=== PATIENT | female | born 1950 | race Caucasian/White ===

== ENCOUNTER 2018-03-31 09:18 | Outpatient (REF) | payer SELFPAY ==
[2018-04-04 10:03] LABS: HBs Antibody, Quant <3.1 mIU/mL; Hepatitis B Surface Ab Negative
[2018-04-04 10:50] LABS: Measles IgG Antibody Positive; Mumps Antibody IgG Positive (Negative); Varicella IgG Antibody Positive
[2018-04-04 11:03] LABS: Rubella IgG Ab (UVM) Positive
[2018-04-04 14:54] LABS: TB Interpretation Negative (NEGAT); TB1 Ag minus Nil 0.04 IU/mL; TB2 Ag minus Nil 0.02 IU/mL
== END 2018-03-31 09:38 ==
LOC: LBO 09:18
PROVIDERS: PCP Family Medicine; Visit Provider Nurse Practitioner Family
DX: Z02.1 Encounter for pre-employment examination (principal); Z01.84 Encounter for antibody response examination
CPT/HCPCS: 36415; 86706; 86787; 86480; 86735; 86762; 86765

== ENCOUNTER 2018-09-17 23:12 | Emergency (ER) | payer MEDICARE, SELFPAY ==
[2018-09-17 23:18] VITALS: BP 151/85; PULSE 88; RESP 16; TEMP 36.8; O2SAT 97
--- NOTE | 2018-09-17 23:25 | W.ED.GENAD ---
Discharge Plan Disposition Patient Disposition: HOME Condition: Stable Discharge Details Chief Complaint: Trauma Clinical Impression: Numbness of left hand Primary Care Provider: Eulogio Eaton ED Provider: Galo Leigh Home Meds and New Rx's Prescriptions: No Action glipizide 10 MG tablet 10 mg PO DAILY RF: 0 aspirin 325 MG tablet 325 mg PO DAILY RF: 0 calcium carbonate [Calcium 600] 600 MG tablet 1,200 mg PO DAILY RF: 0 simvastatin 80 MG tablet 80 mg PO HS RF: 0 lisinopril 10 mg Tablet 10 mg PO DAILY RF: 0 Januvia 25 mg Tablet 25 mg PO DAILY RF: 0 Discharge Instructions Instructions: Peripheral Neuropathy (ED) Medical Decision Making 68 yo female comes in with complaints of numbness in the left hand. She states that a few days ago she tripped on a step and caught herself with her left hand. Did not have loc. Has no pain but has noticed she has had numbness in all her fingers and having a harder time typing so came here for an eval. 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 No other weakness or other findings to suggest cva and nih of 0. Suspsect likely mild peripheral neuropathy from the fall. Advised f/u with pcp and return precautions given Differential Diagnosis neuropathy, carpal tunnel HPI General Mode of arrival: ambulatory. Date/Time Provider Initiated Documentation: 09/17/18 23:25. Limitations to Documentation: no limitations. Information obtained by: patient. History of Present Illness 68 year old F presents to the emergency department with the chief complaint of left hand numbness, described as moderate, and is localized to the left and upper extremity. Patient reports no radiation. Patient started experiencing this day(s) (4) and it has been constant. No relieving factors improve symptom(s), No exacerbating factors reported . Patient notes no other symptoms.. Patient did receive the following treatments prior to arrival, none Related Data Home Medications Medication Instructions Recorded Confirmed aspirin 325 mg PO DAILY 09/04/12 09/17/18 calcium carbonate [Calcium] 1,200 mg PO DAILY 09/04/12 09/17/18 glipizide 10 mg PO DAILY 09/04/12 09/17/18 simvastatin 80 mg PO HS 09/04/12 09/17/18 lisinopril 10 mg PO DAILY 09/17/18 09/17/18 sitagliptin [Januvia] 25 mg PO DAILY 09/17/18 09/17/18 Allergies Allergy/AdvReac Type Severity Reaction Status Date / Time Sulfa (Sulfonamide Allergy Unverified 09/17/18 23:18 Antibiotics) codeine [Codeine] AdvReac Nausea Unverified 09/17/18 23:18 General Stated Complaint: Trauma KATHERINE: 4 Review of Systems Review of Systems All systems reviewed & are unremarkable except as noted in HPI and below Constitutional Denies fever(s) Cardiovascular Denies dyspnea Respiratory Denies dyspnea Gastrointestinal Denies vomiting Musculoskeletal Denies joint swelling PFSH Social History Smoking/Tobacco Use Status: Never Alcohol Intake: never Drug use: Never Substance use type: does not use Do you feel safe at home: Yes Do you feel safe in your relationship?: Yes Exam Const General: no acute distress Orientation: alert HENMT Head: normal to inspection Ears: external ears normal General nose exam: external nose normal Mouth: moist mucous membranes Eyes General: appearance normal, both eyes and all related structures Neck Neck: normal visual inspection Resp Effort & Inspection: normal respiratory effort and able to speak in complete sentences Cardio Rate: regular rate Skin General skin exam: no rashes or lesions noted Neuro General: alert and oriented x3 Extrem General: normal to inspection Psych Mental Status: mental status grossly normal Course Vital Signs Temperature 36.8 C 09/17/18 23:18 Pulse 88 09/17/18 23:18 Respiratory Rate 16 09/17/18 23:18 Blood Pressure 151/85 H 09/17/18 23:18 Pulse Oximetry 97 09/17/18 23:18 Temperature 36.8 C 09/17/18 23:18 Pulse 88 09/17/18 23:18 Respiratory Rate 16 09/17/18 23:18 Respiratory Effort 09/17/18 23:18 Blood Pressure 151/85 H 09/17/18 23:18 Blood Pressure Position Sitting 09/17/18 23:18 Pulse Oximetry 97 09/17/18 23:18 Oxygen Delivery Method Room Air 09/17/18 23:18 Oxygen Flow Rate 0 09/17/18 23:18
--- NOTE | 2018-09-17 23:36 | ED.GENADUL_ITS ---
Discharge Plan Disposition Patient Disposition: HOME Condition: Stable Discharge Details Chief Complaint: Trauma Clinical Impression: Numbness of left hand Primary Care Provider: Eulogio Eaton ED Provider: Galo Leigh Home Meds and New Rx's Prescriptions: No Action glipizide 10 MG tablet 10 mg PO DAILY RF: 0 aspirin 325 MG tablet 325 mg PO DAILY RF: 0 calcium carbonate [Calcium 600] 600 MG tablet 1,200 mg PO DAILY RF: 0 simvastatin 80 MG tablet 80 mg PO HS RF: 0 lisinopril 10 mg Tablet 10 mg PO DAILY RF: 0 Januvia 25 mg Tablet 25 mg PO DAILY RF: 0 Discharge Instructions Instructions: Peripheral Neuropathy (ED) Medical Decision Making 68 yo female comes in with complaints of numbness in the left hand. She states that a few days ago she tripped on a step and caught herself with her left hand. Did not have loc. Has no pain but has noticed she has had numbness in all her fingers and having a harder time typing so came here for an eval. 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 No other weakness or other findings to suggest cva and nih of 0. Suspsect likely mild peripheral neuropathy from the fall. Advised f/u with pcp and return precautions given Differential Diagnosis neuropathy, carpal tunnel HPI General Mode of arrival: ambulatory . Date/Time Provider Initiated Documentation: 09/17/18 23:25 . Limitations to Documentation: no limitations . Information obtained by: patient . History of Present Illness 68 year old F presents to the emergency department with the chief complaint of left hand numbness, described as moderate, and is localized to the left and upper extremity. Patient reports no radiation. Patient started experiencing this day(s) (4) and it has been constant. No relieving factors improve symptom(s), No exacerbating factors reported . Patient notes no other symptoms.. Patient did receive the following treatments prior to arrival, none Related Data Home Medications Medication Instructions Recorded Confirmed aspirin 325 mg PO DAILY 09/04/12 09/17/18 calcium carbonate [Calcium] 1,200 mg PO DAILY 09/04/12 09/17/18 glipizide 10 mg PO DAILY 09/04/12 09/17/18 simvastatin 80 mg PO HS 09/04/12 09/17/18 lisinopril 10 mg PO DAILY 09/17/18 09/17/18 sitagliptin [Januvia] 25 mg PO DAILY 09/17/18 09/17/18 Allergies Allergy/AdvReac Type Severity Reaction Status Date / Time Sulfa (Sulfonamide Allergy Unverified 09/17/18 23:18 Antibiotics) codeine [Codeine] AdvReac Nausea Unverified 09/17/18 23:18 General Stated Complaint: Trauma KATHERINE: 4 Review of Systems Review of Systems All systems reviewed & are unremarkable except as noted in HPI and below Constitutional Denies fever(s) Cardiovascular Denies dyspnea Respiratory Denies dyspnea Gastrointestinal Denies vomiting Musculoskeletal Denies joint swelling PFSH Social History Smoking/Tobacco Use Status: Never Alcohol Intake: never Drug use: Never Substance use type: does not use Do you feel safe at home: Yes Do you feel safe in your relationship?: Yes Exam Const General: no acute distress Orientation: alert HENMT Head: normal to inspection Ears: external ears normal General nose exam: external nose normal Mouth: moist mucous membranes Eyes General: appearance normal, both eyes and all related structures Neck Neck: normal visual inspection Resp Effort & Inspection: normal respiratory effort and able to speak in complete sentences Cardio Rate: regular rate Skin General skin exam: no rashes or lesions noted Neuro General: alert and oriented x3 Extrem General: normal to inspection Psych Mental Status: mental status grossly normal Course Vital Signs Temperature 36.8 C 09/17/18 23:18 Pulse 88 09/17/18 23:18 Respiratory Rate 16 09/17/18 23:18 Blood Pressure 151/85 H 09/17/18 23:18 Pulse Oximetry 97 09/17/18 23:18 Temperature 36.8 C 09/17/18 23:18 Pulse 88 09/17/18 23:18 Respiratory Rate 16 09/17/18 23:18 Respiratory Effort 09/17/18 23:18 Blood Pressure 151/85 H 09/17/18 23:18 Blood Pressure Position Sitting 09/17/18 23:18 Pulse Oximetry 97 09/17/18 23:18 Oxygen Delivery Method Room Air 09/17/18 23:18 Oxygen Flow Rate 0 09/17/18 23:18
== END 2018-09-17 23:30 | disposition home or self-care (01) ==
LOC: ER 23:46
PROVIDERS: Emergency Provider Emergency Medicine; PCP Family Medicine
DX: R20.2 Paresthesia of skin (principal)
CPT/HCPCS: 29125; 99283; 99282; L3908

== ENCOUNTER 2018-10-07 15:55 | Emergency (ER) | payer MEDICARE, SELFPAY ==
[2018-10-07 16:01] VITALS: BP 169/86; PULSE 106; RESP 18; TEMP 36.8; O2SAT 96
--- NOTE | 2018-10-07 16:51 | DI.COMBO_ITS ---
SYMPTOM/DIAGNOSIS: DISTAL RADIUS LT WRIST PAIN, LT ARM COMPLETE PARALYSIS NONCONTRAST HEAD CT: A noncontrast cranial CT was performed. Note is made of an area of decreased attenuation in the right parietal lobe suggesting cerebral edema. There is effacement of the sulci in this area with moderate generalized cerebral atrophy. There is a rounded mass like radiodensity measuring about 1.6 cm. in diameter located in the cortex highly suspicious for mass lesion. No other focal intracranial lesion identified. No evidence of acute hemorrhage. The orbital and temporal bone structures appear intact. The visualized paranasal sinuses and mastoid air cells are clear. CONCLUSION: Findings suggestive of a right parietal lobe cortical mass with surrounding edema, the findings are suspicious for metastatic disease. Correlation with brain MRI recommended. CERVICAL SPINE CT: CT examination of the cervical spine was performed utilizing multi acquisition and multi planar reconstruction. Images obtained through the lung apices are unremarkable. No cervical mass or adenopathy is seen. Tracheal laryngeal structures appear intact. No evidence of acute cervical fracture. LEFT WRIST: Three views were obtained. Alignment appears within normal limits. There is minimal spurring at the greater multangular first metacarpal joint. No evidence of acute fracture.
--- NOTE | 2018-10-07 17:03 | W.ED.GENAD ---
Discharge Plan Discharge Details Chief Complaint: Orthopedic Primary Care Provider: Eulogio Eaton ED Provider: Calvin Fried Home Meds and New Rx's Prescriptions: No Action aspirin 325 MG tablet 325 mg PO DAILY RF: 0 calcium carbonate [Calcium 600] 600 MG tablet 1,200 mg PO DAILY RF: 0 atorvastatin 80 mg Tablet 80 mg PO QPM RF: 0 bupropion HCl 150 mg Tablet Extended Release 24 Hr 150 mg PO QAM RF: 0 lisinopril 10 mg Tablet 10 mg PO DAILY RF: 0 Januvia 25 mg Tablet 100 mg PO DAILY RF: 0 Medical Decision Making This is a 68-year-old female with past medical history of breast cancer who presents today for evaluation of notable left arm weakness and subjective tingling. She did fall roughly 3 to 4 weeks ago and had mild tingling in her fingers at that time but no significant weakness. Over the last few weeks symptoms have notably worsen. Exam demonstrates near complete paralysis of the left upper extremity. She has no head neck back or shoulder pain whatsoever. Minimal wrist pain on palpation. Sensation is intact including pinprick and light touch for the left upper extremity. No evidence of vascular compromise. With the patient's distant fall, as well as her history of breast cancer I do think that CT imaging is indicated to rule out acute severe pathology of bleed, malignancy, or stroke. Differential also includes double crush syndrome. With no other focal neurologic deficits, no vascular deficits I do not think that angiographic imaging is indicated at this time. 5:[address] image of the head and neck have returned and demonstrate evidence of notable mass in her right brain with extensive right cerebral edema. Mass is present in the right parietal lobe, and a virtual radiology does feel that this is likely congruent with metastatic disease secondary to the significant cerebral edema. CT scan of the neck is negative for any acute process per virtual radiology. We will contact [facility] neurosurgery for further recommendations. With the cerebral edema, 10 mg of Decadron likely indicated in this scenario, however she is otherwise neurovascularly intact, and notably stable. 7 PM I have discussed the case with Dr. Parra of [facility] neurosurgery, he recommends emergent transfer via ER to ER for emergent MRI and neurosurgery evaluation. He agrees with the current Decadron that has been given. He does recommend basic labs. These have been done, and are relatively benign. I have also discussed the case with Dr. Roberts in the emergency department who also agrees with the ER to ER transfer and accepts the patient. The patient remains hemodynamically stable here. No indication for emergent intubation. She shows no neurologic deficits aside for the left arm paralysis. I have extensively reviewed the treatment plan with the patient. I have addressed all patient concerns at this time. I have also discussed the plan with the admitting physician and they agree with the current assessment and plan and have agreed to assume responsibility for the patient. All parties demonstrate verbal understanding and agreement with our assessment and plan at this time. At time of transfer the patient was reassessed and continued to demonstrate current medical stability. No signs of acute respiratory distress requiring intubation, hemodynamic instability requiring pressor support, or rapidly declining mental status. The patient is stable for transport. COMPARISON: No relevant prior studies available. FINDINGS: Bones/joints: No fracture or subluxation. Minimal degenerative changes. Soft tissues: Normal. IMPRESSION: No acute findings. Dictated and Authenticated by: Gatito Saravia MD. Ordering:JERRCIA Simpson MD COMPARISON: No relevant prior studies available. FINDINGS: Bones/joints: No fracture or subluxation. Minimal degenerative changes. Soft tissues: Normal. IMPRESSION: No acute findings. Dictated and Authenticated by: Gatito Saravia MD. Ordering:JERRICA Simpson MD EXAM: CT Head Without Contrast EXAM DATE/TIME: 10/07/2018 4:24 PM CLINICAL HISTORY: 68 years old, female; Signs and symptoms; Other: Left arm complete paralysis TECHNIQUE: Imaging protocol: Axial computed tomography images of the head/brain without contrast. Coronal and sagittal reformatted images were created and reviewed. Other technique: STROKE PROTOCOL was implemented. COMPARISON: No relevant prior studies available. FINDINGS: Brain: There is a rounded mass in the superior right parietal lobe noted to measure up to 1.6 x 1.6 cm with marked surrounding the edema in the right cerebrum. Mild age-related involutional changes. No hemorrhage. Ventricles: Normal. No ventriculomegaly. Bones/joints: Unremarkable. No acute fracture. Sinuses: Visualized sinuses are unremarkable. No acute sinusitis. Mastoid air cells: Visualized mastoid air cells are unremarkable. No mastoid effusion. Soft tissues: Unremarkable. IMPRESSION: Right parietal lobe mass with extensive right cerebral edema. Consider further characterization with contrast-enhanced MRI. ASSESSMENT: ASPECTS ([place] Stroke Program Early CT Score) is 10. EXAM: CT Cervical Spine Without Contrast EXAM DATE/TIME: 10/07/2018 4:24 PM CLINICAL HISTORY: 68 years old, female; Signs and symptoms; Other: Left arm complete paralysis TECHNIQUE: Imaging protocol: Axial computed tomography images of the cervical spine without contrast. Coronal and sagittal reformatted images were created and reviewed. COMPARISON: No relevant prior studies available. FINDINGS: Vertebrae: No acute fracture. Normal alignment. Discs/Spinal canal/Neural foramina: Moderate degenerative spondylitic changes. No severe canal stenosis. Soft tissues: Unremarkable. Lungs: Lung apices are normal. Vasculature: Atherosclerosis. IMPRESSION: No acute findings. Dictated and Authenticated by: Gatito Saravia MD. Ordering:JERRICA Simpson MD HPI General Date/Time Provider Initiated Documentation: 10/07/18 15:59. HPI Narrative: This is a very pleasant 68-year-old female with a past medical history of breast cancer in 2006, cardiac stent, cholesterol, borderline diabetes, and hypertension who presents today for severe weakness of her left arm. She was initially seen and assessed here on 09/17 by my colleague, at which time her only symptom was tingling in the left hand (she is right-hand dominant). At that time there was no weakness in the upper extremity, nearly a subjective tingling in the hand, there was a conjunction of fall at that time, but the patient denied any trauma to her head or neck. She only had a mild amount of trauma to her hand. Since then the patient has noted progressive weakness of her left upper extremity for all components. Patient states that she was seen by her PCP who then referred her to physical therapy. In spite of physical therapy the patient has noted worsening of her weakness, and at this point she describes her left arm is feeling nearly paralyzed, with only being able to do small movements of her fingers. She admits to sensation throughout the entire arm, but also admits to a tingling and prickling sensation throughout the entire arm as well. She does admit to pain in the proximal wrist but denies any pain in the arm neck head shoulder elbow or hand. She denies any burning sensation. She denies any other complaints. Of note she does state that 2 days ago she did fall, she did hit her left shoulder and this did make her symptoms slightly worse. She denies any pain in her left shoulder though. She has no other complaints at this time. Of note her breast cancer was in 2006 and surgically excised from the left breast. Related Data Home Medications Medication Instructions Recorded Confirmed aspirin 325 mg PO DAILY 09/04/12 10/07/18 calcium carbonate [Calcium] 1,200 mg PO DAILY 09/04/12 10/07/18 lisinopril 10 mg PO DAILY 09/17/18 10/07/18 sitagliptin [Januvia] 100 mg PO DAILY 09/17/18 10/07/18 atorvastatin 80 mg PO QPM 10/07/18 10/07/18 bupropion HCl 150 mg PO QAM 10/07/18 10/07/18 Allergies Allergy/AdvReac Type Severity Reaction Status Date / Time Sulfa (Sulfonamide Allergy Unverified 10/07/18 18:17 Antibiotics) codeine [Codeine] AdvReac Nausea Unverified 10/07/18 18:17 General Stated Complaint: Orthopedic KATHERINE: 3 Review of Systems Review of Systems All systems reviewed & are unremarkable except as noted in HPI and below PFSH Social History Smoking/Tobacco Use Status: Never Alcohol Intake: never Drug use: Never Substance use type: does not use Do you feel safe at home: Yes Do you feel safe in your relationship?: Yes Exam Narrative Exam Narrative: 1.Const: Well-nourished, Well-developed, appearing stated age 2.Eyes: PERRL, no conjunctival injection, and symmetrical lids. 3.ENT: Atraumatic external nose and ears. Moist MM. Neck: Symmetric, trachea midline, No thyromegaly. 4.CVS: +S1/S2, No murmurs or gallops. Peripheral pulses 2+ and equal in all extremities. Brisk capillary refill in all extremities. 5.RESP: Unlabored respiratory effort. Clear to auscultation bilaterally. No wheezes rales or rhonchi 6.GI: Soft, Nontender/Nondistended, No hepatosplenomegaly. No guarding or rebound. 7.MSK: Normocephalic/Atraumatic, Extremities w/o deformity. Mild tenderness on palpation of the left distal radius and ulna, no snuffbox tenderness. No cyanosis or clubbing, left upper extremity demonstrates no strength whatsoever in the shoulder, minimal 1 out of 5 strength at the elbow for flexion but not extension. No strength for the wrist movement, minimal movement is present for the fingers, with only slight flexion strength present. However sensation is intact throughout for both light touch and pinprick for all fingers, arm, forearm, and shoulder. Capillary refill is brisk in all distal fingers, radial pulse +2 bilaterally. Right upper extremity and bilateral lower extremity is otherwise normal. 8.Skin: Warm, Dry. No rashes or lesions. 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 Sensation grossly intact, please see musculoskeletal for sensation description. We had a near total paralysis of the left upper extremity, please see musculoskeletal. However the right extremity demonstrates no evidence of dysdiadochokinesia, or difficulty with [id number]. Normal movement of the lower extremities bilaterally. 10.Psych: (AAO) x3. Appropriate mood and affect Course Vital Signs Temperature 36.8 C 10/07/18 16:01 Pulse 106 H 10/07/18 16:01 Respiratory Rate 18 10/07/18 16:01 Blood Pressure 169/86 H 10/07/18 16:01 Pulse Oximetry 96 10/07/18 16:01 Temperature 36.8 C 10/07/18 16:01 Temperature Source Skin 10/07/18 16:01 Pulse 106 H 10/07/18 16:01 Respiratory Rate 18 10/07/18 16:01 Respiratory Effort Non-Labored 10/07/18 16:28 Blood Pressure 169/86 H 10/07/18 16:01 Blood Pressure Position Sitting 10/07/18 16:01 Pulse Oximetry 96 10/07/18 16:01
--- NOTE | 2018-10-07 17:07 | DI.VRAD_ITS ---
Addendum created by Gatito Saravia MD on 10/07/2018 5:15:16 PM EDT THIS REPORT CONTAINS FINDINGS THAT MAY BE CRITICAL TO PATIENT CARE. The findings were verbally communicated via telephone conference with BILLY BURR at 5:15 PM EDT on 10/07/2018. The findings were acknowledged and understood. Initial report created on 10/07/2018 5:07:20 PM EDT EXAM: CT Head Without Contrast EXAM DATE/TIME: 10/07/2018 4:24 PM CLINICAL HISTORY: 68 years old, female; Signs and symptoms; Other: Left arm complete paralysis TECHNIQUE: Imaging protocol: Axial computed tomography images of the head/brain without contrast. Coronal and sagittal reformatted images were created and reviewed. Other technique: STROKE PROTOCOL was implemented. COMPARISON: No relevant prior studies available. FINDINGS: Brain: There is a rounded mass in the superior right parietal lobe noted to measure up to 1.6 x 1.6 cm with marked surrounding the edema in the right cerebrum. Mild age-related involutional changes. No hemorrhage. Ventricles: Normal. No ventriculomegaly. Bones/joints: Unremarkable. No acute fracture. Sinuses: Visualized sinuses are unremarkable. No acute sinusitis. Mastoid air cells: Visualized mastoid air cells are unremarkable. No mastoid effusion. Soft tissues: Unremarkable. IMPRESSION: Right parietal lobe mass with extensive right cerebral edema. Consider further characterization with contrast-enhanced MRI. ASSESSMENT: ASPECTS ([place] Stroke Program Early CT Score) is 10. EXAM: CT Cervical Spine Without Contrast EXAM DATE/TIME: 10/07/2018 4:24 PM CLINICAL HISTORY: 68 years old, female; Signs and symptoms; Other: Left arm complete paralysis TECHNIQUE: Imaging protocol: Axial computed tomography images of the cervical spine without contrast. Coronal and sagittal reformatted images were created and reviewed. COMPARISON: No relevant prior studies available. FINDINGS: Vertebrae: No acute fracture. Normal alignment. Discs/Spinal canal/Neural foramina: Moderate degenerative spondylitic changes. No severe canal stenosis. Soft tissues: Unremarkable. Lungs: Lung apices are normal. Vasculature: Atherosclerosis. IMPRESSION: No acute findings. Dictated and Authenticated by: Gatito Saravia MD. Ordering:JERRICA Simpson MD
--- NOTE | 2018-10-07 17:26 | DI.VRAD_ITS ---
EXAM: XR Left Wrist Complete, 3 or more Views EXAM DATE/TIME: 10/07/2018 4:59 PM CLINICAL HISTORY: 68 years old, female; Wrist; Left; Patient HX: Distal radius pain TECHNIQUE: Imaging protocol: XR Left wrist. Views: 3 or more views. COMPARISON: No relevant prior studies available. FINDINGS: Bones/joints: No fracture or subluxation. Minimal degenerative changes. Soft tissues: Normal. IMPRESSION: No acute findings. Dictated and Authenticated by: Gatito Saravia MD. Ordering:JERRICA Simpson MD
[2018-10-07] MEDS: Dexamethasone 10 MG/ML VIAL IM (17:37)
[2018-10-07 18:34] LABS: Abs Immature Grans 0.03 k/cumm (0.0-0.09); HCT 39.2 % (36.0-46.0); HGB 13.2 g/dL (12.0-15.5); Mean Corp. HGB Concentration 33.7 g/dL (32.0-36.0); Mean Corpuscular Hemoglobin 30.6 pg (27.0-33.0); Mean Platelet Volume 9.8 fL (8.0-11.0); Platelet Count 263 x1000/uL (130-400); RBC 4.31 m/cumm (4.00-5.20); RBC Distribution Width 13.2 % (11.7-14.6)
[2018-10-07 18:55] LABS: Absolute Eosinophil Count 0.98 k/cumm (0.0-0.7); Absolute Lymphocyte Count 1.72 k/cumm (1.2-3.4); Absolute Monocyte Count 0.49 k/cumm (0.11-0.7); Atypical Lymphocytes % 4
[2018-10-07 18:56] LABS: Diff Comment Manual Differential; RBC Morphology Normal
[2018-10-07 19:01] LABS: ALT 27 U/L (12-78); AST 11 U/L (15-37); Albumin 3.7 g/dL (3.4-5.0); Alkaline Phosphatase 94 U/L (46-116); Anion Gap 10.9 mmol/L (3-11); BUN 22 mg/dL (7-18); Bilirubin, Total 0.6 mg/dL (0.2-1.0); CO2 26.1 mmol/L (21.0-32.0); CREATININE 0.84 mg/dL (0.55-1.02); Calcium 9.5 mg/dL (8.5-10.1); Chloride 101 mmol/L (98-107); Glucose 166 mg/dL (70-100); Potassium 3.9 mmol/L (3.5-5.1); Sodium 138 mmol/L (136-145); Total Protein 7.7 g/dL (6.4-8.2)
[2018-10-07 19:26] VITALS: BP 143/83; PULSE 106; RESP 18; O2SAT 96
[2018-10-07] MEDS: Ondansetron 4 MG/2 ML VIAL (19:34)
[2018-10-07 19:39] VITALS: BP 143/83; PULSE 106; RESP 18; O2SAT 96
== END 2018-10-07 19:39 ==
PROVIDERS: Emergency Provider Student in an Organized Health Care Education/Training Program; PCP Family Medicine
DX: G93.9 Disorder of brain, unspecified (principal); G93.6 Cerebral edema; G83.24 Monoplegia of upper limb affecting left nondominant side; W01.0XXA Fall on same level from slipping, tripping and stumbling without subsequent striking against object, initial encounter
CPT/HCPCS: 36415; 80053; 96372; 96374; 99285; 70450; 72125; 73110; 85025; 99284; J1100; J2405

== ENCOUNTER 2018-11-09 16:26 | Emergency (ER) | payer MEDICARE, SELFPAY ==
[2018-11-09] VITALS (33 sets, daily range): BP systolic 101–141; BP diastolic 38–116; PULSE 60–88; RESP 11–30; TEMP 36.7; O2SAT 94–97
--- NOTE | 2018-11-09 17:05 | DI.CT_ITS ---
SYMPTOM/DIAGNOSIS: CANCER, SMALL BLEED, SEIZURE TODAY CT BRAIN: Noncontrast. Comparison 10/07/18. FINDING: There is again seen a mass in the biparietal lobe currently measuring 1.8 x 1.5 cm. This compares with 1.6 x 1.3 cm. There is a prominent amount of vasogenic edema in the surrounding white matter. Since the prior examination there is a new 1 x 0.9 x 0.8 cm round hyperdense region at the medial aspect of the right parietal mass most concerning for a small acute hemorrhage. There is mild effacement of the adjacent sulci. There is also again seen a mild 2 mm right to left midline shift. This shift is unchanged compared to the prior examination The ventricles and sulci are mildly prominent consistent with the patient's age. There are areas of decreased attenuation of the white matter consistent with small vessel ischemic disease. The ventricles are intact. The basilar cisterns are patent. The calvarium is intact. The visualized paranasal sinuses are clear. The mastoid air cells arae well pneumatized. IMPRESSION: 1. New 1 x 0.9 x 0.8 cm hyperdense focus at the medial aspect of the previously noted right parietal lesion suggesting a small acute hemorrhage. 2. Slight increase in size of the right parietal mass since 10/07/18, again metastatic disease is suspected. Moderate surrounding vasogenic edema in the right frontal and parietal lobe. 3. Persistent stable 2 mm right to left midline shift.
--- NOTE | 2018-11-09 17:14 | NUR.NOTE ---
Nursing Note: Pt reports that her left arm suddenly started shaking today. Pt reports that she under went radiation therapy yesterday for a brain tumor. Pt reports that her symptoms started suddnely today. Denied loss of consciousness. Pt was able to recall the entire episode.
[2018-11-09 17:24] LABS: Abs Immature Grans 0.08 k/cumm (0.0-0.09); Absolute Basophil Count 0.01 k/cumm (0.0-0.2); Absolute Eosinophil Count 0.01 k/cumm (0.0-0.7); Absolute Lymphocyte Count 1.05 k/cumm (1.2-3.4); Absolute Monocyte Count 0.57 k/cumm (0.11-0.7); Absolute Neutrophil Count 6.37 k/cumm (1.2-6.7); Basophils % 0.1; Eosinophils % 0.1; HCT 42.8 % (36.0-46.0); HGB 14.4 g/dL (12.0-15.5); Mean Corp. HGB Concentration 33.6 g/dL (32.0-36.0); Mean Corpuscular Volume 92.2 fL (80-95); Mean Platelet Volume 10.4 fL (8.0-11.0); Neutrophils % 78.8; Platelet Count 166 x1000/uL (130-400); RBC 4.64 m/cumm (4.00-5.20); RBC Distribution Width 14.6 % (11.7-14.6); White Blood Cell Count 8.09 k/cumm (4.4-10.8)
[2018-11-09 17:37] LABS: ALT 123 U/L (12-78); AST 24 U/L (15-37); Albumin 3.7 g/dL (3.4-5.0); Alkaline Phosphatase 103 U/L (46-116); BUN 21 mg/dL (7-18); Bilirubin, Total 0.7 mg/dL (0.2-1.0); CREATININE 0.82 mg/dL (0.55-1.02); Calcium 9.2 mg/dL (8.5-10.1); Chloride 99 mmol/L (98-107); Glucose 312 mg/dL (70-100); Sodium 137 mmol/L (136-145)
--- NOTE | 2018-11-09 18:15 | DI.VRAD_ITS ---
EXAM: CT Head Without Contrast EXAM DATE/TIME: 11/09/2018 5:07 PM CLINICAL HISTORY: 68 years old, female; Signs and symptoms; Other: Seizure today, small head bleed, CA TECHNIQUE: Imaging protocol: Axial computed tomography images of the head without contrast. Coronal and sagittal reformatted images were created and reviewed. COMPARISON: CT HEAD CERVICAL SPINE WO 10/07/2018 4:39 PM FINDINGS: Brain: Mild generalized atrophy with minimal periventricular white matter ischemic changes consistent with the patient's advanced age. No extra-axial fluid collections. No evidence of acute or subacute intracranial ischemia/infarct. Midline shift: 2 mm [id number] midline shift unchanged. No evidence of herniation. Ventricles: Ventricles normal. Bones/joints: The calvarium and visualized facial bones are intact. Sinuses: Visualized paranasal sinuses are clear. Mastoid air cells: Visualized mastoid air cells are clear. Orbits: There is a new 10 x 9 by 8mm focus of hyperdensity measuring 60 Hounsfield units along the medial margin of the previously identified mass lesion in the right frontoparietal distribution. This is concerning for small acute hemorrhage. Orbital contents demonstrate no evidence of acute abnormality. Soft tissues: The mass itself measures measures 18.2 x 14.7 mm on coronal series 7 image 55, which is increased from the previous exam 10/07/2018, measuring 16.0 x 13.2 mm on comparison coronal image 48 of series 7. This suggests progression of intracranial malignancy. There is moderate surrounding vasogenic edema which is not substantially changed in severity or distribution from the previous study. The screws is mild local mass effect with asymmetric right frontal sulcal effacement. The scalp and visualized soft tissues are unremarkable. Vasculature: Mild atherosclerotic vascular calcification. IMPRESSION: 1. There is a new 10 x 9 by 8mm focus of hyperdensity along the medial margin of the previously identified cortically based right frontoparietal lesion, suggesting a small acute hemorrhage. 2. The mass lesion itself is slightly increased in size since 10/07/2018, suggesting progression of malignancy. 3. There is moderate surrounding vasogenic edema in the right frontal lobe producing mild local mass effect with only slight 2 mm right to left midline shift which is unchanged. 4. THIS REPORT CONTAINS FINDINGS THAT MAY BE CRITICAL TO PATIENT CARE. The findings were verbally communicated via telephone conference with BILLY BURR at 6:13 PM EDT on 11/09/2018. The findings were acknowledged and understood. Dictated and Authenticated by: Eulogio Porter MD. Ordering:JERRICA Simpson MD
--- NOTE | 2018-11-09 19:35 | W.ED.GENAD ---
Discharge Plan Disposition Patient Disposition: [facility] Condition: Stable Discharge Details Chief Complaint: Seizure Clinical Impression: Focal seizure, Brain mass Primary Care Provider: Eulogio Eaton ED Provider: Calvin Burr Home Meds and New Rx's Prescriptions: No Action calcium carbonate [Calcium 600] 600 MG tablet 1,200 mg PO DAILY RF: 0 atorvastatin 80 mg Tablet 80 mg PO QPM RF: 0 bupropion HCl 150 mg Tablet Extended Release 24 Hr 150 mg PO QAM RF: 0 lisinopril 10 mg Tablet 10 mg PO DAILY RF: 0 Januvia 25 mg Tablet 100 mg PO DAILY RF: 0 Medical Decision Making Upon my evaluation, this patient had a high probability of imminent or life-threatening deterioration, which required my direct attention, intervention, and personal management. I have personally provided 45 minutes of critical care time exclusive of time spent on separately billable procedures. Time includes review of laboratory data, radiology results, discussion with consultants, and monitoring for potential decompensation. Interventions were performed as documented above. 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 She recently had an MRI which showed a small hemorrhage roughly a week ago, and had radiation therapy yesterday. 48 hours ago she noticed a small tremor of her left arm, which results in a complete convulsion of the arm with notable excellence leader, flexion at the elbow, and drying up from the shoulder. Over the last 12 to 24 hours the frequency and severity of the symptoms is notably increased. Here in the ED she has had 3-4 episodes already. It is gone from just being the hand to now encompassing the elbow and shoulder a small amount of the platysma on the left. She is otherwise neurologically intact with no deficits whatsoever aside for her chronic components. Airway is notably intact, no signs of obtundation. She has been taking her 500 mg of Keppra twice daily, and the Decadron as directed outpatient. With her concerning symptoms, repeat head CT was done, there is evidence of continued vasogenic edema, the mass, and the small hemorrhage. We did contact [facility] and I initially discussed the case with Leslie Carlos, who reviewed and compared the images, she also discussed with her attending Dr. Manning, and they recommend that the patient be transferred to the neuro ICU for further evaluation. They recommended dosing with a gram of Keppra as well. I reviewed all other components of the case, they had no additional recommendations at this time. Dr. Clarke will be the accepting physician to the ICU, I also spoke with the fellow Dr. Callaway, and discussed the case and findings with him. He agrees with the current plan has no other additional recommendations or concerns. Patient will be transferred to [facility] for neuro ICU management. I have extensively reviewed the treatment plan with the patient. I have addressed all patient concerns at this time. I have also discussed the plan with the admitting physician and they agree with the current assessment and plan and have agreed to assume responsibility for the patient. All parties demonstrate verbal understanding and agreement with our assessment and plan at this time. At time of transfer the patient was reassessed and continued to demonstrate current medical stability. No signs of acute respiratory distress requiring intubation, hemodynamic instability requiring pressor support, or rapidly declining mental status. The patient is stable for transport. Exam(s) EXAM: CT Head Without Contrast EXAM DATE/TIME: 11/09/2018 5:07 PM CLINICAL HISTORY: 68 years old, female; Signs and symptoms; Other: Seizure today, small head bleed, CA TECHNIQUE: Imaging protocol: Axial computed tomography images of the head without contrast. Coronal and sagittal reformatted images were created and reviewed. COMPARISON: CT HEAD CERVICAL SPINE WO 10/07/2018 4:39 PM FINDINGS: Brain: Mild generalized atrophy with minimal periventricular white matter ischemic changes consistent with the patient's advanced age. No extra-axial fluid collections. No evidence of acute or subacute intracranial ischemia/infarct. Midline shift: 2 mm [id number] midline shift unchanged. No evidence of herniation. Ventricles: Ventricles normal. Bones/joints: The calvarium and visualized facial bones are intact. Sinuses: Visualized paranasal sinuses are clear. Mastoid air cells: Visualized mastoid air cells are clear. Orbits: There is a new 10 x 9 by 8mm focus of hyperdensity measuring 60 Hounsfield units along the medial margin of the previously identified mass lesion in the right frontoparietal distribution. This is concerning for small acute hemorrhage. Orbital contents demonstrate no evidence of acute abnormality. Soft tissues: The mass itself measures measures 18.2 x 14.7 mm on coronal series 7 image 55, which is increased from the previous exam 10/07/2018, measuring 16.0 x 13.2 mm on comparison coronal image 48 of series 7. This suggests progression of intracranial malignancy. There is moderate surrounding vasogenic edema which is not substantially changed in severity or distribution from the previous study. The screws is mild local mass effect with asymmetric right frontal sulcal effacement. The scalp and visualized soft tissues are unremarkable. Vasculature: Mild atherosclerotic vascular calcification. IMPRESSION: 1. There is a new 10 x 9 by 8mm focus of hyperdensity along the medial margin of the previously identified cortically based right frontoparietal lesion, suggesting a small acute hemorrhage. 2. The mass lesion itself is slightly increased in size since 10/07/2018, suggesting progression of malignancy. 3. There is moderate surrounding vasogenic edema in the right frontal lobe producing mild local mass effect with only slight 2 mm right to left midline shift which is unchanged. 4. THIS REPORT CONTAINS FINDINGS THAT MAY BE CRITICAL TO PATIENT CARE. The findings were verbally communicated via telephone conference with CALVIN BURR at 6:13 PM EDT on 11/09/2018. The findings were acknowledged and understood. Dictated and Authenticated by: Eulogio Porter MD. Ordering:JERRICA Simpson MD HPI General Date/Time Provider Initiated Documentation: 11/09/18 16:58. HPI Narrative: This is a 68-year-old female with a past medical history of a right-sided brain tumor which was diagnosed roughly a month ago, she is chronically now on Decadron and Keppra 500 mg twice daily. She presents today for evaluation of focal tremor in her left arm. She has chronic left arm paralysis secondary to the tumor, she states that 48 hours ago she noticed a small intermittent tremor in her left hand. It would resolve on its own. No other associated components. She had a radiation therapy yesterday at [facility], and MRI performed roughly a week ago demonstrated an known small hemorrhage. She has been taking her medications as directed, however in spite of this today she noticed a significant worsening in the tremor, encompassing her hand and forearm and becoming more frequent. Aside for this she denies any pain, dizziness, headache, fever chills numbness or tingling new compared to prior symptoms. Related Data Home Medications Medication Instructions Recorded Confirmed calcium carbonate [Calcium] 1,200 mg PO DAILY 09/04/12 11/09/18 lisinopril 10 mg PO DAILY 09/17/18 11/09/18 sitagliptin [Januvia] 100 mg PO DAILY 09/17/18 11/09/18 atorvastatin 80 mg PO QPM 10/07/18 11/09/18 bupropion HCl 150 mg PO QAM 10/07/18 11/09/18 Allergies Allergy/AdvReac Type Severity Reaction Status Date / Time nickel Allergy Unverified 11/09/18 16:46 Sulfa (Sulfonamide Allergy Unverified 11/09/18 16:46 Antibiotics) codeine [Codeine] AdvReac Nausea Unverified 11/09/18 16:46 General Stated Complaint: Seizure KATHERINE: 3 Review of Systems Review of Systems All systems reviewed & are unremarkable except as noted in HPI and below PFSH Social History Smoking/Tobacco Use Status: Never Alcohol Intake: never Drug use: Never Substance use type: does not use Do you feel safe at home: Yes Do you feel safe in your relationship?: Yes Exam Narrative Exam Narrative: 1.Const: Well-nourished, Well-developed, appearing stated age 2.Eyes: PERRL, no conjunctival injection, and symmetrical lids. 3.ENT: Atraumatic external nose and ears. Moist MM. Neck: Symmetric, trachea midline, No thyromegaly. 4.CVS: +S1/S2, No murmurs or gallops. Peripheral pulses 2+ and equal in all extremities. Brisk capillary refill in all extremities. 5.RESP: Unlabored respiratory effort. Clear to auscultation bilaterally. No wheezes rales or rhonchi 6.GI: Soft, Nontender/Nondistended, No hepatosplenomegaly. No guarding or rebound. 7.MSK: Normocephalic/Atraumatic, Extremities w/o deformity or ttp No cyanosis or clubbing, Normal movement of all extremities 8.Skin: Warm, Dry. No rashes or lesions. 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 Sensation grossly intact, normal movement of the right upper extremity and lower extremities, no dysdiadochokinesia for the right hand, normal [id number] for the right hand. No evidence of ataxia or significant imbalance. Left arm demonstrates chronic paralysis, with minimal movement of the fingers and wrist. No significant acute change. 10.Psych: (AAO) x3. Appropriate mood and affect Course Vital Signs Temperature 36.7 C 11/09/18 16:38 Pulse 80 11/09/18 16:38 Respiratory Rate 20 11/09/18 16:38 Blood Pressure 141/88 H 11/09/18 16:38 Pulse Oximetry 96 11/09/18 16:38 Temperature 36.7 C 11/09/18 16:38 Temperature Source Tympanic 11/09/18 16:38 Pulse 72 11/09/18 18:19 Respiratory Rate 12 11/09/18 18:19 Respiratory Effort Short of Breath 11/09/18 16:41 Respiratory Depth Normal 11/09/18 16:41 Respiratory Pattern Normal 11/09/18 16:41 Blood Pressure 132/74 11/09/18 18:19 Blood Pressure Position Sitting 11/09/18 16:38 Pulse Oximetry 96 11/09/18 18:19 Oxygen Delivery Method Room Air 11/09/18 18:19 Oxygen Flow Rate 0 11/09/18 18:19 Pain Level 0 11/09/18 16:38 Lab/Test Results Lab/Test Results: Laboratory Tests Range/Units 11/09/18 11/09/18 17:08 17:08 WBC (4.4-10.8) k/cumm 8.09 RBC (4.00-5.20) m/cumm 4.64 Hgb (12.0-15.5) g/dL 14.4 Hct (36.0-46.0) % 42.8 MCV (80-95) fL 92.2 MCH (27.0-33.0) pg 31.0 MCHC (32.0-36.0) g/dL 33.6 RDW (11.7-14.6) % 14.6 Plt Count (130-400) x1000/uL 166 MPV (8.0-11.0) fL 10.4 Immature Gran % 1.0 Neutrophils % 78.8 Lymphocytes % 13.0 Monocytes % 7.0 Eosinophils % 0.1 Basophils % 0.1 Absolute Neutrophils (1.2-6.7) k/cumm 6.37 Absolute Lymphocytes (1.2-3.4) k/cumm 1.05 L Absolute Monocytes (0.11-0.7) k/cumm 0.57 Absolute Eosinophils (0.0-0.7) k/cumm 0.01 Absolute Basophils (0.0-0.2) k/cumm 0.01 Sodium (136-145) mmol/L 137 Potassium (3.5-5.1) mmol/L 4.0 Chloride (98-107) mmol/L 99 Carbon Dioxide (21.0-32.0) mmol/L 30.0 Anion Gap (3-11) mmol/L 8.0 BUN (7-18) mg/dL 21 H Creatinine (0.55-1.02) mg/dL 0.82 Estimated GFR/1.73 m2 (mL/min/1.73m2) >= 60.00 Glucose (70-100) mg/dL 312 H Calcium (8.5-10.1) mg/dL 9.2 Total Bilirubin (0.2-1.0) mg/dL 0.7 AST (15-37) U/L 24 ALT (12-78) U/L 123 H Alkaline Phosphatase (46-116) U/L 103 Total Protein (6.4-8.2) g/dL 7.0 Albumin (3.4-5.0) g/dL 3.7
[2018-11-09] MEDS: levETIRAcetam 1,000 MG in Normal Saline 100 ML 400 MG IVPB (19:42)
[2018-11-09] MEDS: Dexamethasone 4 MG/ML VIAL IVP (20:23)
--- NOTE | 2018-11-09 20:27 | ED.GENADUL_ITS ---
Discharge Plan Disposition Patient Disposition: [facility] Condition: Stable Discharge Details Chief Complaint: Seizure Clinical Impression: Focal seizure, Brain mass Primary Care Provider: Eulogio Eaton ED Provider: Calvin Burr Home Meds and New Rx's Prescriptions: No Action calcium carbonate [Calcium 600] 600 MG tablet 1,200 mg PO DAILY RF: 0 atorvastatin 80 mg Tablet 80 mg PO QPM RF: 0 bupropion HCl 150 mg Tablet Extended Release 24 Hr 150 mg PO QAM RF: 0 lisinopril 10 mg Tablet 10 mg PO DAILY RF: 0 Januvia 25 mg Tablet 100 mg PO DAILY RF: 0 Medical Decision Making Upon my evaluation, this patient had a high probability of imminent or life- threatening deterioration, which required my direct attention, intervention, and personal management. I have personally provided 45 minutes of critical care time exclusive of time spent on separately billable procedures. Time includes review of laboratory data, radiology results, discussion with consultants, and monitoring for potential decompensation. Interventions were performed as documented above. 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 She recently had an MRI which showed a small hemorrhage roughly a week ago, and had radiation therapy yesterday. 48 hours ago she noticed a small tremor of her left arm, which results in a complete convulsion of the arm with notable control room helper, flexion at the elbow, and drying up from the shoulder. Over the last 12 to 24 hours the frequency and severity of the symptoms is notably increased. Here in the ED she has had 3-4 episodes already. It is gone from just being the hand to now encompassing the elbow and shoulder a small amount of the platysma on the left. She is otherwise neurologically intact with no deficits whatsoever aside for her chronic components. Airway is notably intact, no signs of obtundation. She has been taking her 500 mg of Keppra twice daily, and the Decadron as directed outpatient. With her concerning symptoms, repeat head CT was done, there is evidence of continued vasogenic edema, the mass, and the small hemorrhage. We did contact [facility] and I initially discussed the case with Leslie Carlos, who reviewed and compared the images, she also discussed with her attending Dr. Manning, and they recommend that the patient be transferred to the neuro ICU for further evaluation. They recommended dosing with a gram of Keppra as well. I reviewed all other components of the case, they had no additional recommendations at this time. Dr. Clarke will be the accepting physician to the ICU, I also spoke with the fellow Dr. Callaway, and discussed the case and findings with him. He agrees with the current plan has no other additional recommendations or concerns. Patient will be transferred to [facility] for neuro ICU management. I have extensively reviewed the treatment plan with the patient. I have addressed all patient concerns at this time. I have also d iscussed the plan with the admitting physician and they agree with the current assessment and plan and have agreed to assume responsibility for the patient. All parties demonstrate verbal understanding and agreement with our assessment and plan at this time. At time of transfer the patient was reassessed and continued to demonstrate current medical stability. No signs of acute respiratory distress requiring intubation, hemodynamic instability requiring pressor support, or rapidly declining mental status. The patient is stable for transport. Exam(s) EXAM: CT Head Without Contrast EXAM DATE/TIME: 11/09/2018 5:07 PM CLINICAL HISTORY: 68 years old, female; Signs and symptoms; Other: Seizure today, small head bleed, CA TECHNIQUE: Imaging protocol: Axial computed tomography images of the head without contrast. Coronal and sagittal reformatted images were created and reviewed. COMPARISON: CT HEAD CERVICAL SPINE WO 10/07/2018 4:39 PM FINDINGS: Brain: Mild generalized atrophy with minimal periventricular white matter ischemic changes consistent with the patient's advanced age. No extra-axial fluid collections. No evidence of acute or subacute intracranial ischemia/infarct. Midline shift: 2 mm [id number] midline shift unchanged. No evidence of herniation. Ventricles: Ventricles normal. Bones/joints: The calvarium and visualized facial bones are intact. Sinuses: Visualized paranasal sinuses are clear. Mastoid air cells: Visualized mastoid air cells are clear. Orbits: There is a new 10 x 9 by 8mm focus of hyperdensity measuring 60 Hounsfield units along the medial margin of the previously identified mass lesion in the right frontoparietal distribution. This is concerning for small acute hemorrhage. Orbital contents demonstrate no evidence of acute abnormality. Soft tissues: The mass itself measures measures 18.2 x 14.7 mm on coronal series 7 image 55, which is increased from the previous exam 10/07/2018, measuring 16.0 x 13.2 mm on comparison coronal image 48 of series 7. This suggests progression of intracranial malignancy. There is moderate surrounding vasogenic edema which is not substantially changed in severity or distribution from the previous study. The screws is mild local mass effect with asymmetric right frontal sulcal effacement. The scalp and visualized soft tissues are unremarkable. Vasculature: Mild atherosclerotic vascular calcification. IMPRESSION: 1. There is a new 10 x 9 by 8mm focus of hyperdensity along the medial margin of the previously identified cortically based right frontoparietal lesion, suggesting a small acute hemorrhage. 2. The mass lesion itself is slightly increased in size since 10/07/2018, suggesting progression of malignancy. 3. There is moderate surrounding vasogenic edema in the right frontal lobe producing mild local mass effect with only slight 2 mm right to left midline shift which is unchanged. 4. THIS REPORT CONTAINS FINDINGS THAT MAY BE CRITICAL TO PATIENT CARE. The findings were verbally communicated via telephone conference with CALVIN BURR at 6:13 PM EDT on 11/09/2018. The findings were acknowledged and understood. Dictated and Authenticated by: Eulogio Porter MD. Ordering:JERRICA Simpson MD HPI General Date/Time Provider Initiated Documentation: 11/09/18 16:58 . HPI Narrative: This is a 68-year-old female with a past medical history of a right- sided brain tumor which was diagnosed roughly a month ago, she is chronically now on Decadron and Keppra 500 mg twice daily. She presents today for evaluation of focal tremor in her left arm. She has chronic left arm paralysis secondary to the tumor, she states that 48 hours ago she noticed a small intermittent tremor in her left hand. It would resolve on its own. No other associated components. She had a radiation therapy yesterday at [facility], and MRI performed roughly a week ago demonstrated an known small hemorrhage. She has been taking her medications as directed, however in spite of this today she noticed a significant worsening in the tremor, encompassing her hand and forearm and becoming more frequent. Aside for this she denies any pain, dizziness, headache, fever chills numbness or tingling new compared to prior symptoms. Related Data Home Medications Medication Instructions Recorded Confirmed calcium carbonate [Calcium] 1,200 mg PO DAILY 09/04/12 11/09/18 lisinopril 10 mg PO DAILY 09/17/18 11/09/18 sitagliptin [Januvia] 100 mg PO DAILY 09/17/18 11/09/18 atorvastatin 80 mg PO QPM 10/07/18 11/09/18 bupropion HCl 150 mg PO QAM 10/07/18 11/09/18 Allergies Allergy/AdvReac Type Severity Reaction Status Date / Time nickel Allergy Unverified 11/09/18 16:46 Sulfa (Sulfonamide Allergy Unverified 11/09/18 16:46 Antibiotics) codeine [Codeine] AdvReac Nausea Unverified 11/09/18 16:46 General Stated Complaint: Seizure KATHERINE: 3 Review of Systems Review of Systems All systems reviewed & are unremarkable except as noted in HPI and below PFSH Social History Smoking/Tobacco Use Status: Never Alcohol Intake: never Drug use: Never Substance use type: does not use Do you feel safe at home: Yes Do you feel safe in your relationship?: Yes Exam Narrative Exam Narrative: 1.Const: Well-nourished, Well-developed, appearing stated age 2.Eyes: PERRL, no conjunctival injection, and symmetrical lids. 3.ENT: Atraumatic external nose and ears. Moist MM. Neck: Symmetric, trachea midline, No thyromegaly. 4.CVS: +S1/S2, No murmurs or gallops. Peripheral pulses 2+ and equal in all extremities. Brisk capillary refill in all extremities. 5.RESP: Unlabored respiratory effort. Clear to auscultation bilaterally. No wheezes rales or rhonchi 6.GI: Soft, Nontender/Nondistended, No hepatosplenomegaly. No guarding or re bound. 7.MSK: Normocephalic/Atraumatic, Extremities w/o deformity or ttp No cyanosis or clubbing, Normal movement of all extremities 8.Skin: Warm, Dry. No rashes or lesions. 9.Neuro: [employer] II-XII grossly intact. Sensation grossly intact, normal movement of the right upper extremity and lower extremities, no dysdiadochokinesia for the right hand, normal [id number] for the right hand. No evidence of ataxia or significant imbalance. Left arm demonstrates chronic paralysis, with minimal movement of the fingers and wrist. No significant acute change. 10.Psych: (AAO) x3. Appropriate mood and affect Course Vital Signs Temperature 36.7 C 11/09/18 16:38 Pulse 80 11/09/18 16:38 Respiratory Rate 20 11/09/18 16:38 Blood Pressure 141/88 H 11/09/18 16:38 Pulse Oximetry 96 11/09/18 16:38 Temperature 36.7 C 11/09/18 16:38 Temperature Source Tympanic 11/09/18 16:38 Pulse 72 11/09/18 18:19 Respiratory Rate 12 11/09/18 18:19 Respiratory Effort Short of Breath 11/09/18 16:41 Respiratory Depth Normal 11/09/18 16:41 Respiratory Pattern Normal 11/09/18 16:41 Blood Pressure 132/74 11/09/18 18:19 Blood Pressure Position Sitting 11/09/18 16:38 Pulse Oximetry 96 11/09/18 18:19 Oxygen Delivery Method Room Air 11/09/18 18:19 Oxygen Flow Rate 0 11/09/18 18:19 Pain Level 0 11/09/18 16:38 Lab/Test Results Lab/Test Results: Laboratory Tests Range/Units 11/09/18 11/09/18 17:08 17:08 WBC (4.4-10.8) k/cumm 8.09 RBC (4.00-5.20) m/cumm 4.64 Hgb (12.0-15.5) g/dL 14.4 Hct (36.0-46.0) % 42.8 MCV (80-95) fL 92.2 MCH (27.0-33.0) pg 31.0 MCHC (32.0-36.0) g/dL 33.6 RDW (11.7-14.6) % 14.6 Plt Count (130-400) x1000/uL 166 MPV (8.0-11.0) fL 10.4 Immature Gran % 1.0 Neutrophils % 78.8 Lymphocytes % 13.0 Monocytes % 7.0 Eosinophils % 0.1 Basophils % 0.1 Absolute Neutrophils (1.2-6.7) k/cumm 6.37 Absolute Lymphocytes (1.2-3.4) k/cumm 1.05 L Absolute Monocytes (0.11-0.7) k/cumm 0.57 Absolute Eosinophils (0.0-0.7) k/cumm 0.01 Absolute Basophils (0.0-0.2) k/cumm 0.01 Sodium (136-145) mmol/L 137 Potassium (3.5-5.1) mmol/L 4.0 Chloride (98-107) mmol/L 99 Carbon Dioxide (21.0-32.0) mmol/L 30.0 Anion Gap (3-11) mmol/L 8.0 BUN (7-18) mg/dL 21 H Creatinine (0.55-1.02) mg/dL 0.82 Estimated GFR/1.73 m2 (mL/min/1.73m2) >= 60.00 Glucose (70-100) mg/dL 312 H Calcium (8.5-10.1) mg/dL 9.2 Total Bilirubin (0.2-1.0) mg/dL 0.7 AST (15-37) U/L 24 ALT (12-78) U/L 123 H Alkaline Phosphatase (46-116) U/L 103 Total Protein (6.4-8.2) g/dL 7.0 Albumin (3.4-5.0) g/dL 3.7
== END 2018-11-09 21:36 | disposition short-term general hospital (02) ==
PROVIDERS: Emergency Provider Student in an Organized Health Care Education/Training Program; PCP Family Medicine
DX: G40.89 Other seizures (principal); G93.9 Disorder of brain, unspecified; G81.94 Hemiplegia, unspecified affecting left nondominant side; Z92.3 Personal history of irradiation
CPT/HCPCS: 36415; 80053; 96365; 96375; 99291; 70450; 85025; J1100; J1953

== ENCOUNTER 2018-12-09 01:42 | Outpatient (CLI) | payer MEDICARE, SELFPAY ==
--- NOTE | 2018-12-09 14:47 | DI.NM_ITS ---
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 Whole body images and spot views of the ribs were performed. There is increased activity in the left anterior mid ribs in the same location consistent with posttraumatic rib fractures. The remainder of the skeletal labelling appears normal. IMPRESSION: Rib activity in the left mid anterior ribs consistent with posttraumatic fractures. No evidence of metastatic disease.
== END 2018-12-09 02:02 ==
PROVIDERS: PCP Family Medicine; Visit Provider Internal Medicine Medical Oncology
DX: C50.912 Malignant neoplasm of unspecified site of left female breast (principal); Z17.0 Estrogen receptor positive status [ER+]; C50.919 Malignant neoplasm of unspecified site of unspecified female breast; R07.81 Pleurodynia; S22.42XD Multiple fractures of ribs, left side, subsequent encounter for fracture with routine healing
CPT/HCPCS: 78306

== ENCOUNTER 2018-12-16 12:37 | Outpatient (CLI) | payer MEDICARE, SELFPAY ==
[2018-12-16 13:18] LABS: Abs Immature Grans 0.04 k/cumm (0.0-0.09); Absolute Basophil Count 0.02 k/cumm (0.0-0.2); Absolute Eosinophil Count 0.15 k/cumm (0.0-0.7); Absolute Lymphocyte Count 1.09 k/cumm (1.2-3.4); Absolute Monocyte Count 0.81 k/cumm (0.11-0.7); Absolute Neutrophil Count 6.46 k/cumm (1.2-6.7); Basophils % 0.2; Eosinophils % 1.8; HCT 38.7 % (36.0-46.0); HGB 12.8 g/dL (12.0-15.5); Immature Grans % 0.5; Lymphocytes % 12.7; Mean Corp. HGB Concentration 33.1 g/dL (32.0-36.0); Mean Corpuscular Hemoglobin 31.8 pg (27.0-33.0); Mean Corpuscular Volume 96.3 fL (80-95); Mean Platelet Volume 10.1 fL (8.0-11.0); Monocytes % 9.5; Neutrophils % 75.3; Platelet Count 224 x1000/uL (130-400); RBC 4.02 m/cumm (4.00-5.20); RBC Distribution Width 15.4 % (11.7-14.6); White Blood Cell Count 8.57 k/cumm (4.4-10.8)
[2018-12-16 13:31] LABS: Bilirubin Negative (Negative); Blood Negative (Negative); Clarity Sl Cloudy (Clear); Glucose Negative (Negative); Ketones Negative (Negative); Leukocyte Esterase Small (Negative); Nitrite Negative (Negative); Urobilinogen 0.2 EU/dL (Up TO 0.2)
[2018-12-16 13:40] LABS: ALT 46 U/L (12-78); AST 15 U/L (15-37); Albumin 3.5 g/dL (3.4-5.0); Alkaline Phosphatase 108 U/L (46-116); Anion Gap 10.5 mmol/L (3-11); BUN 18 mg/dL (7-18); Bilirubin, Total 0.3 mg/dL (0.2-1.0); CO2 27.5 mmol/L (21.0-32.0); CREATININE 0.58 mg/dL (0.55-1.02); Calcium 9.4 mg/dL (8.5-10.1); Chloride 105 mmol/L (98-107); Glucose 109 mg/dL (70-100); Potassium 3.6 mmol/L (3.5-5.1); Sodium 143 mmol/L (136-145); TSH 1.44 uIU/mL (0.358-3.74)
[2018-12-16 13:41] LABS: Bacteria Moderate HPF (Negative); Crystals Negative HPF (Negative); Epithelial Cells Many HPF (Negative); Mucus Moderate (Negative); RBC Negative (0-2)
[2018-12-16 13:42] LABS: C & S Indicated? No/Sq. Contamination
[2018-12-19 19:27] LABS: Cancer Ag 15-3 22 U/mL (<30)
== END 2018-12-16 12:57 ==
PROVIDERS: PCP Family Medicine; Visit Provider Internal Medicine Hematology & Oncology
DX: C50.919 Malignant neoplasm of unspecified site of unspecified female breast (principal); C79.31 Secondary malignant neoplasm of brain; R39.15 Urgency of urination; R53.83 Other fatigue
CPT/HCPCS: 36415; 80053; 86304; 81003; 81015; 84443; 85025; 86300

== ENCOUNTER 2018-12-20 14:17 | Observation (INO) | payer MEDICARE, SELFPAY ==
[2018-12-20] VITALS (143 sets, daily range): BP systolic 85–145; BP diastolic 55–92; PULSE 74–101; RESP 13–31; TEMP 36.9–37.4; O2SAT 93–98
--- NOTE | 2018-12-20 14:25 | DI.CT_ITS ---
SYMPTOMS/DIAGNOSIS: SEIZURE, BRAIN MASS CT BRAIN: Noncontrast. Comparison 10/07/18 and 11/09/18. There is again seen a mass in the right parietal lobe. It does appear to be unchanged in size. It appears isodense to the surrounding parenchyma. The previously noted hemorrhage in the right parietal lobe has resolved. No new intraparenchymal hemorrhage is seen. There is again seen edema in the surrounding white matter. The ventricles are intact. The basilar cisterns are patent. No significant midline shift is appreciated. The visualized paranasal sinuses are clear. The mastoid air cells are well pneumatized. The calvarium is intact. IMPRESSION: No acute intracranial hemorrhage or change in appearance of the right parietal lobe. The findings were discussed with Dr. Nicholson of the emergency department on the date of the examination.
--- NOTE | 2018-12-20 14:26 | W.ED.GENAD ---
Discharge Plan Disposition Patient Disposition: [facility] INPATIENT Condition: Improving Discharge Details Clinical Impression: Focal seizure Admit Date/Time: 12/20/18 18:41 Admit Provider: Quentin Sánchez Attending Provider: Quentin Sánchez Primary Care Provider: Eulogio Eaton ED Provider: Erick Nicholson Hospital Course Hospital Course: Ms. 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 She presented to the ED after having seizures at home. She has a remote history of breast cancer and in October 2018 was found to have a metastatic right frontal brain mass manifested by left arm weakness. She was treated with a single dose of radiation directed at the tumor in early November. She subsequently developed a small cerebral hemorrhage around the tumor with increased seizure activity manifested by focal aware motor seizures involving the left arm and leg. She was hospitalized at [facility] at that time in which Dilantin 100 mg 3 times daily was added in addition to Keppra 500 mg twice daily which she was already on. She was on a dexamethasone taper (down to 2mg BID at time of admission) and was doing well until the day of her admission when she had 3 breakthrough seizures. In the emergency department, she had a CT head which showed no change in the mass, no hemorrhage and no acute changes. Her labs were notable for a subtherapeutic phenytoin level. Her case was discussed with neurology at [facility] who recommended admission to the hospital and that she be given a loading dose of phenytoin as well as an additional dose in the evening of 300 mg each and rechecking her levels. She was admitted to the [facility] floor for further observation and management. Neurology was consulted. Dr. George was able to review her oncology records and notes that it was recommended that she come off Dilantin due to its interaction with her chemotherapy. The Dilantin was stopped based on this recommendation. Her Keppra was increased to 1000 mg twice daily, she received an additional 1000 mg IV Keppra loading dose yesterday. Her dexamethasone dose was increased to 4 mg twice daily as well. She had no further seizure activity while she was observed here at the hospital. She was monitored on telemetry and found to be in normal sinus rhythm with rates in the 60s. She was previously scheduled for an MRI brain for next month, Dr. George did not see any benefit in doing the MRI early as she did not feel that it would change medical management. Dr. George spoke with Sai and her and discussed that she may need further titration and changes to her seizure medications to achieve freedom from seizures, she made a plan with them in the event that she has further seizures at home and when it will be important for them to return to the emergency room. Dr. George gave them her card with her phone number so they can contact her as discussed. She is scheduled to follow-up with Dr. George in the neurology clinic as an outpatient. Given that her Decadron dose was increased, she may need titration of her basal insulin regimen. She will continue to monitor her blood glucose at home. She has had home health. Home health will resume services including Nursing and PT. She will follow up with oncology as scheduled. She will follow-up with her primary care provider as scheduled. She will follow-up with neurology as scheduled. Discharge Instructions Instructions: Epilepsy (DC) Additional Instructions: Your dexamethasone dose has been increased to 4 mg twice daily. Your Keppra dose has been increased to 1000 mg twice daily. Your Dilantin has been discontinued. You are scheduled for an updated MRI brain next month. Follow-up with neurology as scheduled. Follow-up with your primary care provider as scheduled. Follow-up with oncology as scheduled. Follow Dr. George's recommendations on when to call her versus when to go to the ED for seizures. She has given you her card with her contact information. Take Care! Forms: Nursing Discharge Form Referrals: Eulogio Eaton [Primary Care Provider] - 12/30/18 2:00 pm Arabella George MD [ [facility] STAFF PHYSICIAN] - 01/11/19 12:15 pm Discharge Data Discharge Date/Time-TO BE ENTERED AT DEPARTURE: 12/20/18 19:45 Medical Decision Making 1433: 68-year-old female with history of brain cancer status post radiation with associated seizure disorder, compliant with antiepileptics here after tonic-clonic seizure. Patient is now mentating well with no neurologic deficit from baseline -patient has chronic left upper extremity weakness. Screening ECG was reviewed and interpreted by me: Sinus rhythm 98 bpm, left axis deviation, poor R wave progression, no STEMI, nondiagnostic. Plan is to obtain CT of the head and then I will consult with [facility] specialist. 171 --CT head interpreted by radiology: No change in mass, no hemorrhage, no acute changes Labs reviewed and notable for subtherapeutic phenytoin level. Patient had another episode of focal seizure involving her left arm. I called [facility] and requested consultation with neurology. 1906 --spoke with Dr. Mo, neurology at [facility], I discussed ED presentation and course and reviewed prior history, he recommended admission to [facility] and loading with phenytoin 300 mg orally now and another 300 mg orally tonight and rechecking levels. Hospitalist paged. --Patient due for nighttime dose of Keppra. I will give Keppra 500 mg. 18:23 --I spoke with Dr. Sánchez who will admit the patient. Care transition to Dr. Sánchez. HPI General Mode of arrival: ambulatory. Date/Time Provider Initiated Documentation: 12/20/18 14:25. Limitations to Documentation: no limitations. Information obtained by: patient and family. HPI Narrative: 68-year-old female with history of right-sided brain cancer status post radiation treatment, associated seizure disorder, taking Keppra and phenytoin as prescribed, here after tonic-clonic seizure that lasted approximately 4 minutes and then resolved. Patient was awake during the seizure activity. Patient denies headache. She has had increased fatigue and has been wobbly on her feet for the past few days. Patient has weakness of her left arm that is unchanged. No numbness. Patient notes intermittent difficulty with vision specifically left visual field. No visual changes at this time peer Related Data Home Medications Medication Instructions Recorded Confirmed Januvia 100 mg PO DAILY 09/17/18 12/20/18 atorvastatin 80 mg PO QPM 10/07/18 12/20/18 Caltrate 600-D Plus Minerals 1 tab PO DAILY 12/20/18 12/20/18 Lantus U-100 Insulin 20 unit SUBCUT DAILY 12/20/18 12/20/18 famotidine 20 mg PO BID 12/20/18 12/20/18 furosemide 20 mg PO DAILY PRN 12/20/18 12/20/18 nitroglycerin 0.4 mg SUBLINGUAL Q5-15M PRN 12/20/18 12/20/18 nystatin 1 applic TOPICAL BID 12/20/18 12/20/18 dexamethasone 4 mg PO BID #60 tab 12/22/18 levetiracetam [Keppra] 1,000 mg PO BID #60 tab 12/22/18 Previous Rx's Medication Instructions Recorded dexamethasone 4 mg PO BID #60 tab 12/22/18 levetiracetam [Keppra] 1,000 mg PO BID #60 tab 12/22/18 Allergies Allergy/AdvReac Type Severity Reaction Status Date / Time nickel Allergy Unverified 12/20/18 14:28 Sulfa (Sulfonamide Allergy Unverified 12/20/18 14:28 Antibiotics) codeine [Codeine] AdvReac Nausea Unverified 12/20/18 14:28 General Stated Complaint: GenMedical KATHERINE: 3 Review of Systems Constitutional Denies fever(s) Neurologic Reports as per HPI Hematologic/Lymphatic Reports other (swelling of right leg>left (had US at [facility] last week neg)) [facility] Medical History (Updated 12/24/18 @ 09:17 by Zaida Stanley MD) Ataxia (Acute) Breast cancer (Chronic) Breast cancer metastasized to bone (Acute) Breast cancer metastasized to brain (Acute) Counseling regarding advance directives and goals of care (Acute) Ex-smoker (Acute) Focal motor epilepsy (Acute) Heart disease (Acute) Hyperlipidemia (Acute) Hypertension (Chronic) IDDM (insulin dependent diabetes mellitus) (Chronic) Metastatic cancer to brain (Acute) Osteopenia (Acute) Palliative care patient (Acute) Seizure (Acute) Surgical History (Updated 12/24/18 @ 08:59 by Zaida Stanley MD) H/O partial mastectomy (Acute) Family History (Updated 12/24/18 @ 09:02 by Zaida Stanley MD) Sister Epilepsy Son No problems noted. Daughter No problems noted. Mother Breast cancer Father Lung cancer Prostate cancer Social History (Updated 12/24/18 @ 09:05 by Zaida Stanley MD) Smoking/Tobacco Use Status: Former Tobacco Use Alcohol Intake: never Drug use: Never Substance use type: does not use Caregiver/Support person: Yes Household members: spouse Housing: house Number of Children: 2 number of grandchildren: 7 Communication Needs: Corrective Lenses Education Level: high school Do you need help understanding health information?: Always current occupation: was working for [employer] in [employer] when diagnosed; out on disability Pets and animals: Yes What is your relationship status?: How often do you talk on the phone with friends or family?: three or more times per week How often do you get together with friends or relatives?: three or more times per week Panel score (0-1 are the most socially isolated patients): 2 What type of physical activity do you participate in: walking and sedentary lifestyle Duration: < 15 minutes/day Frequency: 5-6 times per week Special damien needs: No Agree to transfusion: Yes Seatbelt use: always Fire extinguisher in home: Yes Do you feel safe at home: Yes Do you feel safe in your relationship?: Yes Additional Social history: to Sharon x 33 years currently living with her daughter in [place] as her house is not handicapped-accessible she fell once down the stairs at her home and worries she will fall again Exam Const General: cooperative and no acute distress HENMT Head: normocephalic and atraumatic Mouth: moist mucous membranes Eyes Conjunctivae: normal conjunctivae Sclera: normal sclerae EOM: EOM intact bilaterally Neck Neck: trachea midline and supple Resp Auscultation: clear to auscultation bilaterally, no rales, no rhonchi and no wheezes Cardio Jugular venous pressure: no JVD Rate: regular rate and not tachycardic Rhythm: regular rhythm GI Palpation: soft, not firm, no guarding, no masses, not rigid and nontender Skin General skin exam: no rashes or lesions noted Neuro General: alert, awake and oriented x3 Cranial Nerves: CN's II-XI intact bilaterally Cognition: normal cognition Speech: speech normal Motor: other (Left upper extremity weakness noted 3/5) Sensory Exam: no sensory deficits noted Extrem General: no edema Right lower extremity: edema (Trace) Details: non-pitting Psych Appearance: grossly normal Mental Status: mental status grossly normal Speech and Movement: speech and movement normal Course Vital Signs Temperature 37.4 C 12/20/18 14:08 Pulse 101 H 12/20/18 14:08 Respiratory Rate 18 12/20/18 14:08 Blood Pressure 135/77 12/20/18 14:08 Pulse Oximetry 97 12/20/18 14:08 Temperature 37.4 C 12/20/18 14:08 Temperature Source Temporal Artery Scan 12/20/18 14:08 Pulse 101 H 12/20/18 14:08 Respiratory Rate 18 12/20/18 14:08 Respiratory Effort 12/20/18 14:08 Blood Pressure 135/77 12/20/18 14:08 Blood Pressure Position Sitting 12/20/18 14:08 Pulse Oximetry 97 12/20/18 14:08 Oxygen Delivery Method Room Air 12/20/18 14:08 Oxygen Flow Rate 0 12/20/18 14:08
[2018-12-20 14:44] LABS: HCT 38.1 % (36.0-46.0); HGB 12.6 g/dL (12.0-15.5); Mean Corp. HGB Concentration 33.1 g/dL (32.0-36.0); Mean Corpuscular Hemoglobin 31.9 pg (27.0-33.0); Mean Corpuscular Volume 96.5 fL (80-95); Mean Platelet Volume 10.2 fL (8.0-11.0); Platelet Count 198 x1000/uL (130-400); RBC 3.95 m/cumm (4.00-5.20); RBC Distribution Width 15.1 % (11.7-14.6)
[2018-12-20 14:55] LABS: ALT 45 U/L (12-78); AST 18 U/L (15-37); Albumin 3.2 g/dL (3.4-5.0); Alkaline Phosphatase 106 U/L (46-116); Anion Gap 9.1 mmol/L (3-11); BUN 19 mg/dL (7-18); Bilirubin, Total 0.3 mg/dL (0.2-1.0); CO2 28.9 mmol/L (21.0-32.0); CREATININE 0.85 mg/dL (0.55-1.02); Calcium 8.9 mg/dL (8.5-10.1); Chloride 105 mmol/L (98-107); Glucose 107 mg/dL (70-100); Potassium 3.4 mmol/L (3.5-5.1); Sodium 143 mmol/L (136-145); Total Protein 6.5 g/dL (6.4-8.2)
[2018-12-20 14:59] LABS: PHENYTOIN (DILANTIN) 7.9 ug/mL (10.0-20.0)
--- NOTE | 2018-12-20 17:08 | NUR.NOTE ---
Pt had left sided SX SX lasted 1-2 minutes. Pt was given an Icepack to hold in left hand SX stopped immediately. Nursing Note:
--- NOTE | 2018-12-20 17:13 | NUR.NOTE ---
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 left hand or freely move left arm. Pt stated that she couldn't feel the ice that was lying on her left arm MD notified Nursing Note:
[2018-12-20] MEDS: Nystatin POWDER 60 GM JAR (17:32)
--- NOTE | 2018-12-20 18:31 | W.PM.HP.N ---
Date of service: 12/20/18 Time of Service: 18:31 Assessment and Plan (1) Seizure: Current visit: Yes Status: Acute Seizures in setting of known disorder, probably precipitant subtherapeutic Dilantin level; or at any rate no other factors seen. I will double check with Pharmacy regarding recommended dose of additional Dilantin. History of Present Illness Chief Complaint: seizure Narrative: 68 femalww with h/o seizure disorder secondary to right parietal tumor. Reports several episodees of focal seizure today involving LUE, known focus. In ER CT head unchanged, w/u of note for Dilantin of 7.9. ER consulted Neuro who advised two additional doses of 300 mg Dilantin (has received first). Admitted for monitoring of effecct. Review of Systems Review of Systems All systems reviewed & are unremarkable except as noted in HPI and below PFSH Social History Smoking/Tobacco Use Status: Never Alcohol Intake: never Drug use: Never Substance use type: does not use Do you feel safe at home: Yes Do you feel safe in your relationship?: Yes Meds Home Medications Medication Instructions Recorded Confirmed Type sitagliptin [Januvia] 100 mg PO DAILY 09/17/18 12/20/18 History atorvastatin 80 mg PO QPM 10/07/18 12/20/18 History [id number] 1 tab PO DAILY 12/20/18 12/20/18 History [Caltrate 600-D Plus Minerals] dexamethasone [Decadron] 4 mg PO DIRECTED 12/20/18 12/20/18 History famotidine 20 mg PO BID 12/20/18 12/20/18 History furosemide 20 mg PO DAILY PRN 12/20/18 12/20/18 History insulin glargine [Lantus U-100 20 unit SUBCUT DAILY 12/20/18 12/20/18 History Insulin] levetiracetam 500 mg PO BID 12/20/18 12/20/18 History nitroglycerin 0.4 mg SUBLINGUAL Q5-15M PRN 12/20/18 12/20/18 History nystatin 1 applic TOPICAL BID 12/20/18 12/20/18 History phenytoin sodium extended 100 mg PO TID 12/20/18 12/20/18 History [Dilantin Extended] Allergies Allergy/AdvReac Type Severity Reaction Status Date / Time nickel Allergy Unverified 12/20/18 14:28 Sulfa (Sulfonamide Allergy Unverified 12/20/18 14:28 Antibiotics) codeine [Codeine] AdvReac Nausea Unverified 12/20/18 14:28 Exam Narrative Exam Narrative: 112/59, 95, 36.4, 19; HEENT atraumatic; neck supple; lungs clear; heart RRR; abdomen soft, NT; extr no edema; neuro Ox3, 2/5 LUE Results Labs : 12/20/18 14:10 12/20/18 14:10 Laboratory Results - last 24 hr 12/20/18 12/20/18 12/20/18 14:10 14:10 14:10 WBC 6.80 RBC 3.95 L Hgb 12.6 Hct 38.1 MCV 96.5 H MCH 31.9 MCHC 33.1 RDW 15.1 H Plt Count 198 MPV 10.2 Sodium 143 Potassium 3.4 L Chloride 105 Carbon Dioxide 28.9 Anion Gap 9.1 BUN 19 H Creatinine 0.85 Estimated GFR/1.73 m2 >= 60.00 Glucose 107 H Calcium 8.9 Total Bilirubin 0.3 AST 18 ALT 45 Alkaline Phosphatase 106 Total Protein 6.5 Albumin 3.2 L Phenytoin 7.9 L Last Vital Signs Temp 37.4 C 12/20/18 14:08 Pulse 95 H 12/20/18 17:16 Resp 19 12/20/18 17:20 BP 112/59 L 12/20/18 17:16 Pulse Ox 95 12/20/18 17:20
[2018-12-20] MEDS: levETIRAcetam 250 MG TAB 500 MG PO (19:23)
[2018-12-20] MEDS: Dexamethasone 4 MG TAB 2 MG PO (21:00)
[2018-12-20] MEDS: Famotidine 20 MG TAB PO (21:00)
[2018-12-20 22:25] LABS: PHENYTOIN (DILANTIN) 10.8 ug/mL (10.0-20.0)
[2018-12-21] VITALS (7 sets, daily range): BP systolic 108–126; BP diastolic 71–77; PULSE 71–95; RESP 18–20; TEMP 36.5–37.2; O2SAT 95–96
[2018-12-21] MEDS: SITagliptin 100 MG TAB PO (08:27)
[2018-12-21] MEDS: Calcium 600mg/Vit D 200U TAB 1 TAB PO (08:27)
[2018-12-21] MEDS: Famotidine 20 MG TAB PO ×2 (08:27→20:43)
[2018-12-21] MEDS: levETIRAcetam 500 MG TAB PO (08:28)
[2018-12-21] MEDS: Dexamethasone 4 MG TAB 2 MG PO (08:28)
[2018-12-21] MEDS: Insulin Glargine 300 UNITS/3 ML PEN 32 UNITS SC (08:34)
[2018-12-21 11:49] LABS: Abs Immature Grans 0.04 k/cumm (0.0-0.09); Absolute Basophil Count 0.02 k/cumm (0.0-0.2); Absolute Eosinophil Count 0.14 k/cumm (0.0-0.7); Absolute Lymphocyte Count 1.15 k/cumm (1.2-3.4); Absolute Neutrophil Count 4.61 k/cumm (1.2-6.7); Basophils % 0.3; Eosinophils % 2.1; HCT 35.4 % (36.0-46.0); HGB 11.7 g/dL (12.0-15.5); Immature Grans % 0.6; Lymphocytes % 17.3; Mean Corp. HGB Concentration 33.1 g/dL (32.0-36.0); Mean Corpuscular Volume 96.7 fL (80-95); Mean Platelet Volume 10.2 fL (8.0-11.0); Monocytes % 10.5; Neutrophils % 69.2; Platelet Count 183 x1000/uL (130-400); RBC 3.66 m/cumm (4.00-5.20); RBC Distribution Width 15.5 % (11.7-14.6); White Blood Cell Count 6.66 k/cumm (4.4-10.8)
[2018-12-21 12:00] LABS: Anion Gap 9.7 mmol/L (3-11); BUN 15 mg/dL (7-18); CO2 28.3 mmol/L (21.0-32.0); CREATININE 0.49 mg/dL (0.55-1.02); Calcium 9.2 mg/dL (8.5-10.1); Chloride 106 mmol/L (98-107); Glucose 128 mg/dL (70-100); Magnesium 1.9 mg/dL (1.8-2.4); Potassium 3.8 mmol/L (3.5-5.1); Sodium 144 mmol/L (136-145)
--- NOTE | 2018-12-21 12:02 | PDOC.CMIN ---
Care Management Initial Assess REASON FOR HOSPITALIZATION:: Seizure PAST MEDICAL HISTORY/PAST SURGICAL HISTORY:: Unable to obtain. Seizure, brain cancer, ?previous breast CA, patient reports tubal ligation. PREVIOUS FUNCTIONAL STATUS/SOCIAL/FAMILY SUPPORTS:: Sai resides in [place] with her daughter, Abigail Covarrubias. Abigail has a one level home. Sai's home in [facility] that she shares with her , Kaur, has the bathroom on the second floor. Kaur drives to [place] each day to be with Sai while Abigail works. He reports he only has to give her one pill at lunchtime but that she isn't a good patient. Kaur and Sai laugh as she reports at baseline being independent and currently struggling with the need to have her family care for her. She reports hoping that she will be able to return to work within a few months. She reports an MRI scheduled this fall should determine next steps. She questions certain information provided by different doctors; encourages Sai to access Dr. Stanley for clarifications regarding oncology and neurology providers. CURRENT FUNCTIONAL STATUS:: Sai is lying in bed, Kaur at her bedside. The couple are fully engaged with this travel writer and forthcoming with information. ADVANCE DIRECTIVES:: Abigail as agent. Sai would like her children and to make decisions together per her AD on file at [facility]. Has patient been provided with information about the portal?: No Did the patient sign up for the portal?: No CODE STATUS:: Full Code INSURANCE COVERAGE / FINANCIAL ISSUES:: Medicare. Financial Asst 100 CURRENT HOME/COMMUNITY SERVICES/EQUIPMENT:: LAYO RN, PT. Oncologist, Neurologist, Radiologist PRIMARY CARE PHYSICIAN:: Eulogio Eaton POTENTIAL DISCHARGE NEEDS:: Palliative Care Consult completed. Follow up appointments. PATIENT/FAMILY EDUCATION NEEDS:: Review of discharge instructions, discuss Ask Me Three. ANTICIPATED BARRIERS TO DISCHARGE:: None identified. TRANSPORTATION:: Via private vehicle with family. PLAN:: Sai will return home when ready per MD. She will follow up with her PCP and outpatient providers including Palliative Care. She will transport home via private vehicle with family.
[2018-12-21 12:07] LABS: Creatine Kinase 37 U/L (26-192)
--- NOTE | 2018-12-21 14:40 | CHAPLAIN ---
Sai is an [employer] employee who works in the [employer]. She tells me today that after having breast cancer 12 years ago, three cancerous lymph nodes were found and she was told that her cancer is back, stage 4. But that's okay. I can beat that, she told me. Sai was talkative and had three family members or friends with her. She said she has enjoyed having coworkers from [employer] come up and visit her.
[2018-12-21] MEDS: Normal Saline Flush 10 ML SYR (15:10)
[2018-12-21] MEDS: levETIRAcetam 1,000 MG in Normal Saline 100 ML 400 MG IVPB (15:11)
--- NOTE | 2018-12-21 15:14 | W.NEUROCONSU ---
Date of service: 12/21/18 Time of Service: 15:14 Assessment and Plan (1) Focal motor epilepsy: Current visit: Yes Status: Acute (2) Metastatic cancer to brain: Current visit: Yes Status: Acute Ms. Garcia is a 68-year-old, right-handed woman with metastatic breast cancer to the brain manifested by left arm weakness who was admitted with increased seizure activity. She is clinically stable at this point. In review of her oncology records, it has been recommended that she come off Dilantin due to its interaction with her chemotherapy. Therefore, we will stop Dilantin. We will increase Keppra to 1000 mg twice daily with an additional 1000 mg IV Keppra load now. I also recommend increasing dexamethasone to 4 mg twice daily. She is scheduled for an updated MRI brain next month. I do not think that we need to perform one at this time as it would not change medical management. I discussed this plan with Ms. Garcia and her extensively. We discussed that she may need further titration and changes to her seizure medications to achieve seizure freedom and in some cases, seizure freedom is not obtainable even with numerous medications. We discussed what to do in the event of further seizures and when it would be important to return to the emergency room. I have given her my card so that she can contact me for further seizure activity and guidance. If she remains stable overnight and seizure-free, she can be discharged home. She will continue to not drive at this time. She should follow-up in the neurology clinic in the next 4 to 6 weeks. DISCLAIMER: This note was created using [employer] voice recognition software. History of Present Illness Chief Complaint: seizure Narrative: Handedness: right. HPI: Ms. Garcia is a 68-year-old woman with a past medical history of hypertension, hyperlipidemia, type 2 diabetes, coronary artery disease, and osteopenia. She has a remote history of breast cancer and in October 2018 was found to have a metastatic right frontal brain mass manifested by left arm weakness. She was treated with a single dose of radiation directed at the tumor in early November. She subsequently developed a small cerebral hemorrhage around the tumor with increased seizure activity manifested by focal aware motor seizures involving the left arm and leg. She was hospitalized at [facility] at that time in which Dilantin 100 mg 3 times daily was added in addition to Keppra 500 mg twice daily which she was already on. Since then she was doing quite well and began a dexamethasone taper (she was on 2mg BID at time of admission), until yesterday 12/20/2018 on which she had 3 breakthrough seizures all manifested by motor activity involving the left hemibody without loss of consciousness or awareness. Her Dilantin level was 7.9. She was given a loading dose of 300 mg of fosphenytoin in the ER yesterday. She has not had any further seizure activity overnight or today. She consulted with her neuro-oncologist, Dr. Joe on 12/16/2018 who discussed initiation of chemotherapy which would include abemaciclib which has an interaction with Dilantin and renders it less effective. She had a CT head in the emergency room which I was able to review and shows significant right frontal encephalomalacia without midline shift. In comparison to her CT from 11/09/2018, the previously seen right frontal hemorrhage has resolved. She had an EEG at [facility] on 11/10/2018 which showed subtle right greater than left parasagittal slowing without any epileptiform activity. She does not drive. Though she does not lose awareness, the motor activity is strong enough to impair driving. Consults Requesting physician: Silvina Suarez Review of Systems Review of Systems All systems reviewed & are unremarkable except as noted in HPI and below PFSH Medical History Breast cancer (Chronic) Focal motor epilepsy (Acute) Heart disease (Acute) Hyperlipidemia (Acute) Hypertension (Chronic) IDDM (insulin dependent diabetes mellitus) (Chronic) Metastatic cancer to brain (Acute) Osteopenia (Acute) Seizure (Acute) Social History Smoking/Tobacco Use Status: Never Alcohol Intake: never Drug use: Never Substance use type: does not use Do you feel safe at home: Yes Do you feel safe in your relationship?: Yes Visit Medication and Allergies Active Medications Generic Name Dose Route Start Last Admin Trade Name Freq PRN Reason Stop Dose Admin Acetaminophen 650 mg 12/20/18 18:46 Tylenol PO Q4H PRN PRN Atorvastatin Calcium 80 mg 12/21/18 20:00 Lipitor PO QPM SELWYN Calcium/Vitamin D 1 tab 12/21/18 08:30 12/21/18 08:27 Caltrate-600 W/ Vitamin D 200units PO 1 tab DAILY SELWYN Administration Dexamethasone 4 mg 12/21/18 20:00 Decadron PO BID SELWYN Dextrose 0 gm 12/20/18 18:42 Insta-Glucose PO DIRECTED PRN Dextrose/Water 0 gm 12/20/18 18:42 IVP DIRECTED PRN Dimethicone/Zinc Oxide 0 gm 12/20/18 18:41 Solomon Protect Cream TP PRN PRN Famotidine 20 mg 12/20/18 20:00 12/21/18 08:27 Pepcid PO 20 mg BID SELWYN Administration Insulin Aspart 0 units 12/21/18 11:30 12/21/18 12:00 Novolog Flexpen SC Not Given AC & HS [facility] Protocol Insulin Glargine 32 units 12/21/18 08:30 12/21/18 08:34 Lantus Solostar SC 32 units DAILY SELWYN Administration Levetiracetam 1,000 mg 12/21/18 20:00 Keppra PO BID SELWYN Lorazepam 0.5 mg 12/20/18 18:46 Ativan PO HS PRN PRN Nitroglycerin 0.4 mg 12/20/18 20:01 Nitrostat SL Q5 MIN PRN X3 PRN Nystatin Confirm 12/20/18 16:49 12/20/18 17:32 Mycostatin Powder Administered 60 mg Dose Administration 60 gm .ROUTE .DM PRN Allergies nickel Allergy (Unverified 12/20/18 14:28) Sulfa (Sulfonamide Antibiotics) Allergy (Unverified 12/20/18 14:28) codeine [Codeine] Adverse Reaction (Unverified 12/20/18 14:28) Nausea Exam Narrative Exam Narrative: Physical Exam: Gen: Patient of apparent stated age, NAD Head and face: no facial or cranial abnormalities Neck: Supple, no meningismus, no occipital tenderness CV: + S1, S2, RRR, no murmur Resp: CTA B/L Abd: soft, nontender, nondistended Ext: No edema. No clubbing or cyanosis. No bony deformity. Neuro Exam: Language: fluency, naming, repetition, and comprehension intact; Mental Status: AAOx3, current events intact, fund of knowledge intact; Speech: no dysarthria Cranial nerves: Funduscopy: not performed CN II: visual an intact CN III, IV, : extraocular movements intact, no nystagmus, pupils symmetric and reactive to light CN V: face sensation intact to LT and PP CN VII: mild left nasolabial fold flattening CN VIII: hearing intact bilaterally CN IX, X: palate rises symmetrically CN XI: trapezius/SCM 5/5 bilaterally CN XII: protrudes tongue symmetrically Sensory: intact to LT and PP in all extremities Motor: bulk and tone intact. Fine motor movements intact on the right with no pronator drift. Strength 5/5 throughout in the RUE and bilateral LE. 4-/5 weakness throughout the LUE. Reflexes: 2+ at the biceps, triceps, and brachioradialis; reduced at the patella and achilles tendons bilaterally; toes down going on the right and neutral on the left; Coordination: FTN intact on the right; Gait: deferred Results Last Vital Signs Temp 36.6 C 12/21/18 11:45 Pulse 71 12/21/18 11:45 Resp 18 12/21/18 11:45 BP 108/71 12/21/18 11:45 Pulse Ox 95 12/21/18 11:45 Labs : 12/21/18 11:00 12/21/18 11:00 Laboratory Results - last 24 hr 12/20/18 12/21/18 12/21/18 21:13 11:00 11:00 WBC RBC Hgb Hct MCV MCH MCHC RDW Plt Count MPV Immature Gran % Neutrophils % Lymphocytes % Monocytes % Eosinophils % Basophils % Absolute Neutrophils Absolute Lymphocytes Absolute Monocytes Absolute Eosinophils Absolute Basophils Sodium 144 Potassium 3.8 Chloride 106 Carbon Dioxide 28.3 Anion Gap 9.7 BUN 15 Creatinine 0.49 L D Estimated GFR/1.73 m2 >= 60.00 Glucose 128 H Calcium 9.2 Magnesium 1.9 Creatine Kinase 37 Phenytoin 10.8 12/21/18 11:00 WBC 6.66 RBC 3.66 L Hgb 11.7 L Hct 35.4 L MCV 96.7 H MCH 32.0 MCHC 33.1 RDW 15.5 H Plt Count 183 MPV 10.2 Immature Gran % 0.6 Neutrophils % 69.2 Lymphocytes % 17.3 Monocytes % 10.5 Eosinophils % 2.1 Basophils % 0.3 Absolute Neutrophils 4.61 Absolute Lymphocytes 1.15 L Absolute Monocytes 0.70 Absolute Eosinophils 0.14 Absolute Basophils 0.02 Sodium Potassium Chloride Carbon Dioxide Anion Gap BUN Creatinine Estimated GFR/1.73 m2 Glucose Calcium Magnesium Creatine Kinase Phenytoin
[2018-12-21] MEDS: Insulin Aspart 300 UNITS/3 ML PEN SC ×2 (17:10→22:10)
--- NOTE | 2018-12-21 18:00 | PT.INIE ---
Date of service: 12/21/18 Time of Service: 13:13 PT Notes Inpatient Physical Therapy Evaluation Date: 12/21/2018 Referring Doctor: Silvina Suarez MD PT Orders: PT CONSULT: Eval/treat Precautions: Fall. Standard. Seizure prone. Patient Profile/Admitting Diagnosis: Patient is a 68-year-old female with past medical history significant for right parietal tumor status post radiation x1 with associated seizure disorder in November 2018. She presented to the ED on 12/20/2018 with tonic-clonic seizure lasting for minutes and had been preceded with 2 other episodes prior to admission with suspected precipitant subtherapeutic Dilantin level as CT scan of the brain revealed no change in mass, no hemorrhage, and no acute abnormality. Referral was made to address impairments in strength, activity tolerance, and mobility level. PMHX: Medical history Breast Cancer Hypertension High cholesterol [place] Borderline diabetes Surgical history Cholecystectomy Mastectomy Stent in 2005 Social History/Home Situation: Sai has two places of residences, one in [facility] and the other [place]. She mainly resides in [place], [place] at her daughter's Abigail's house. Abigail has a one level home with three steps to enter with rails on both sides. Sai's second home is in [facility] and she shares it with her Shraon. Their bathroom is on the second floor. Recently, Sharon states that he drives to [place] daily to help take care of Sai while Abigail works. Patient is hoping that she can come back to work eventually once she is safe to do so. 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 Current Functional Limitations: need for assistive device and assistance for all transfer and ambulation tasks due to post-ictal weakness and complications from parietal tumor Equipment Owned/DME: None Subjective: Patient is agreeable to a PT consult and treatment today. She strongly states that whatever she does she wants to make sure she has a cold pack in her left hand as she stresses that holding something cold consistently prevents a seizure attack. Patient states that she does feel her left upper extremity goes stiff and or her left thumb prior to episode of seizure Objective: General Observation: Patient is seen resting in bed. present throughout PT session. Mental Status: Alert and oriented x4 Pain: 0/10 ROM: Right Upper Extremity: Shoulder Flexion WFL. Shoulder abduction WFL. Elbow flexion WFL. Wrist flexion WFL. Functional opening and closing of hand WFL. Left Upper Extremity: L UE flaccid monoplegia with very minimal digital flexion extension allowable but remains to have a very weak non functional grasp. Right Lower Extremity: Hip flexion WFL. Hip abduction WFL. Knee flexion WFL. Ankle dorsiflexion WFL. Ankle plantarflexion WFL. Left Lower Extremity: Hip flexion WFL. Hip abduction WFL. Knee flexion WFL. Ankle dorsiflexion WFL. Ankle plantarflexion WFL. Strength: Right Upper Extremity: Shoulder flexors 5/5. Shoulder abductors 5/5. Elbow flexors 5/5. Elbow extensors 5/5. Applications Specialist strong. Left Upper Extremity: Shoulder flexors 0/5. Shoulder abductors 0/5. Elbow flexors 0/5. Elbow extensors 0/5. Applications Specialist weak and non-functional. Right Lower Extremity: Hip flexors 4/5. Hip abductors 4/5. Knee flexors 4/5. Knee extensors 4/5. Ankle dorsiflexors 4/5. Ankle plantarflexors 4/5. Left Lower Extremity:Hip flexors 4/5. Hip abductors 4/5. Knee flexors 4/5. Knee extensors 4/5. Ankle dorsiflexors 4/5. Ankle plantarflexors 4/5. Sensation: Intact as to pain and pressure on bilateral lower extremities and R UE. Bed Mobility/Transfers: Rolling CGA Supine to sit CGA with HOB 30 degrees Sit to supine CGA with HOB 30 degrees Sit to stand CGA Stand to sit CGA Bed to chair CGA Chair to bed CGA Gait: Patient was able to tolerate 30 feet +50 feet of level surface ambulation using initially a hemiwalker and then for the last 2 trials a straight cane requiring only CGA from PT and wheelchair follow by RN. No swelling on the left. Decreased gait velocity. No report of headache but did complain of a prodromal sensation of her left thumb acting up towards the end of the walking activity which necessitated immediate rest from walking. No other prodromal nor aural symptoms reported and observed towards latter part of today's session. Balance: Static Sitting: Good Dynamic Sitting: Good Static Standing: Fair Dynamic Standing: Fair Special Tests: Mobility Limitations Standardized Measure [facility] AM-PAC 6 clicks Basic Mobility Inpatient Short Form: Raw Score: 18 CMS Score: 47% deficit Informed Consent/Education: Patient instructed in purpose of PT consult and plan of care. Assessment: Patient is a 68-year-old female with R-sided parietal tumor S/P radiation x 1 with 3 bouts of seizure on 12/20/2018. Patient presents with clinical signs and symptoms consistent with current/admitting diagnoses that have resulted to mobility limitations, gait instability, generalized weakness, and impairment of motor control as demonstrated by the following impairment level findings: 1. Decreased strength to B LE major muscle groups 2. Absent strength on L shoulder, elbow, and wrist muscle groups. 3. Impaired sitting/standing balance 4. Impaired activity tolerance Impairments are contributing to the following functional limitations: 1. Dependent bed mobility skills 2. Increased dependence with transfers 3. Inability to safely ambulate without assistive device and physical assistance 4. Increase completion time for mobility ADL performance 5. Increased fall risk 6. Inability to negotiate steps alone safely Patient is assessed as a 32688 moderate complexity based on the following: History: Patient is a 68-year-old female with R-sided parietal tumor S/P radiation x 1 with 3 bouts of seizure on 12/20/2018 Examination: Demonstrable impairment in strength, balance, and range of motion with underlying impairments and functional limitations as documented above Presentation:Evolving Decision Makin moderate complexity Goals: Goals X1 week 1. Supine-Sit independent 2. Sit-Supine independent 3. Sit-Stand independent 4. Stand-Sit independent 5. Bed-Chair independent 6. Chair-Bed independent 7. Independent gait on level surface with use of least restrictive device for at least 100 feet without report of pain nor dyspnea 8. Independent stair negotiation while holding onto bilateral rails for at least 3 Steps without report of pain nor dyspnea 9. Independent with home exercise program 10. Good static and dynamic standing balance/tolerance Plan of Care/Treatment Plan: 1-2x/day, 7 days/week x 1 week. Plan of care has been reviewed with the NUCLEAR CARDIOLOGY TECHNOLOGIST providing the service under Physical Therapy direction. Initiate Physical Therapy intervention for strengthening, bed mobility, transfers, gait, stairs, balance training, use of assistive device. DISCHARGE RECOMMENDATIONS: Patient will benefit from home health PT services in order to progress mobility level using least restrictive assistive ambulatory device/using no device, assess home safety, identify additional equipment needs, and establish a functional maintenance program that will increase ability of patient to remain at home. TREATMENT CODE/TIME: 97890 x 30 minutes, 50027 x 17 minutes beginning at 1:13 PM. Thank you very much for this referral. Brittney Silvestre PT, DPT, CLT [facility] Referring Doctor: [] PT Orders: PT CONSULT: [] Precautions: [] Patient Profile/Admitting Diagnosis: [] PMHX: [] Social History/Home Situation: [] Current Functional Limitations: [] Equipment Owned/DME: [] Subjective: [] Objective: [] General Observation: [] Mental Status: [] Pain: [] Vital Signs: [] ROM: Right Upper Extremity: [] Left Upper Extremity: [] Right Lower Extremity: [] Left Lower Extremity: [] Strength: Right Upper Extremity: [] Left Upper Extremity: [] Right Lower Extremity: [] Left Lower Extremity: [] Sensation: [] Bed Mobility/Transfers: [] Gait: [] Balance: [] Static Sitting: [] Dynamic Sitting: [] Static Standing: [] Dynamic Standing: [] Special Tests: Mobility Limitations Standardized Measure [facility] AM-PAC 6 clicks Basic Mobility Inpatient Short Form: Raw Score: [] Standardized Score: [] CMS Score: [] CMS Modifier: [] Informed Consent/Education: Patient instructed in purpose of PT consult and plan of care. Assessment: Patient is a [] year old [] referred to physical therapy services with the diagnosis of []. Patient presents with clinical signs and symptoms consistent with [], as demonstrated by the following impairment level findings: []. Impairments are contributing to the following functional limitations: AMPAC score. Patient is assessed as a [] Low 74856 [] Moderate 75761 [] High 05626 complexity based on the following: History: [] Examination: [] Presentation: [] Decision Making: [] Goals: Goals X1 week 1. Supine-Sit [] 2. Sit-Supine [] 3. Sit-Stand [] 4. Stand-Sit [] 5. Bed-Chair [] 6. Chair-Bed [] 7. Gait [] 8. Stairs [] 9. Independent with home exercise program [] 10. Balance [] Plan of Care/Treatment Plan: 1-2x/day, 7 days/week x 1 week. Plan of care has been reviewed with the NUCLEAR CARDIOLOGY TECHNOLOGIST providing the service under Physical Therapy direction. Initiate Physical Therapy intervention for strengthening, bed mobility, transfers, gait, stairs, balance training, use of assistive device. DISCHARGE RECOMMENDATIONS: [] TREATMENT CODE/TIME: []
--- NOTE | 2018-12-21 18:43 | W.PM.PROGNOT ---
Date of Service Date of service: 12/21/18 Time of Service: 18:43 Assessment and Plan (1) Seizure: Current visit: No Status: Acute Due to brain met. Appreciate neurology consult. [place] d/c'ed due to interaction with onc therapy. We increased keppra to 1000 mg PO BID and increased decadron. Monitor on tele tonight. (2) Metastatic cancer to brain: Current visit: No Status: Acute As above (3) Lymphedema of left upper extremity: Current visit: No Status: Acute Follow up as outpatient (4) IDDM (insulin dependent diabetes mellitus): Current visit: No Status: Chronic Continue basal bolus insulin. May require adjustment since decadron dose was doubled. (5) Hyperlipidemia: Current visit: No Status: Acute Continue statin (6) Obesity (BMI 35.0-39.9 without comorbidity): Current visit: No Status: Acute At this point, it is likely not to be a problem in her lifetime and may, in fact, be protective. (7) DVT prophylaxis: Current visit: No Status: Acute Chemical dvt ppx is contraindicated in setting of PRE ASSEMBLY WIRER metastatic disease. TEDs + SCD's (8) Discharge planning issues: Current visit: No Status: Acute Met with palliative care today Remains full code. Planned to be discharged home tomorrow. Subjective Interval history since last seen: Pt states she is tired, but otherwise is comfortable and is feeling pretty good. She shares with me that last night, before she had a seizure her black lab came up to her and licked her face. When she did have the seizure, it licked her hand and made it stop. She can't wait to go home tomorrow. She shares that she loves her job at the [employer]. Denies dizziness, headache, blurred vision, chest pain, shortness of breath, nausea. Exam Narrative Exam Narrative: General: very pleasant obese female, laying comfortably in bed, A&Ox3, NAD HEENT: EOMI, MMM Heart: RRR, no m/r/g Lungs: CTAB GI: abdomen is soft, nontender, nondistended Extremities: LUE in a sling; no e/c/c BLE's Objective Objective Clinical Data: Abnormal lab results 12/21/18 12/21/18 Range/Units 11:00 11:00 RBC 3.66 L (4.00-5.20) m/cumm Hgb 11.7 L (12.0-15.5) g/dL Hct 35.4 L (36.0-46.0) % MCV 96.7 H (80-95) fL RDW 15.5 H (11.7-14.6) % Absolute Lymphocytes 1.15 L (1.2-3.4) k/cumm Creatinine 0.49 L D (0.55-1.02) mg/dL Glucose 128 H (70-100) mg/dL Vital Signs Temperature 36.6 C 12/21/18 11:45 Temperature Source Tympanic 12/21/18 11:45 Pulse 84 12/21/18 15:07 Pulse Rhythm Regular 12/21/18 17:00 Pulse 94 H 12/20/18 19:20 Respiratory Rate 18 12/21/18 11:45 Respiratory Effort Non-Labored 12/21/18 17:00 Respiratory Depth Normal 12/21/18 17:00 Respiratory Pattern Normal 12/21/18 17:00 Blood Pressure 108/71 12/21/18 11:45 Blood Pressure Mean 65 12/20/18 19:16 Blood Pressure Position Sitting 12/20/18 14:08 Pulse Oximetry 95 12/21/18 11:45 Oxygen Delivery Method Room Air 12/21/18 11:45 Oxygen Flow Rate 0 12/21/18 11:45 Pain Level 0 12/21/18 11:45 Intake & Output 12/20/18 12/21/18 12/21/18 23:59 11:59 23:59 Intake Total 240 / 600 360 / 600 Output Total 525 / 525 1300 / 1300 Balance -525 / -525 -1060 / -700 360 / -700 Weight 93.44 kg 93.4 kg Intake: Oral 240 / 600 360 / 600 Output: Urine 525 / 525 1300 / 1300 Other: Urine Color Yellow Yellow Urine Appearance Clear Clear Urine Odor None Comment RN not present at time of voiding Voiding Methods Toilet Toilet Toilet Laboratory Results WBC 6.66 k/cumm (4.4-10.8) 12/21/18 11:00 RBC 3.66 m/cumm (4.00-5.20) L 12/21/18 11:00 Hgb 11.7 g/dL (12.0-15.5) L 12/21/18 11:00 Hct 35.4 % (36.0-46.0) L 12/21/18 11:00 MCV 96.7 fL (80-95) H 12/21/18 11:00 MCH 32.0 pg (27.0-33.0) 12/21/18 11:00 MCHC 33.1 g/dL (32.0-36.0) 12/21/18 11:00 RDW 15.5 % (11.7-14.6) H 12/21/18 11:00 Plt Count 183 x1000/uL (130-400) 12/21/18 11:00 MPV 10.2 fL (8.0-11.0) 12/21/18 11:00 Immature Gran % 0.6 12/21/18 11:00 69.2 12/21/18 11:00 17.3 12/21/18 11:00 10.5 12/21/18 11:00 2.1 12/21/18 11:00 0.3 12/21/18 11:00 Absolute Neutrophils 4.61 k/cumm (1.2-6.7) 12/21/18 11:00 Absolute Lymphocytes 1.15 k/cumm (1.2-3.4) L 12/21/18 11:00 Absolute Monocytes 0.70 k/cumm (0.11-0.7) 12/21/18 11:00 Absolute Eosinophils 0.14 k/cumm (0.0-0.7) 12/21/18 11:00 Absolute Basophils 0.02 k/cumm (0.0-0.2) 12/21/18 11:00 Sodium 144 mmol/L (136-145) 12/21/18 11:00 Potassium 3.8 mmol/L (3.5-5.1) 12/21/18 11:00 Chloride 106 mmol/L (98-107) 12/21/18 11:00 Carbon Dioxide 28.3 mmol/L (21.0-32.0) 12/21/18 11:00 9.7 mmol/L (3-11) 12/21/18 11:00 BUN 15 mg/dL (7-18) 12/21/18 11:00 0.49 mg/dL (0.55-1.02) L D 07/17/19 11:00 >= 60.00 (mL/min/1.73m2) 12/21/18 11:00 Glucose 128 mg/dL (70-100) H 12/21/18 11:00 Calcium 9.2 mg/dL (8.5-10.1) 12/21/18 11:00 Magnesium 1.9 mg/dL (1.8-2.4) 12/21/18 11:00 0.3 mg/dL (0.2-1.0) 12/20/18 14:10 AST 18 U/L (15-37) 12/20/18 14:10 ALT 45 U/L (12-78) 12/20/18 14:10 106 U/L (46-116) 12/20/18 14:10 37 U/L (26-192) 12/21/18 11:00 6.5 g/dL (6.4-8.2) 12/20/18 14:10 3.2 g/dL (3.4-5.0) L 12/20/18 14:10 Phenytoin 10.8 ug/mL (10.0-20.0) 12/20/18 21:13
[2018-12-21] MEDS: Atorvastatin 40 MG TAB 80 MG PO (20:42)
[2018-12-21] MEDS: levETIRAcetam 500 MG TAB 1000 MG PO (20:43)
[2018-12-21] MEDS: Dexamethasone 4 MG TAB PO (20:43)
[2018-12-22 03:25] VITALS: BP 112/64; PULSE 67; RESP 18; TEMP 36.6; O2SAT 95
[2018-12-22 06:55] LABS: Abs Immature Grans 0.04 k/cumm (0.0-0.09); Absolute Basophil Count 0.03 k/cumm (0.0-0.2); Absolute Eosinophil Count 0.15 k/cumm (0.0-0.7); Absolute Lymphocyte Count 0.89 k/cumm (1.2-3.4); Absolute Monocyte Count 0.55 k/cumm (0.11-0.7); Absolute Neutrophil Count 3.43 k/cumm (1.2-6.7); Basophils % 0.6; Eosinophils % 2.9; HGB 11.2 g/dL (12.0-15.5); Immature Grans % 0.8; Lymphocytes % 17.5; Mean Platelet Volume 9.7 fL (8.0-11.0); Monocytes % 10.8; Neutrophils % 67.4; Platelet Count 184 x1000/uL (130-400); RBC 3.61 m/cumm (4.00-5.20); RBC Distribution Width 15.2 % (11.7-14.6); White Blood Cell Count 5.09 k/cumm (4.4-10.8)
[2018-12-22 07:03] VITALS: PULSE 65
[2018-12-22 07:12] LABS: Anion Gap 7.9 mmol/L (3-11); BUN 15 mg/dL (7-18); CO2 28.1 mmol/L (21.0-32.0); CREATININE 0.62 mg/dL (0.55-1.02); Calcium 8.9 mg/dL (8.5-10.1); Chloride 107 mmol/L (98-107); Creatine Kinase 28 U/L (26-192); Glucose 150 mg/dL (70-100); Magnesium 1.9 mg/dL (1.8-2.4); Potassium 4.1 mmol/L (3.5-5.1); Sodium 143 mmol/L (136-145)
[2018-12-22 07:45] VITALS: BP 118/74; PULSE 65; RESP 18; TEMP 36.5; O2SAT 97
[2018-12-22] MEDS: Famotidine 20 MG TAB PO (08:31)
[2018-12-22] MEDS: Insulin Glargine 300 UNITS/3 ML PEN 32 UNITS SC (08:31)
[2018-12-22] MEDS: Dexamethasone 4 MG TAB PO (08:31)
[2018-12-22] MEDS: levETIRAcetam 500 MG TAB 1000 MG PO (08:32)
[2018-12-22] MEDS: Calcium 600mg/Vit D 200U TAB 1 TAB PO (08:32)
--- NOTE | 2018-12-22 11:11 | OTIE_ITS ---
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 She was recently diagnosed with recurrent breast cancer and was admitted to [facility] to Med Surg for her seizures. PMHX: Breast Cancer Hypertension High cholesterol [place] Borderline diabetes Surgical history Cholecystectomy Mastectomy Stent in 2005 Social History/Home Situation: Pt currently resides with her daughter who lives in [facility]. Her stays with her during the day but she cannot go up and down the stairs at her home currently and they have decided that this is a good set up for her at this time. Pt notes that she has HHOT/PT and nursing in her home to (A) with ADLs. OT comes n 3x per week, PT and nursing 2x. 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 She notes that she would like to go back to work but starts a chemotherapy pill at home to help with her cancer. She reports that she was told that this is not curable but can be managed. Equipment Owned/DME: commode, raised toilet seat, grab bars, shower seat Subjective: Patient is agreeable to OT consult. She reports that she is familiar with OT services and has (A) in her daughters home which she currently resides. Objective: General Observation: Pt is pleasant, she is emotional about dx ad her journey to get to this point in her medical care. She is wearing sling on (L) UE which OT adjusts. Pt tolerates this well. Mental Status: A&Ox3 Pain: 0/10 ROM: Right Upper Extremity: AROM WFL Left Upper Extremity: L UE flaccid minimal digital flexion/extension with fair refuse collector supervisor. Strength: Right Upper Extremity: Shoulder flexion 5/5. Bicep 5/5. Tricep 5/5. Fancy Needleworker strong. Left Upper Extremity: Shoulder flexion 0/5.Bicep 0/5. Tricep 0/5. Fancy Needleworker weak and non-functional. Functional ROM required for ADLs: Pt was able to perform toileting routine (I) on toilet with (A) With functional mobility. She has full AROM required for performance of ADLs but is limited due to (L) UE. Pt requires (A) at baseline for her ADLs but attempts to stay as (I as possible. Balance: Static Sitting: Good Dynamic Sitting: Good Static Standing: Fair Dynamic Standing: Fair SPECIAL TESTS: Daily Activity Limitations Standardized Measure [facility] AM -PAC ?6 clicks? Daily Activity Inpatient Short Form: Raw score: 20 Standardized score: 42.03 CMS score: 38.32% INFORMED CONSENT/EDUCATION: Pt instructed in purpose of OT Consult and plan of care. Assessment: Patient is a 68-year-old female with R-sided parietal tumor S/P radiation x 1 with seizures on 12/20/2018. Patient presents with clinical signs and symptoms consistent with dx. She presents with decreased functional activity tolerance, decreased (L) UE use during ADLs/IADLs, decreased gross and fine motor control of (L) UE, hx of brain tumor and breast cancer. Pt would benefit from skilled OT services for increased (I) in her ADL/IADL routines, education on energy conservation techniques and training in adaptive equipment as needed. Patient is assessed as a [address] low complexity based on the following: History: See above Examination: See above Presentation:Evolving Decision Making: AMPAC score 20, CMS score 38.32% GOALS 1. Transfers (I) 2. Dressing- (I) UE, (I) LE with min vc 3. Bathing- (I) UE, Min (A) LE 4. Toileting- (I) on toilet 5. Eating (I) 6. (I) brushing teeth and hair in standing position at sink PLAN OF CARE/TREATMENT PLAN: 1x/day, 5 days/ week x 1week Initiate Occupational Therapy Services for bathing, dressing, grooming, toileting, eating, transfer training. DISCHARGE RECOMMENDATIONS: Continued services for PT/OT and nursing [facility]
[2018-12-22 11:50] VITALS: BP 126/77; PULSE 76; RESP 18; TEMP 36.7; O2SAT 96
[2018-12-22] MEDS: Insulin Aspart 300 UNITS/3 ML PEN SC (12:03)
--- NOTE | 2018-12-22 12:13 | PT.INTREAT ---
Date of service: 12/22/18 Time of Service: 12:14 PT Notes Inpatient Physical Therapy Treatment Note [facility] Date: 12/22/18 PRECAUTIONS: Fall, Seizure SUBJECTIVE: Sai states that she is feeling good today, she is agreeable to participating in PT. OBJECTIVE: PAIN: No c/o pain BED MOBILITY/TRANSFERS Sit-stand: SBA Stand-sit: SBA GAIT Assistive Device: SPC Weight bearing: Full Assist: SBA Distance: 75' x2 Deviation: Steady pacing and gait Static standing x5 minutes with SPC and SBA ASSESSMENT: Patient tolerated session well without complaint. She was able to tolerate a progression in gait distance with SPC support and SBA. She would benefit from continued gait training for improved activity tolerance. PLAN: Continue with PT's POC TREATMENT CODE/TIME: 15 minutes; [id number]
--- NOTE | 2018-12-22 12:37 | W.INDIABCONS ---
Date of service: 12/22/18 Time of Service: 12:37 Diabetes Inpatient Consult DESCRIPTION/ASSESSMENT: Appreciate diabetes consult for Sai Garcia who is hospitalized with seizures. BMI 36 Self reports most recent A1c 6.0. She is on dexamethasone. Sai has recently had a decrease in Lantus from 32 to 20units based on most recent A1c this past week. Here she is taking 32u Glargine. Blood sugars 113-128mg/dl. Met with Sai who states her daughter draws up her insulin. She is just going to switch to pens. She was shown how to do this but seeks further support. Otherwise she is aware of carbohydrate and attempts to limit it to 45-60 grams per meal. INTERVENTION: She is given a sample insulin pen to practice with. Reviewed and she is given diabetes food guide. No intervention suggested for diabetes management during her stay. PLAN: Will follow blood sugars Time Spent in Nutritional Counseling and Treatment: 15 minutes face to face
--- NOTE | 2018-12-22 15:00 | PT.INDS ---
Date of service: 12/22/18 Time of Service: 16:49 PT Notes Inpatient Physical Therapy Discharge Summary Dates: 12/22/2018 Dates of Service: 12/21/2018 through 12/22/2018 This is a clinical summary of care provided on the duration of dates listed above. No charge was made in the completion of this documentation. Referring Doctor: Silvina Suarez MD PT Orders: PT CONSULT: Eval/treat Precautions: Fall. Standard. Seizure prone. Patient Profile/Admitting Diagnosis: Patient is a 68-year-old female with past medical history significant for right parietal tumor status post radiation x1 with associated seizure disorder in November 2018. She presented to the ED on 12/20/2018 with tonic-clonic seizure lasting for minutes and had been preceded with 2 other episodes prior to admission with suspected precipitant subtherapeutic Dilantin level as CT scan of the brain revealed no change in mass, no hemorrhage, and no acute abnormality. Referral was made to address impairments in strength, activity tolerance, and mobility level. PMHX: Medical history Breast Cancer Hypertension High cholesterol [place] Borderline diabetes Surgical history Cholecystectomy Mastectomy Stent in 2005 Social History/Home Situation: Sai has two places of residences, one in [facility] and the other [place]. She mainly resides in [place], [place] at her daughter's Abigail's house. Abigail has a one level home with three steps to enter with rails on both sides. Sai's second home is in [facility] and she shares it with her Sharon. Their bathroom is on the second floor. Recently, Sharon states that he drives to [place] daily to help take care of Sai while Abigail works. Patient is hoping that she can come back to work eventually once she is safe to do so. 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 Current Functional Limitations: need for assistive device and assistance for all transfer and ambulation tasks due to post-ictal weakness and complications from parietal tumor Equipment Owned/DME: None Subjective: NT Objective: General Observation: NT Mental Status: NT Pain: NT ROM: Right Upper Extremity: Shoulder Flexion WFL. Shoulder abduction WFL. Elbow flexion WFL. Wrist flexion WFL. Functional opening and closing of hand WFL. Left Upper Extremity: L UE flaccid monoplegia with very minimal digital flexion extension allowable but remains to have a very weak non functional grasp. Right Lower Extremity: Hip flexion WFL. Hip abduction WFL. Knee flexion WFL. Ankle dorsiflexion WFL. Ankle plantarflexion WFL. Left Lower Extremity: Hip flexion WFL. Hip abduction WFL. Knee flexion WFL. Ankle dorsiflexion WFL. Ankle plantarflexion WFL. Strength: Right Upper Extremity: Shoulder flexors 5/5. Shoulder abductors 5/5. Elbow flexors 5/5. Elbow extensors 5/5. Venetian Blind Installer strong. Left Upper Extremity: Shoulder flexors 0/5. Shoulder abductors 0/5. Elbow flexors 0/5. Elbow extensors 0/5. Venetian Blind Installer weak and non-functional. Right Lower Extremity: Hip flexors 4/5. Hip abductors 4/5. Knee flexors 4/5. Knee extensors 4/5. Ankle dorsiflexors 4/5. Ankle plantarflexors 4/5. Left Lower Extremity:Hip flexors 4/5. Hip abductors 4/5. Knee flexors 4/5. Knee extensors 4/5. Ankle dorsiflexors 4/5. Ankle plantarflexors 4/5. Sensation: Intact as to pain and pressure on bilateral lower extremities and R UE. Bed Mobility/Transfers: Rolling SBA Supine to sit SBA Sit to supine SBA Sit to stand SBA Stand to sit SBA Bed to chair SBA Chair to bed SBA Gait: Patient was able to tolerate 75 feet ?2 of level surface ambulation using a straight cane requiring only SBA . No aem swing on the left. Decreased gait velocity. Balance: Static Sitting: Good Dynamic Sitting: Good Static Standing: Fair Dynamic Standing: Fair Assessment: Patient is a 68-year-old female with R-sided parietal tumor S/P radiation x 1 with 3 bouts of seizure on 12/20/2018. Patient presents with clinical signs and symptoms consistent with current/admitting diagnoses that have resulted to mobility limitations, gait instability, generalized weakness, and impairment of motor control as demonstrated by the following impairment level findings: 1. Decreased strength to B LE major muscle groups 2. Absent strength on L shoulder, elbow, and wrist muscle groups. 3. Impaired sitting/standing balance 4. Impaired activity tolerance Impairments are contributing to the following functional limitations: 1. Dependent bed mobility skills 2. Increased dependence with transfers 3. Inability to safely ambulate without assistive device and physical assistance 4. Increase completion time for mobility ADL performance 5. Increased fall risk 6. Inability to negotiate steps alone safely Goals: Goals X1 week 1. Supine-Sit independent NOT MET 2. Sit-Supine independent NOT MET 3. Sit-Stand independent NOT MET 4. Stand-Sit independent NOT MET 5. Bed-Chair independent NOT MET 6. Chair-Bed independent NOT MET 7. Independent gait on level surface with use of least restrictive device for at least 100 feet without report of pain nor dyspnea NOT MET 8. Independent stair negotiation while holding onto bilateral rails for at least 3 Steps without report of pain nor dyspnea NOT MET 9. Independent with home exercise program NOT MET 10. Good static and dynamic standing balance/tolerance NOT MET DISCHARGE RECOMMENDATIONS: Patient will benefit from continued home health PT services in order to progress mobility level using least restrictive assistive ambulatory device/using no device, assess home safety, identify additional equipment needs, and establish a functional maintenance program that will increase ability of patient to remain at home. TREATMENT CODE/TIME: NC. Thank you very much for this referral. Brittney Silvestre PT, DPT, CLT [facility]
--- NOTE | 2018-12-22 15:02 | DSE_ITS ---
Date of service: 12/22/18 Time of Service: 15:02 DS: Diagnosis Discharge Diagnosis (1) Focal motor epilepsy: Status: Acute (2) Metastatic cancer to brain: Status: Acute Discharge Plan Disposition Patient Disposition: HOME W/HOME HEALTH SERVICE Condition: Improving Discharge Details Clinical Impression: Focal seizure Reason For Visit: SEIZURE Admit Date/Time: 12/20/18 18:41 Admit Provider: Quentin Sánchez Attending Provider: Quentin Sánchez Primary Care Provider: Eulogio Eaton ED Provider: Erick Nicholson Hospital Course Hospital Course: Ms. 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 She presented to the ED after having seizures at home. She has a remote history of breast cancer and in October 2018 was found to have a metastatic right frontal brain mass manifested by left arm weakness. She was treated with a single dose of radiation directed at the tumor in early November. She subsequently developed a small cerebral hemorrhage around the tumor with increased seizure activity manifested by focal aware motor seizures involving the left arm and leg. She was hospitalized at [facility] at that time in which Dilantin 100 mg 3 times daily was added in addition to Keppra 500 mg twice daily which she was already on. She was on a dexamethasone taper (down to 2mg BID at time of admission) and was doing well until the day of her admission when she had 3 breakthrough seizures. In the emergency department, she had a CT head which showed no change in the mass, no hemorrhage and no acute changes. Her labs were notable for a subtherapeutic phenytoin level. Her case was discussed with neurology at [facility] who recommended admission to the hospital and that she be given a loading dose of phenytoin as well as an additional dose in the evening of 300 mg each and rechecking her levels. She was admitted to the MedSur floor for further observation and management. Neurology was consulted. Dr. George was able to review her oncology records and notes that it was recommended that she come off Dilantin due to its interaction with her chemotherapy. The Dilantin was stopped based on this recommendation. Her Keppra was increased to 1000 mg twice daily, she received an additional 1000 mg IV Keppra loading dose yesterday. Her dexamethasone dose was increased to 4 mg twice daily as well. She had no further seizure activity while she was observed here at the hospital. She was monitored on telemetry and found to be in normal sinus rhythm with rates in the 60s. She was previously scheduled for an MRI brain for next month, Dr. George did not see any benefit in doing the MRI early as she did not feel that it would change medical management. Dr. George spoke with Sai and her and discussed that she may need further titration and changes to her seizure medications to achieve freedom from seizures, she made a plan with them in the event that she has further seizures at home and when it will be important for them to return to the emergency room. Dr. George gave them her card with her phone number so they can contact her as discussed. She is scheduled to follow-up with Dr. George in the neurology clinic as an outpatient. Given that her Decadron dose was increased, she may need titration of her basal insulin regimen. She will continue to monitor her blood glucose at home. She has had home health. Home health will resume services including Nursing and PT. She will follow up with oncology as scheduled. She will follow-up with her primary care provider as scheduled. She will follow-up with neurology as scheduled. Home Meds and New Rx's Prescriptions: New levetiracetam [Keppra] 1,000 mg tablet 1,000 mg PO BID Qty: 60 RF: 0 dexamethasone 4 mg tablet 4 mg PO BID Qty: 60 RF: 0 Continued atorvastatin 80 mg Tablet 80 mg PO QPM RF: 0 Lantus U-100 Insulin 100 unit/mL Solution 20 unit SUBCUT DAILY RF: 0 famotidine 20 mg Tablet 20 mg PO BID RF: 0 nitroglycerin 0.4 mg Tablet, Sublingual 0.4 mg SUBLINGUAL Q5-15M PRNRF: 0 furosemide 20 mg Tablet 20 mg PO DAILY PRNRF: 0 nystatin 100,000 unit/gram Powder 1 applic TOPICAL BID RF: 0 Caltrate 600-D Plus Minerals 600 mg calcium- 800 unit-50 mg Tablet 1 tab PO DAILY RF: 0 Januvia 25 mg Tablet 100 mg PO DAILY RF: 0 Discontinued levetiracetam 500 mg Tablet 500 mg PO BID RF: 0 phenytoin sodium extended [Dilantin Extended] 100 mg Capsule 100 mg PO TID RF: 0 dexamethasone [Decadron] 4 mg Tablet 4 mg PO DIRECTED RF: 0 Discharge Instructions Instructions: Epilepsy (DC) Additional Instructions: Your dexamethasone dose has been increased to 4 mg twice daily. Your Keppra dose has been increased to 1000 mg twice daily. Your Dilantin has been discontinued. You are scheduled for an updated MRI brain next month. Follow-up with neurology as scheduled. Follow-up with your primary care provider as scheduled. Follow-up with oncology as scheduled. Follow Dr. George's recommendations on when to call her versus when to go to the ED for seizures. She has given you her card with her contact information. Take Care! Stand Alone Forms: Nursing Discharge Form Referrals: Eulogio Eaton [Primary Care Provider] - 12/30/18 2:00 pm Arabella George MD [ [facility] STAFF PHYSICIAN] - 01/11/19 12:15 pm Activity:: Activity as Tolerated Equipment/Supplies:: No Equipment Needed Diet:: Carb Counting Discharge Orders Discharge Orders: Discharge Order (Routine); Ordered 12/22/18 Ordered By: Annalee Cha Exam Narrative Exam Narrative: General: very pleasant female, sitting up in a chair, appears comfortable, A&Ox3, in no acute distress. Answers questions appropriately. HEENT: Atraumatic, pupils equal, round, reactive to light, extraocular movements intact, mucous membranes moist. Heart: Heart has regular rate and rhythm, no murmur appreciated. Lungs: Respirations even and unlabored, lung sounds clear bilaterally. GI: Normal bowel sounds throughout, abdomen is soft, nontender, nondistended Extremities: LUE in a sling; lymphedema to left upper extremity. No clubbing, cyanosis or edema to lower extremities, peripheral pulses palpable bilaterally. DS: Data Vitals/I&O Vitals and I&O: Vital Signs Temperature 36.7 C 12/22/18 11:50 Temperature Source Tympanic 12/22/18 11:50 Pulse 76 12/22/18 11:50 Pulse Rhythm Regular 12/22/18 08:14 Pulse 94 H 12/20/18 19:20 Respiratory Rate 18 12/22/18 11:50 Respiratory Effort Non-Labored 12/22/18 08:14 Respiratory Depth Normal 12/22/18 08:14 Respiratory Pattern Normal 12/22/18 08:14 Blood Pressure 126/77 12/22/18 11:50 Blood Pressure Mean 65 12/20/18 19:16 Blood Pressure Position Sitting 12/20/18 14:08 Pulse Oximetry 96 12/22/18 11:50 Oxygen Delivery Method Room Air 12/22/18 11:50 Oxygen Flow Rate 0 12/22/18 11:50 Pain Level 0 12/22/18 03:25 Comment 12/22/18 03:25 Intake & Output 12/21/18 12/22/18 12/22/18 23:59 11:59 23:59 Intake Total 470 / 710 360 / 600 240 / 600 Output Total 300 / 1600 800 / 1350 550 / 1350 Balance 170 / -890 -440 / -750 -310 / -750 Weight 92.9 kg Intake: IV 110 / 110 10 / 10 Oral 360 / 600 350 / 590 240 / 590 Output: Urine 300 / 1600 800 / 1350 550 / 1350 Other: Urine Color Yellow Yellow Yellow Urine Appearance Clear Clear Clear Urine Odor Normal Normal None Comment pt also missed the hat Voiding Methods Toilet Toilet Toilet Completed studies during hospitalization [Text1]: 12/20/18: CT BRAIN: Noncontrast. Comparison 10/07/18 and 11/09/18. There is again seen a mass in the right parietal lobe. It does appear to be unchanged in size. It appears isodense to the surrounding parenchyma. The previously noted hemorrhage in the right parietal lobe has resolved. No new intraparenchymal hemorrhage is seen. There is again seen edema in the surrounding white matter. The ventricles are intact. The basilar cisterns are patent. No significant midline shift is appreciated. The visualized paranasal sinuses are clear. The mastoid air cells are well pneumatized. The calvarium is intact. IMPRESSION: No acute intracranial hemorrhage or change in appearance of the right parietal lobe. Labs on day of discharge: Labs from last 24 hours 12/22/18 12/22/18 06:30 06:30 WBC 5.09 RBC 3.61 L Hgb 11.2 L Hct 35.0 L MCV 97.0 H MCH 31.0 MCHC 32.0 RDW 15.2 H Plt Count 184 MPV 9.7 Immature Gran % 0.8 Neutrophils % 67.4 Lymphocytes % 17.5 Monocytes % 10.8 Eosinophils % 2.9 Basophils % 0.6 Absolute Neutrophils 3.43 Absolute Lymphocytes 0.89 L Absolute Monocytes 0.55 Absolute Eosinophils 0.15 Absolute Basophils 0.03 Sodium 143 Potassium 4.1 Chloride 107 Carbon Dioxide 28.1 Anion Gap 7.9 BUN 15 Creatinine 0.62 Estimated GFR/1.73 m2 >= 60.00 Glucose 150 H Calcium 8.9 Magnesium 1.9 Creatine Kinase 28 PFSH Medical History Breast cancer (Chronic) Focal motor epilepsy (Acute) Heart disease (Acute) Hyperlipidemia (Acute) Hypertension (Chronic) IDDM (insulin dependent diabetes mellitus) (Chronic) Metastatic cancer to brain (Acute) Osteopenia (Acute) Seizure (Acute) Social History Smoking/Tobacco Use Status: Never Alcohol Intake: never Drug use: Never Substance use type: does not use Do you feel safe at home: Yes Do you feel safe in your relationship?: Yes
--- NOTE | 2018-12-22 15:40 | CHAPLAIN ---
I visited Sai twice today. She believes she is being discharged today, but is waiting for that to be confirmed. She would very much like to go home today. Yesterday she told me that she believes she will beat her cancer.
[2018-12-22 16:02] VITALS: PULSE 92
--- NOTE | 2018-12-23 07:45 | OTDS_ITS ---
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 She was recently diagnosed with recurrent breast cancer and was admitted to [facility] to Med Surg for her seizures. PMHX: Breast Cancer Hypertension High cholesterol [place] Borderline diabetes Surgical history Cholecystectomy Mastectomy Stent in 2005 Social History/Home Situation: Pt currently resides with her daughter who lives in [facility]. Her stays with her during the day but she cannot go up and down the stairs at her home currently and they have decided that this is a good set up for her at this time. Pt notes that she has HHOT/PT and nursing in her home to (A) with ADLs. OT comes n 3x per week, PT and nursing 2x. 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 She notes that she would like to go back to work but starts a chemotherapy pill at home to help with her cancer. She reports that she was told that this is not curable but can be managed. Equipment Owned/DME: commode, raised toilet seat, grab bars, shower seat Subjective: NT THIS DOCUMENT SERVES A SUMMARY OF CARE, NO SKILLED OT SERVICES PROVIDED FOR THIS DOCUMENTATION. Objective: ROM: Right Upper Extremity: AROM WFL Left Upper Extremity: L UE flaccid minimal digital flexion/extension with fair test desk supervisor. Strength: Right Upper Extremity: Shoulder flexion 5/5. Bicep 5/5. Tricep 5/5. Health And Wellness Instructor strong. Left Upper Extremity: Shoulder flexion 0/5.Bicep 0/5. Tricep 0/5. Health And Wellness Instructor weak and non-functional. Functional ROM required for ADLs: Pt was able to perform toileting routine (I) on toilet with (A) With functional mobility. She has full AROM required for performance of ADLs but is limited due to (L) UE. Pt requires (A) at baseline for her ADLs but attempts to stay as (I as possible. Balance: Static Sitting: Good Dynamic Sitting: Good Static Standing: Fair Dynamic Standing: Fair Assessment: Patient is a 68-year-old female with R-sided parietal tumor S/P radiation x 1 with seizures on 12/20/2018. Pt was unable to meet goals established as pt was seen for OT consult. She was transitioned home with return of HH services. GOALS-not met unless specified 1. Transfers (I)-Met 2. Dressing- (I) UE, (I) LE with min vc 3. Bathing- (I) UE, Min (A) LE 4. Toileting- (I) on toilet-met 5. Eating (I)-met 6. (I) brushing teeth and hair in standing position at sink PLAN OF CARE/TREATMENT PLAN: Discharge from skilled OT services. DISCHARGE RECOMMENDATIONS: Continued services for PT/OT and nursing Charges- N/A Jeannette Chacon OTR/L [facility]
--- NOTE | 2018-12-24 08:37 | PCNE_ITS ---
Date of service: 12/21/18 History of Present Illness Chief Complaint: seizure in setting of right sided brain mets from breast ca Narrative: Sai was diagnosed and treated for breast cancer by Dr Joe 12 years ago. She thought she was completely cured of her breast cancer. However, in September 2018, she had some parasethesias of her left hand. She sought care in the [facility] ER; this was thought to be due to a fall. Then in October, she had progressive tingling and weakness of her left arm and hand. She returned to the ER and this time due to her near complete inability to use her left arm/hand, her evaluation included a head CT. That showed a tumor on the right side of her brain along with significant cerebral edema. She was transferred to [facility] neurosurgery. I spoke to the neurosurgery team there; they explained that she did not have a brain biopsy as it was determined by imaging not to be a primary brain cancer but a metastasis from her breast cancer. She was treated with high dose radiation x 1 to the tumor--no craniotomy. 2 days after her radiation treatment, she had her first seizure, and was brought to the ER where she had 5 more seizures. She was again transferred to [facility] where they stabilized her and modified her anti-seizure meds. This time, the day before I saw her, she noted that her balance was off and she felt more tired. She then had another seizure. She notes that her L thumb will hurt and that she starts yawning at the onset of her seizures. She has found putting ice around her left hand/arm helps stop them. I was seeing her with her , sister and brother in law present. She was talkative and pleasant. She is familiar with palliative care and at first said she didn't want to see me, then said she was joking and knew she better. Consults Consult date: 12/21/18 Requesting physician: Silvina Suarez Assessment and Plan (1) Counseling regarding advance directives and goals of care: Current visit: Yes Status: Acute She was very anxious to address this topic. Not ready to. Is still full code. Will work on AD and or COLST at next visit---if she is ready. 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 (3) Breast cancer metastasized to brain: Current visit: Yes Status: Acute did speak with neurosurgery at [facility] they explained that she did not have brain biopsy or craniotomy just one treatment of high dose targeted radiation to the metastasis in her right brain team is confident that this is breast cancer metastasized to her brain (4) Metastatic cancer to brain: Current visit: No Status: Acute see above; primary met was in right frontal lobe; may lead to frontal lobe release syndrome/behaviors; often limited insight into condition for patients with right sided brain lesions also has mets to bone, her scalp particularly (5) Focal motor epilepsy: Current visit: No Status: Acute Dr George and Dr Suarez are working to come up with alternative seizure control plan Sai is sure that cold on her left hand helps she will keep cold packs with her, especially during the summer (6) Breast cancer metastasized to bone: Current visit: Yes Status: Acute in her skull, near original metastatic brain tumor denies any pain from this Review of Systems Constitutional Reports fatigue and Reports weakness Eyes Reports other (NO change in vision, no diplopia) ENT Reports dry mouth and Reports disequilibrium Cardiovascular Reports dyspnea on exertion Respiratory Reports dyspnea on exertion Gastrointestinal Reports constipation Comments: no loss of bowel control with her seizures Genitourinary Reports urinary incontinence Musculoskeletal Reports abnormal gait, Reports atrophy, Reports limited range of motion, Reports muscle weakness, Reports numbness, Reports stiffness and Reports tingling Comments: left arm/hand still with decreased neurological function Integumentary/Breasts Reports dry skin Neurologic Reports abnormal gait, Reports lack of coordination, Reports memory loss, Reports numbness, Reports convulsions, Reports seizure-like activity, Reports tingling, Reports paresthesias, Reports disequilibrium and Reports weakness Comments: NO headaches Psychiatric Reports anxiety, Reports difficulty concentrating and Reports memory loss Endocrine Reports fatigue Hematologic/Lymphatic Reports easy bruising [facility] Medical History (Updated 12/24/18 @ 09:17 by Zaida Stanley MD) Ataxia (Acute) Breast cancer (Chronic) Breast cancer metastasized to bone (Acute) Breast cancer metastasized to brain (Acute) Counseling regarding advance directives and goals of care (Acute) Ex-smoker (Acute) Focal motor epilepsy (Acute) Heart disease (Acute) Hyperlipidemia (Acute) Hypertension (Chronic) IDDM (insulin dependent diabetes mellitus) (Chronic) Metastatic cancer to brain (Acute) Osteopenia (Acute) Palliative care patient (Acute) Seizure (Acute) Surgical History (Updated 12/24/18 @ 08:59 by Zaida Stanley MD) H/O partial mastectomy (Acute) Family History (Updated 12/24/18 @ 09:02 by Zaida Stanley MD) Sister Epilepsy Son No problems noted. Daughter No problems noted. Mother Breast cancer Father Lung cancer Prostate cancer Social History (Updated 12/24/18 @ 09:05 by Zaida Stanley MD) Smoking/Tobacco Use Status: Former Tobacco Use Alcohol Intake: never Drug use: Never Substance use type: does not use Caregiver/Support person: Yes Household members: spouse Housing: house Number of Children: 2 number of grandchildren: 7 Communication Needs: Corrective Lenses Education Level: high school Do you need help understanding health information?: Always current occupation: was working for [employer] in [employer] when diagnosed; out on disability Pets and animals: Yes What is your relationship status?: How often do you talk on the phone with friends or family?: three or more times per week How often do you get together with friends or relatives?: three or more times per week Panel score (0-1 are the most socially isolated patients): 2 What type of physical activity do you participate in: walking and sedentary lifestyle Duration: < 15 minutes/day Frequency: 5-6 times per week Special damien needs: No Agree to transfusion: Yes Seatbelt use: always Fire extinguisher in home: Yes Do you feel safe at home: Yes Do you feel safe in your relationship?: Yes Additional Social history: to Sharon x 33 years currently living with her daughter in [place] as her house is not handicapped-accessible she fell once down the stairs at her home and worries she will fall again Exam Const General: cooperative, no acute distress and well groomed Nutritional Appearance: obese Orientation: alert, awake, oriented to person and oriented to place [facility] Head: normocephalic, atraumatic and other (discrete area of hair loss posterior right scalp due to radiation tx) Ears: hearing grossly normal bilaterally General nose exam: external nose normal Face and sinus: normal facial exam Eyes General: appearance normal, both eyes and all related structures Conjunctivae: conjunctivae normal Sclera: sclerae normal Neck Neck: no lymphadenopathy and no JVD Resp Effort & Inspection: normal respiratory effort and able to speak in complete sentences Auscultation: clear to auscultation bilaterally and diminished lung sounds Cardio Jugular venous pressure: no JVD Rate: regular rate Rhythm: regular rhythm Heart Sounds: S1 normal and S2 normal GI Inspection: obesity Palpation: soft Auscultation: normal bowel sounds Skin General skin exam: no rashes or lesions noted and dry skin Wounds: no wounds Hair: normal (except for bald patch right posterior scalp) Neuro General: alert and awake Cognition: normal cognition Speech: speech normal Gait: other (in bed, did not get her up; has left UE hemiparesis) Motor: muscle tone abnormal and strength abnormal Extrem Left upper extremity: shoulder/upper arm Details: abnormal ROM and hand Details: neuromotor exam abnormal and neurosensory exam abnormal Psych Appearance: grossly normal Mental Status: mental status grossly normal Speech and Movement: speech clear and slowed movement Mood: anxious mood Affect: anxious affect Attitude: cooperative Thought Process: loose association Thought Content: normal Insight: fair Judgment: fair Other: still processing her recent diagnosis she now has some frontal lobe release signs Results Last Vital Signs Temp 98.1 F 12/22/18 11:50 Pulse 92 H 12/22/18 16:02 Resp 18 12/22/18 11:50 BP 126/77 12/22/18 11:50 Pulse Ox 96 12/22/18 11:50 Labs : 12/22/18 06:30 12/22/18 06:30
== END 2018-12-22 16:26 | disposition home health service (06) ==
LOC: ER 18:24 → MS 19:45
PROVIDERS: Admitting Provider General Practice; Emergency Provider Student in an Organized Health Care Education/Training Program; PCP Family Medicine; Visit Provider Internal Medicine
DX: G40.109 Localization-related (focal) (partial) symptomatic epilepsy and epileptic syndromes with simple partial seizures, not intractable, without status epilepticus (principal); C79.31 Secondary malignant neoplasm of brain; I10 Essential (primary) hypertension; E11.9 Type 2 diabetes mellitus without complications; E78.5 Hyperlipidemia, unspecified; Z85.3 Personal history of malignant neoplasm of breast; Z79.4 Long term (current) use of insulin; I89.0 Lymphedema, not elsewhere classified; E66.9 Obesity, unspecified; Z68.36 Body mass index [BMI] 36.0-36.9, adult; Z71.3 Dietary counseling and surveillance
CPT/HCPCS: 36415; 80048; 80053; 82550; 85027; 93005; 97162; 97165; 97530; 99215; 99222; 99223; 99232; 99239; 99255; 99285; 70450; 80185; 83735; 85025; 93010; 99217; 99219; 99225; 99284; G0378; J1815; J1953; J3490; J8540; L3650

== ENCOUNTER → 2018-12-21 10:48 | Outpatient (BNVA) | payer MEDICARE, SELFPAY | PROVIDERS: PCP Family Medicine; Visit Provider Psychiatry & Neurology Neurology | DX: R69 Illness, unspecified (principal) ==

== ENCOUNTER 2018-12-29 01:27 | Outpatient (CLI) | payer MEDICARE, SELFPAY ==
[2018-12-29 08:30] LABS: Abs Immature Grans 0.05 k/cumm (0.0-0.09); Absolute Basophil Count 0.02 k/cumm (0.0-0.2); Absolute Eosinophil Count 0.06 k/cumm (0.0-0.7); Absolute Monocyte Count 0.69 k/cumm (0.11-0.7); Absolute Neutrophil Count 6.08 k/cumm (1.2-6.7); Basophils % 0.2; Eosinophils % 0.7; HCT 37.5 % (36.0-46.0); HGB 12.5 g/dL (12.0-15.5); Immature Grans % 0.6; Lymphocytes % 14.8; Mean Corp. HGB Concentration 33.3 g/dL (32.0-36.0); Mean Corpuscular Hemoglobin 31.9 pg (27.0-33.0); Mean Corpuscular Volume 95.7 fL (80-95); Monocytes % 8.5; Neutrophils % 75.2; Platelet Count 235 x1000/uL (130-400); RBC 3.92 m/cumm (4.00-5.20); RBC Distribution Width 14.7 % (11.7-14.6)
[2018-12-29 08:41] LABS: ALT 37 U/L (12-78); Albumin 3.3 g/dL (3.4-5.0); Alkaline Phosphatase 88 U/L (46-116); Anion Gap 8.1 mmol/L (3-11); BUN 21 mg/dL (7-18); Bilirubin, Total 0.4 mg/dL (0.2-1.0); CO2 28.9 mmol/L (21.0-32.0); Chloride 103 mmol/L (98-107); Glucose 159 mg/dL (70-100); Potassium 3.7 mmol/L (3.5-5.1); Sodium 140 mmol/L (136-145); Total Protein 6.5 g/dL (6.4-8.2)
[2018-12-29 08:53] LABS: AST < 5 U/L (15-37)
--- NOTE | 2018-12-29 15:00 | DI.RAD_ITS ---
SYMPTOMS/DIAGNOSIS: OSTEOPENIA, BREAST CA, REASSESSMENT OF BONE DENSITY, IDIOPATHIC OSTEOPOROSIS, M81.8 DEXA SCAN WITH RONNIE: The RONNIE image shows no evidence of compression fractures. The upper thoracic vertebral bodies are not well delineated. The bone mineral density measurements of the lumbar spine correspond to a total T score of -1.3, in the osteopenic range. This is slightly increased from the previous exams. The bone mineral density measurements of the left hip correspond to a total T score of -1.5 and a femoral neck T score of -2.3, in the osteopenic range. This is a 13.4% decrease when compared with 2008 and a 16.4% decrease when compared with 2006. The right forearm bone mineral density measurements correspond to a T score of the distal third of -1.2. The forearm was not analyzed on the previous examinations. IMPRESSION: Osteopenia of the right forearm. Osteopenia of the left hip with significant decrease when compared with the previous exams. Osteopenia of the lumbar spine with mild increase when compared with prior exams.
[2019-01-02 18:32] LABS: Cancer Ag 15-3 25 U/mL (<30)
== END 2018-12-29 01:47 ==
PROVIDERS: PCP Family Medicine; Visit Provider Internal Medicine Hematology & Oncology
DX: C50.919 Malignant neoplasm of unspecified site of unspecified female breast (principal); C79.31 Secondary malignant neoplasm of brain; M85.831 Other specified disorders of bone density and structure, right forearm; M85.852 Other specified disorders of bone density and structure, left thigh; M85.88 Other specified disorders of bone density and structure, other site
CPT/HCPCS: 36415; 77080; 80053; 86304; 85025; 86300

== ENCOUNTER 2018-12-31 17:30 | Emergency (ER) | payer MEDICARE, SELFPAY ==
[2018-12-31] VITALS (31 sets, daily range): BP systolic 92–136; BP diastolic 49–89; PULSE 61–86; RESP 12–21; TEMP 36.5; O2SAT 88–97
--- NOTE | 2018-12-31 17:46 | W.ED.GENAD ---
Discharge Plan Disposition Patient Disposition: HOME Condition: Stable Discharge Details Chief Complaint: Seizure Clinical Impression: Focal motor epilepsy Primary Care Provider: Eulogio Eaton ED Provider: Kan Bowie Home Meds and New Rx's Prescriptions: New levetiracetam [Keppra] 500 mg tablet 500 mg PO BID Qty: 60 RF: 0 Continued atorvastatin 80 mg Tablet 80 mg PO QPM RF: 0 Lantus U-100 Insulin 100 unit/mL Solution 20 unit SUBCUT DAILY RF: 0 famotidine 20 mg Tablet 20 mg PO BID RF: 0 nitroglycerin 0.4 mg Tablet, Sublingual 0.4 mg SUBLINGUAL Q5-15M PRNRF: 0 furosemide 20 mg Tablet 20 mg PO DAILY PRNRF: 0 nystatin 100,000 unit/gram Powder 1 applic TOPICAL BID RF: 0 Caltrate 600-D Plus Minerals 600 mg calcium- 800 unit-50 mg Tablet 1 tab PO DAILY RF: 0 levetiracetam [Keppra] 1,000 mg tablet 1,000 mg PO BID Qty: 60 RF: 0 dexamethasone 4 mg tablet 4 mg PO BID Qty: 60 RF: 0 Januvia 25 mg Tablet 100 mg PO DAILY RF: 0 Discharge Instructions Instructions: Recurrent Seizures in Adults (ED) Additional Instructions: Please follow-up with your neurologist Dr. Clarke Wednesday. I discussed your case with the on-call neurologist at [facility]. You were given an additional 4 mg of dexamethasone tonight and your Keppra dose was increased to 1500 mg twice daily. Home to rest tonight. Return for any acute concerns. Continue all other regular medications. Medical Decision Making 68-year-old female with metastatic breast cancer, no one intracranial metastases secondary to which she developed a seizure disorder for which she is currently taking levetiracetam. She had 3 minutes of tonic-clonic left upper extremity movement without change to consciousness this evening. She denies fall or other injury. No headache. She arrives afebrile with normal vital signs. Cranial nerves II through XII are intact. Patient given 4 mg of dexamethasone, referred for CT. images show stable right frontal and parietal edema with previously noted right frontal lobe mass approximate 12 mm and stable. Note of minimal 2 mm midline shift. She is followed by neurology at [facility],, and case discussed with them. They recommend increasing Keppra to 1500 mg. Patient is to follow-up with Dr. Clarke, her primary neurologist. She is improved and appropriate for ongoing outpatient management. Lab Data Lab results reviewed: Yes I reviewed the patient's lab results. Laboratory Results - last 24 hr 12/31/18 12/31/18 12/31/18 18:00 18:00 18:00 WBC 9.73 RBC 3.91 L Hgb 12.6 Hct 37.4 MCV 95.7 H MCH 32.2 MCHC 33.7 RDW 14.6 Plt Count 237 MPV 10.1 Immature Gran % 0.7 Neutrophils % 76.6 Lymphocytes % 14.7 Monocytes % 7.5 Eosinophils % 0.3 Basophils % 0.2 Absolute Neutrophils 7.45 H Absolute Lymphocytes 1.43 Absolute Monocytes 0.73 H Absolute Eosinophils 0.03 Absolute Basophils 0.02 PT 10.2 INR 1.0 APTT 20.5 L Sodium 142 Potassium 4.0 Chloride 105 Carbon Dioxide 29.9 Anion Gap 7.1 BUN 34 H D Creatinine 0.84 Estimated GFR/1.73 m2 >= 60.00 Glucose 149 H Calcium 9.0 Total Bilirubin 0.3 AST 12 L ALT 50 Alkaline Phosphatase 105 Total Protein 6.5 Albumin 3.3 L HPI General Mode of arrival: ambulatory. Date/Time Provider Initiated Documentation: 12/31/18 17:36. Limitations to Documentation: no limitations. Information obtained by: patient and family. History of Present Illness 68 year old F presents to the emergency department with the chief complaint of Left upper extremity seizure for 3 minutes, described as moderate and similar to prior episodes, and is localized to the left and upper extremity. Patient reports no radiation. Patient started experiencing this minute(s) and it has been now resolved. No relieving factors improve symptom(s), No exacerbating factors reported . Patient notes no other symptoms.; denies fever/chills and headaches. Patient did receive the following treatments prior to arrival, none Related Data Home Medications Medication Instructions Recorded Confirmed Januvia 100 mg PO DAILY 09/17/18 12/31/18 atorvastatin 80 mg PO QPM 10/07/18 12/31/18 Caltrate 600-D Plus Minerals 1 tab PO DAILY 12/20/18 12/31/18 Lantus U-100 Insulin 20 unit SUBCUT DAILY 12/20/18 12/31/18 famotidine 20 mg PO BID 12/20/18 12/31/18 furosemide 20 mg PO DAILY PRN 12/20/18 12/31/18 nitroglycerin 0.4 mg SUBLINGUAL Q5-15M PRN 12/20/18 12/31/18 nystatin 1 applic TOPICAL BID 12/20/18 12/31/18 dexamethasone 4 mg PO BID #60 tab 12/22/18 12/31/18 levetiracetam [Keppra] 1,000 mg PO BID #60 tab 12/22/18 12/31/18 levetiracetam [Keppra] 500 mg PO BID #60 tab 12/31/18 Previous Rx's Medication Instructions Recorded dexamethasone 4 mg PO BID #60 tab 12/22/18 levetiracetam [Keppra] 1,000 mg PO BID #60 tab 12/22/18 levetiracetam [Keppra] 500 mg PO BID #60 tab 12/31/18 Allergies Allergy/AdvReac Type Severity Reaction Status Date / Time nickel Allergy Unverified 12/31/18 17:38 Sulfa (Sulfonamide Allergy Unverified 12/31/18 17:38 Antibiotics) codeine [Codeine] AdvReac Nausea Unverified 12/31/18 17:38 General Stated Complaint: Seizure KATHERINE: 2 Review of Systems Review of Systems 6 systems reviewed and otherwise negative [facility] Medical History Ataxia (Acute) Breast cancer (Chronic) Breast cancer metastasized to bone (Acute) Breast cancer metastasized to brain (Acute) Counseling regarding advance directives and goals of care (Acute) Ex-smoker (Acute) Focal motor epilepsy (Acute) Heart disease (Acute) Hyperlipidemia (Acute) Hypertension (Chronic) IDDM (insulin dependent diabetes mellitus) (Chronic) Metastatic cancer to brain (Acute) Osteopenia (Acute) Palliative care patient (Acute) Seizure (Acute) Surgical History H/O partial mastectomy (Acute) Family History Sister Epilepsy Son No problems noted. Daughter No problems noted. Mother Breast cancer Father Lung cancer Prostate cancer Social History Smoking/Tobacco Use Status: Former Tobacco Use Alcohol Intake: never Drug use: Never Substance use type: does not use Caregiver/Support person: Yes Household members: spouse Housing: house Number of Children: 2 number of grandchildren: 7 Communication Needs: Corrective Lenses Education Level: high school Do you need help understanding health information?: Always current occupation: was working for [employer] in [employer] when diagnosed; out on disability Pets and animals: Yes What is your relationship status?: How often do you talk on the phone with friends or family?: three or more times per week How often do you get together with friends or relatives?: three or more times per week Panel score (0-1 are the most socially isolated patients): 2 What type of physical activity do you participate in: walking and sedentary lifestyle Duration: < 15 minutes/day Frequency: 5-6 times per week Special damien needs: No Agree to transfusion: Yes Seatbelt use: always Fire extinguisher in home: Yes Do you feel safe at home: Yes Do you feel safe in your relationship?: Yes Additional Social history: to Sharon x 33 years currently living with her daughter in [place] as her house is not handicapped-accessible she fell once down the stairs at her home and worries she will fall again Exam Narrative Exam Narrative: GEN: awake, alert, oriented 3. Pleasant, well groomed, interactive. HEAD: Normocephalic, atraumatic ENT: Mucous membranes moist, oropharynx unremarkable, External ear exam unremarkable EYES: PERRL, EOMI NECK: Full ROM, no RENU, no menigismus CHEST/RESP: Nontender, clear to auscultation bilateral, no wheeze/rhonchi/rales CARDIOVASCULAR: RRR, no murmur, rub spenser. 2+ Rad pulse bilateral ABDOMEN: Soft, nontender, no mass. +Bowel sounds EXT: Full ROM, no edema, no rash Neuro: Grossly normal neurologic exam, conversant, interactive. Cranial nerves II through XII intact. Motor 5 out of 5 in the bilateral upper and lower extremity Psych: Speech fluent, thoughts congruent, affect normal Course Vital Signs Temperature 36.5 C 12/31/18 17:33 Pulse 86 12/31/18 17:33 Respiratory Rate 18 12/31/18 17:33 Blood Pressure 132/65 12/31/18 17:33 Pulse Oximetry 97 07/27/19 17:33 Temperature 36.5 C 12/31/18 17:33 Temperature Source Temporal Artery Scan 12/31/18 17:33 Pulse 86 12/31/18 17:33 Respiratory Rate 18 12/31/18 17:33 Respiratory Effort Non-Labored 12/31/18 17:37 Blood Pressure 132/65 12/31/18 17:33 Blood Pressure Position Supine 12/31/18 17:33 Pulse Oximetry 97 12/31/18 17:33 Oxygen Delivery Method Room Air 12/31/18 17:33 Oxygen Flow Rate 0 12/31/18 17:33 Pain Level 0 12/31/18 17:33
[2018-12-31] MEDS: Dexamethasone 4 MG/ML VIAL IVP (18:10)
[2018-12-31 18:21] LABS: Abs Immature Grans 0.07 k/cumm (0.0-0.09); Absolute Basophil Count 0.02 k/cumm (0.0-0.2); Absolute Eosinophil Count 0.03 k/cumm (0.0-0.7); Absolute Lymphocyte Count 1.43 k/cumm (1.2-3.4); Absolute Monocyte Count 0.73 k/cumm (0.11-0.7); Absolute Neutrophil Count 7.45 k/cumm (1.2-6.7); Basophils % 0.2; Eosinophils % 0.3; HCT 37.4 % (36.0-46.0); HGB 12.6 g/dL (12.0-15.5); Immature Grans % 0.7; Lymphocytes % 14.7; Mean Corp. HGB Concentration 33.7 g/dL (32.0-36.0); Mean Corpuscular Hemoglobin 32.2 pg (27.0-33.0); Mean Corpuscular Volume 95.7 fL (80-95); Mean Platelet Volume 10.1 fL (8.0-11.0); Monocytes % 7.5; Neutrophils % 76.6; Platelet Count 237 x1000/uL (130-400); RBC 3.91 m/cumm (4.00-5.20); RBC Distribution Width 14.6 % (11.7-14.6); White Blood Cell Count 9.73 k/cumm (4.4-10.8)
[2018-12-31 18:30] LABS: PTT Activated 20.5 sec (21.0-31.4); Prothrombin Time 10.2 sec (9.3-11.0)
--- NOTE | 2018-12-31 18:30 | DI.CT_ITS ---
SYMPTOM/DIAGNOSIS: SEIZURE, H/O METS CT BRAIN: Noncontrast examination. Comparison 12/20/18 The isodense nodule in the right parietal lobe is stable. There is a stable large area of decreased attenuation in the right frontal and parietal lobe. No intracranial hemorrhage is seen. The ventricles are intact. The basilar cisterns are patent. The visualized paranasal sinuses are clear as are the mastoid air cells. The calvarium is intact surrounding white matter hypodensity.
[2018-12-31 18:35] LABS: ALT 50 U/L (12-78); AST 12 U/L (15-37); Albumin 3.3 g/dL (3.4-5.0); Alkaline Phosphatase 105 U/L (46-116); Anion Gap 7.1 mmol/L (3-11); BUN 34 mg/dL (7-18); Bilirubin, Total 0.3 mg/dL (0.2-1.0); CO2 29.9 mmol/L (21.0-32.0); CREATININE 0.84 mg/dL (0.55-1.02); Chloride 105 mmol/L (98-107); Glucose 149 mg/dL (70-100); Sodium 142 mmol/L (136-145); Total Protein 6.5 g/dL (6.4-8.2)
--- NOTE | 2018-12-31 18:55 | DI.VRAD_ITS ---
EXAM: CT Head Without Contrast EXAM DATE/TIME: 12/31/2018 6:19 PM CLINICAL HISTORY: 68 years old, female; Other: Seizure, hs of mets TECHNIQUE: Imaging protocol: Computed tomography images of the head without contrast. Coronal and sagittal reformatted images were created and reviewed. Radiation optimization: All CT scans at this facility use at least one of these dose optimization techniques: automated exposure control; mA and/or kV adjustment per patient size (includes targeted exams where dose is matched to clinical indication); or iterative reconstruction. COMPARISON: CT HEAD WO 12/20/2018 3:30 PM FINDINGS: Brain: Large area of white matter hypodensity/edema in the right frontal and parietal lobes is stable. Previously noted high density mass in the right posterior frontal lobe is ill-defined on the current study and may measures 12 mm, stable. Midline shift: Minimal 2 mm leftward midline shift is stable. Ventricles: No ventriculomegaly. Bones/joints: Unremarkable. No acute fracture. Sinuses: Visualized sinuses are unremarkable. No fluid levels. Mastoid air cells: Visualized mastoid air cells are well aerated. No mastoid effusion. Soft tissues: Unremarkable. IMPRESSION: 1. Large area of white matter hypodensity/edema in the right frontal and parietal lobes is stable. Previously noted high density mass in the right posterior frontal lobe is ill-defined on the current study and may measures 12 mm, stable. 2. Minimal 2 mm leftward midline shift is stable. Dictated and Authenticated by: Luc Santana MD. Ordering:JESSICA Omer MD
[2018-12-31] MEDS: levETIRAcetam 250 MG TAB 1500 MG PO ×2 (20:04→20:05)
== END 2018-12-31 20:27 | disposition home or self-care (01) ==
PROVIDERS: Emergency Provider Emergency Medicine; PCP Family Medicine
DX: G40.109 Localization-related (focal) (partial) symptomatic epilepsy and epileptic syndromes with simple partial seizures, not intractable, without status epilepticus (principal); C50.919 Malignant neoplasm of unspecified site of unspecified female breast; C79.31 Secondary malignant neoplasm of brain; E11.9 Type 2 diabetes mellitus without complications; Z79.4 Long term (current) use of insulin; I10 Essential (primary) hypertension; Z51.5 Encounter for palliative care
CPT/HCPCS: 36415; 80053; 96374; 99284; 70450; 85025; 85610; 85730; J1100

== ENCOUNTER 2019-01-12 09:08 | Outpatient (CLI) | payer MEDICARE, SELFPAY ==
[2019-01-12 10:03] LABS: Abs Immature Grans 0.06 k/cumm (0.0-0.09); Absolute Basophil Count 0.01 k/cumm (0.0-0.2); Absolute Eosinophil Count 0.02 k/cumm (0.0-0.7); Absolute Lymphocyte Count 0.86 k/cumm (1.2-3.4); Absolute Monocyte Count 0.59 k/cumm (0.11-0.7); Absolute Neutrophil Count 6.69 k/cumm (1.2-6.7); Basophils % 0.1; Eosinophils % 0.2; HGB 13.2 g/dL (12.0-15.5); Immature Grans % 0.7; Lymphocytes % 10.4; Mean Corpuscular Hemoglobin 31.8 pg (27.0-33.0); Mean Corpuscular Volume 96.4 fL (80-95); Mean Platelet Volume 10.7 fL (8.0-11.0); Monocytes % 7.2; Neutrophils % 81.4; Platelet Count 196 x1000/uL (130-400); RBC 4.15 m/cumm (4.00-5.20); RBC Distribution Width 14.1 % (11.7-14.6); White Blood Cell Count 8.23 k/cumm (4.4-10.8)
[2019-01-12 10:16] LABS: ALT 144 U/L (12-78); AST 34 U/L (15-37); Albumin 3.2 g/dL (3.4-5.0); Alkaline Phosphatase 83 U/L (46-116); Anion Gap 8.1 mmol/L (3-11); BUN 24 mg/dL (7-18); Bilirubin, Total 0.5 mg/dL (0.2-1.0); CO2 30.9 mmol/L (21.0-32.0); CREATININE 0.65 mg/dL (0.55-1.02); Calcium 8.7 mg/dL (8.5-10.1); Chloride 105 mmol/L (98-107); Glucose 189 mg/dL (70-100); Potassium 4.2 mmol/L (3.5-5.1); Sodium 144 mmol/L (136-145); Total Protein 6.3 g/dL (6.4-8.2)
[2019-01-13 13:52] LABS: Cancer Ag 15-3 19 U/mL (<30)
== END 2019-01-12 09:28 ==
PROVIDERS: PCP Family Medicine; Visit Provider Internal Medicine Hematology & Oncology
DX: C50.919 Malignant neoplasm of unspecified site of unspecified female breast (principal); C79.31 Secondary malignant neoplasm of brain
CPT/HCPCS: 36415; 80053; 86304; 85025; 86300

== ENCOUNTER 2019-01-26 09:47 | Outpatient (CLI) | payer MEDICARE, SELFPAY ==
[2019-01-26 10:28] LABS: Abs Immature Grans 0.05 k/cumm (0.0-0.09); Absolute Basophil Count 0.01 k/cumm (0.0-0.2); Absolute Eosinophil Count 0.07 k/cumm (0.0-0.7); Absolute Lymphocyte Count 0.93 k/cumm (1.2-3.4); Absolute Neutrophil Count 6.96 k/cumm (1.2-6.7); Basophils % 0.1; Eosinophils % 0.8; HCT 41.8 % (36.0-46.0); HGB 14.2 g/dL (12.0-15.5); Immature Grans % 0.6; Lymphocytes % 10.9; Mean Corpuscular Hemoglobin 32.6 pg (27.0-33.0); Mean Corpuscular Volume 96.1 fL (80-95); Mean Platelet Volume 10.2 fL (8.0-11.0); Monocytes % 5.9; Neutrophils % 81.7; Platelet Count 162 x1000/uL (130-400); RBC 4.35 m/cumm (4.00-5.20); RBC Distribution Width 13.7 % (11.7-14.6); White Blood Cell Count 8.52 k/cumm (4.4-10.8)
[2019-01-26 10:42] LABS: ALT 177 U/L (12-78); AST 28 U/L (15-37); Albumin 3.2 g/dL (3.4-5.0); Alkaline Phosphatase 68 U/L (46-116); Anion Gap 9.1 mmol/L (3-11); BUN 27 mg/dL (7-18); Bilirubin, Total 0.9 mg/dL (0.2-1.0); CO2 27.9 mmol/L (21.0-32.0); CREATININE 0.83 mg/dL (0.55-1.02); Calcium 8.7 mg/dL (8.5-10.1); Chloride 103 mmol/L (98-107); Glucose 169 mg/dL (70-100); Potassium 4.2 mmol/L (3.5-5.1); Sodium 140 mmol/L (136-145); Total Protein 6.3 g/dL (6.4-8.2)
[2019-01-27 11:28] LABS: Cancer Ag 15-3 20 U/mL (<30)
[2019-01-31 15:04] LABS: 1,25-Dihydroxyvitamin D 27 pg/mL (18-78)
== END 2019-01-26 10:07 ==
PROVIDERS: PCP Family Medicine; Visit Provider Internal Medicine Hematology & Oncology
DX: C50.919 Malignant neoplasm of unspecified site of unspecified female breast (principal); C77.1 Secondary and unspecified malignant neoplasm of intrathoracic lymph nodes; E55.9 Vitamin D deficiency, unspecified
CPT/HCPCS: 36415; 80053; 86304; 82652; 85025; 86300

== ENCOUNTER 2019-02-04 12:20 | Emergency (ER) | payer MEDICARE, SELFPAY ==
[2019-02-04] VITALS (21 sets, daily range): BP systolic 105–152; BP diastolic 47–88; PULSE 47–58; RESP 16; TEMP 36.5; O2SAT 97–100
--- NOTE | 2019-02-04 12:33 | DI.CT_ITS ---
SYMPTOMS/DIAGNOSIS: SEIZURE-LIKE ACTIVITY, LEFT UPPER EXTREMITY, H/O CANCER WITH BRAIN METASTASES NONCONTRAST HEAD CT: Comparison is made with December,. A large area of low attenuation is again noted in the right frontal and parietal lobes. No acute infarct or hemorrhage is seen. There is mild underlying atrophy. The ventricles are unchanged in size. There is no evidence of skull fracture. The sinuses and mastoid air cells are unremarkable. IMPRESSION: Stable area of frontoparietal encephalomalacia. No acute abnormality.
--- NOTE | 2019-02-04 12:49 | ED.GENADUL_ITS ---
Discharge Plan Disposition Patient Disposition: HOME Condition: Improving Discharge Details Chief Complaint: Seizure Clinical Impression: Brain cancer, Focal motor epilepsy Primary Care Provider: Eulogio Eaton ED Provider: Abdelrahman Sandoval Home Meds and New Rx's Prescriptions: Continued atorvastatin 80 mg Tablet 80 mg PO QPM RF: 0 Lantus U-100 Insulin 100 unit/mL Solution 20 unit SUBCUT DAILY RF: 0 famotidine 20 mg Tablet 20 mg PO BID RF: 0 nitroglycerin 0.4 mg Tablet, Sublingual 0.4 mg SUBLINGUAL Q5-15M PRNRF: 0 furosemide 20 mg Tablet 20 mg PO DAILY PRNRF: 0 nystatin 100,000 unit/gram Powder 1 applic TOPICAL BID RF: 0 Caltrate 600-D Plus Minerals 600 mg calcium- 800 unit-50 mg Tablet 1 tab PO DAILY RF: 0 levetiracetam [Keppra] 1,000 mg tablet 1,000 mg PO BID Qty: 60 RF: 0 dexamethasone 4 mg tablet 4 mg PO BID Qty: 60 RF: 0 levetiracetam [Keppra] 500 mg tablet 500 mg PO BID Qty: 60 RF: 0 multivitamin Tablet See Rx Instructions .ROUTE .COMPLEX RF: 0 Januvia 25 mg Tablet 100 mg PO DAILY RF: 0 Discharge Instructions Instructions: Recurrent Seizures in Adults (ED) Additional Instructions: Please take your medication as prescribed and increase your oral intake of potassium rich foods given that your potassium was slightly low today. For the lower extremity swelling that you are noting please take your Lasix also as prescribed. Return to the emergency department for any new or significant worsening of symptoms or any further concerns otherwise keep your appointment as scheduled next week with Dr. Joe. Referrals: Dalton Joe MD [ CONSULTING PHYSICIAN] - (Keep your appointment as scheduled) Discharge Data Discharge Date/Time-TO BE ENTERED AT DEPARTURE: 02/04/19 15:02 Medical Decision Making Patient presenting the emergency department for chief complaint of focal left upper extremity seizure. Patient states this is identical to previous episodes. She does state that she was up later last night than normal and did not take her Keppra dose this morning but took it approximately 5 hours later just before the event occurred. Patient has history of breast cancer with metastasis to brain. Patient is on undergoing oncology treatment and has already had radiation therapy. Patient states that symptoms occurred approximately 1 hour ago. Physical exam now shows cranial nerves II through XII intact, left upper extremity weakness that is at baseline per patient and family, no other focal neurological deficits or worrisome physical exam findings. Feel that patient's focal seizure may be due to mild sleep deprivation along with delayed medication dose but plan to check labs and CT imaging. Review of labs show mild thrombocytopenia otherwise non-worrisome CBC, CMP shows potassium 3.4, slightly elevated BUN but creatinine within normal range, glucose and ALT slightly elevated as well. Head CT reviewed and interpreted by radiologist shows no significant changes compared to previous CT that was performed 12/31/2018. Called and spoke with neurologist at [facility] Dr. Craven who recommended either having patient continue her medications as prescribed and following up with neurology as recommended or if seizure was worrisome to patient or family that consideration of adding Topamax could be made. Did discuss with patient this option which at this time given risk versus benefit she stated that she would prefer not to take any additional meds. I feel this is reasonable. Return precautions were discussed otherwise patient is already scheduled to follow-up with Dr. Joe later this week. After discussion of diagnosis and plan of care patient has no further needs, questions, or concerns and states clear understanding to return to the emergency department for any worsening symptoms. HPI General Mode of arrival: ambulatory . Date/Time Provider Initiated Documentation: 02/04/19 12:31 . Limitations to Documentation: no limitations . Information obtained by: patient, family, RN notes reviewed and old records reviewed . History of Present Illness 68 year old F presents to the emergency department with the chief complaint of Seizure-like activity, described as similar to prior episodes, Quality is described as other (Denies any pain or discomfort), and is localized to the left and upper extremity. Patient started experiencing this hour(s) (1) and it has been now resolved. Patient notes no other symptoms.. Patient did receive the following treatments prior to arrival, none Related Data Home Medications Medication Instructions Recorded Confirmed Januvia 100 mg PO DAILY 09/17/18 02/04/19 atorvastatin 80 mg PO QPM 10/07/18 02/04/19 Caltrate 600-D Plus Minerals 1 tab PO DAILY 12/20/18 02/04/19 Lantus U-100 Insulin 20 unit SUBCUT DAILY 12/20/18 02/04/19 famotidine 20 mg PO BID 12/20/18 02/04/19 furosemide 20 mg PO DAILY PRN 12/20/18 02/04/19 nitroglycerin 0.4 mg SUBLINGUAL Q5-15M PRN 12/20/18 02/04/19 nystatin 1 applic TOPICAL BID 12/20/18 02/04/19 dexamethasone 4 mg PO BID #60 tab 12/22/18 02/04/19 levetiracetam [Keppra] 1,000 mg PO BID #60 tab 12/22/18 02/04/19 levetiracetam [Keppra] 500 mg PO BID #60 tab 12/31/18 02/04/19 multivitamin See Rx Instructions .ROUTE .COMPLEX 02/04/19 02/04/19 Previous Rx's Medication Instructions Recorded dexamethasone 4 mg PO BID #60 tab 12/22/18 levetiracetam [Keppra] 1,000 mg PO BID #60 tab 12/22/18 levetiracetam [Keppra] 500 mg PO BID #60 tab 12/31/18 Allergies Allergy/AdvReac Type Severity Reaction Status Date / Time nickel Allergy Unverified 12/31/18 17:38 Sulfa (Sulfonamide Allergy Unverified 12/31/18 17:38 Antibiotics) codeine [Codeine] AdvReac Nausea Unverified 12/31/18 17:38 General Stated Complaint: Seizure KATHERINE: 3 Review of Systems Constitutional Denies body ache(s), Denies chills, Denies fever(s) and Denies headache(s) Eyes Denies change in vision ENT Denies dizziness and Denies headache(s) Cardiovascular Denies chest pain and Denies syncope Gastrointestinal Reports nausea and Reports vomiting Neurologic Reports as per HPI, Denies confusion, Denies dizziness, Denies syncope, Denies headache(s), Reports focal weakness (Left upper and lower extremity - at baseline), Reports seizure-like activity and Denies sensory deficit Psychiatric Denies confusion [facility] Medical History Ataxia (Acute) Breast cancer (Chronic) Breast cancer metastasized to bone (Acute) Breast cancer metastasized to brain (Acute) Counseling regarding advance directives and goals of care (Acute) Ex-smoker (Acute) Focal motor epilepsy (Acute) Heart disease (Acute) Hyperlipidemia (Acute) Hypertension (Chronic) IDDM (insulin dependent diabetes mellitus) (Chronic) Metastatic cancer to brain (Acute) Osteopenia (Acute) Palliative care patient (Acute) Seizure (Acute) Surgical History H/O partial mastectomy (Acute) Family History Sister Epilepsy Son No problems noted. Daughter No problems noted. Mother , age 60 metastatic breast cancer; to bone Breast cancer Father , age 83 from both lung and prostate cancer Lung cancer Prostate cancer Social History Smoking/Tobacco Use Status: Former Tobacco Use Alcohol Intake: never Drug use: Never Substance use type: does not use Caregiver/Support person: Yes Household members: spouse Housing: house Number of Children: 2 number of grandchildren: 7 Communication Needs: Corrective Lenses Education Level: high school Do you need help understanding health information?: Always current occupation: was working for [employer] in [place] when diagnosed; out on disability Pets and animals: Yes What is your relationship status?: How often do you talk on the phone with friends or family?: three or more times per week How often do you get together with friends or relatives?: three or more times per week Panel score (0-1 are the most socially isolated patients): 2 What type of physical activity do you participate in: walking and sedentary lifestyle Duration: < 15 minutes/day Frequency: 5-6 times per week Special damien needs: No Agree to transfusion: Yes Seatbelt use: always Fire extinguisher in home: Yes Do you feel safe at home: Yes Do you feel safe in your relationship?: Yes Additional Social history: to Sharon x 33 years currently living with her daughter in [place] as her house is not handicapped-accessible she fell once down the stairs at her home and worries she will fall again Exam Const General: cooperative, healthy appearing, no acute distress and well groomed Orientation: alert, awake and oriented x3 HENMT Head: normal to inspection Ears: hearing grossly normal bilaterally and TM's normal bilaterally Mouth: oral mucosae normal and moist mucous membranes Throat: posterior oropharynx normal Eyes Visual Rodriguez: normal visual rodriguez by confrontation Alignment and Position: alignment normal Periorbital: periorbital findings normal Eyelids: eyelids normal Sclera: sclerae normal Cornea: corneas normal Pupils: PERRL EOM: EOM intact bilaterally Neck Neck: normal visual inspection, full ROM, no lymphadenopathy and no meningeal signs Resp Effort & Inspection: normal respiratory effort and able to speak in complete sentences Auscultation: clear to auscultation bilaterally Cardio Rate: regular rate Rhythm: regular rhythm Heart Sounds: S1 normal and S2 normal Neuro General: alert, awake, oriented x3, gait normal, tone normal, moves all extremities, CN's II-XI intact bilaterally and not confused Cognition: normal cognition Speech: speech normal Motor: no pronator drift, no movement abnormalities noted, no fasciculations and strength abnormal (Generalized weakness in comparison to right) left upper extremity Sensory Exam: no sensory deficits noted Course Vital Signs Temperature 36.5 C 02/04/19 12:26 Pulse 58 L 02/04/19 12:26 Respiratory Rate 16 02/04/19 12:26 Blood Pressure 152/64 H 02/04/19 12:26 Pulse Oximetry 98 02/04/19 12:26 Temperature 36.5 C 02/04/19 12:26 Temperature Source Skin 02/04/19 12:26 Pulse 58 L 02/04/19 12:26 Respiratory Rate 16 02/04/19 12:26 Blood Pressure 152/64 H 02/04/19 12:26 Blood Pressure Position Sitting 02/04/19 12:26 Pulse Oximetry 98 02/04/19 12:26 Oxygen Delivery Method Room Air 02/04/19 12:26 Oxygen Flow Rate 0 02/04/19 12:26 Pain Level 0 02/04/19 12:26
[2019-02-04 13:04] LABS: Abs Immature Grans 0.06 k/cumm (0.0-0.09); Absolute Basophil Count 0.01 k/cumm (0.0-0.2); Absolute Eosinophil Count 0.06 k/cumm (0.0-0.7); Absolute Lymphocyte Count 1.18 k/cumm (1.2-3.4); Absolute Monocyte Count 0.25 k/cumm (0.11-0.7); Absolute Neutrophil Count 4.24 k/cumm (1.2-6.7); Basophils % 0.2; HCT 44.8 % (36.0-46.0); HGB 15.2 g/dL (12.0-15.5); Lymphocytes % 20.3; Mean Corp. HGB Concentration 33.9 g/dL (32.0-36.0); Mean Corpuscular Hemoglobin 32.4 pg (27.0-33.0); Mean Corpuscular Volume 95.5 fL (80-95); Mean Platelet Volume 9.5 fL (8.0-11.0); Monocytes % 4.3; Neutrophils % 73.2; Platelet Count 122 x1000/uL (130-400); RBC 4.69 m/cumm (4.00-5.20); RBC Distribution Width 14.3 % (11.7-14.6)
[2019-02-04 13:16] LABS: PTT Activated 17.8 sec (21.0-31.4); Prothrombin Time 9.6 sec (9.3-11.0)
[2019-02-04 13:18] LABS: ALT 156 U/L (14-59); AST 26 U/L (15-37); Albumin 3.6 g/dL (3.4-5.0); Alkaline Phosphatase 80 U/L (46-116); Anion Gap 8.1 mmol/L (3-11); BUN 28 mg/dL (7-18); Bilirubin, Total 0.9 mg/dL (0.2-1.0); CO2 29.9 mmol/L (21.0-32.0); CREATININE 0.84 mg/dL (0.55-1.02); Calcium 8.5 mg/dL (8.5-10.1); Chloride 105 mmol/L (98-107); Glucose 152 mg/dL (70-100); Potassium 3.4 mmol/L (3.5-5.1); Sodium 143 mmol/L (136-145); Total Protein 7.2 g/dL (6.4-8.2)
--- NOTE | 2019-02-04 14:00 | NUR.NOTE ---
Nursing Note: Pt encourged to give urine sample. states that she is unable to at this time.
--- NOTE | 2019-02-04 14:12 | DI.VRAD_ITS ---
EXAM: CT Head Without Contrast EXAM DATE/TIME: 02/04/2019 12:35 PM CLINICAL HISTORY: 68 years old, female; Other: Seizure like activity, left upper extremity TECHNIQUE: Imaging protocol: Computed tomography of the head without contrast. Radiation optimization: All CT scans at this facility use at least one of these dose optimization techniques: automated exposure control; mA and/or kV adjustment per patient size (includes targeted exams where dose is matched to clinical indication); or iterative reconstruction. COMPARISON: CT HEAD WO 12/31/2018 6:27 PM FINDINGS: Brain: There is no evidence for acute intracranial hemorrhage. A previously seen area of decreased attenuation in the right frontal and parietal lobes is again noted. The pattern could be consistent with vasogenic edema. No discrete underlying lesion is evident. There is mild cortical volume loss. There is no significant sulcal effacement. Ventricles: Normal. No ventriculomegaly. Bones/joints: Unremarkable. No acute fracture. Sinuses: Visualized sinuses are unremarkable. No fluid levels. Mastoid air cells: Visualized mastoid air cells are well aerated. Soft tissues: Unremarkable. IMPRESSION: No significant change from most recent exam. Present vasogenic edema at the right frontoparietal convexity is again noted. If there is clinical concern for active underlying process, MRI with and without gadolinium enhancement could be considered. COMMENT: Preliminary interpretation is based on receipt of 344 image(s). A final report will be issued subsequently. Dictated and Authenticated by: Susan Wu MD. Ordering:HANNAH Quick MD
--- NOTE | 2019-02-04 15:03 | NUR.NOTE ---
Nursing Note: pt alert/oriented/ambulatory. d/c to home, instructions reviewed. emphasis on the importance of prompt follow up care. understanding verbalized. VSS IV REMOVED
[2019-02-06 15:08] LABS: Levetiracetam 46.1 mcg/mL
== END 2019-02-04 15:02 | disposition home or self-care (01) ==
PROVIDERS: Emergency Provider Nurse Practitioner Family; PCP Family Medicine
DX: C79.31 Secondary malignant neoplasm of brain (principal); G40.109 Localization-related (focal) (partial) symptomatic epilepsy and epileptic syndromes with simple partial seizures, not intractable, without status epilepticus; E87.6 Hypokalemia; R60.0 Localized edema; I10 Essential (primary) hypertension; E11.9 Type 2 diabetes mellitus without complications; Z79.4 Long term (current) use of insulin; Z51.5 Encounter for palliative care
CPT/HCPCS: 36415; 80053; 99284; 70450; 80177; 81003; 85025; 85610; 85730

== ENCOUNTER 2019-02-09 14:23 | Outpatient (CLI) | payer MEDICARE, SELFPAY ==
[2019-02-09 15:10] LABS: Abs Immature Grans 0.04 k/cumm (0.0-0.09); Absolute Basophil Count 0.01 k/cumm (0.0-0.2); Absolute Eosinophil Count 0.01 k/cumm (0.0-0.7); Absolute Lymphocyte Count 0.78 k/cumm (1.2-3.4); Absolute Monocyte Count 0.28 k/cumm (0.11-0.7); Absolute Neutrophil Count 3.65 k/cumm (1.2-6.7); Basophils % 0.2; Eosinophils % 0.2; HCT 41.5 % (36.0-46.0); HGB 14.3 g/dL (12.0-15.5); Immature Grans % 0.8; Lymphocytes % 16.4; Mean Corp. HGB Concentration 34.5 g/dL (32.0-36.0); Mean Corpuscular Hemoglobin 32.5 pg (27.0-33.0); Mean Corpuscular Volume 94.3 fL (80-95); Mean Platelet Volume 9.6 fL (8.0-11.0); Monocytes % 5.9; Neutrophils % 76.5; Platelet Count 129 x1000/uL (130-400); RBC Distribution Width 14.2 % (11.7-14.6); White Blood Cell Count 4.77 k/cumm (4.4-10.8)
[2019-02-09 15:47] LABS: ALT 103 U/L (14-59); AST 15 U/L (15-37); Albumin 3.1 g/dL (3.4-5.0); Alkaline Phosphatase 70 U/L (46-116); Anion Gap 7.9 mmol/L (3-11); BUN 37 mg/dL (7-18); Bilirubin, Total 0.6 mg/dL (0.2-1.0); CO2 30.1 mmol/L (21.0-32.0); Calcium 8.9 mg/dL (8.5-10.1); Chloride 104 mmol/L (98-107); Estimated GFR 54.97 (mL/min/1.73m2); Glucose 181 mg/dL (70-100); Potassium 3.8 mmol/L (3.5-5.1); Sodium 142 mmol/L (136-145); Total Protein 6.1 g/dL (6.4-8.2)
[2019-02-10 15:29] LABS: Cancer Ag 15-3 20 U/mL (<30)
[2019-02-14 11:20] LABS: 1,25-Dihydroxyvitamin D 28 pg/mL (18-78)
== END 2019-02-09 14:43 ==
PROVIDERS: PCP Family Medicine; Visit Provider Internal Medicine Hematology & Oncology
DX: C50.919 Malignant neoplasm of unspecified site of unspecified female breast (principal); C77.1 Secondary and unspecified malignant neoplasm of intrathoracic lymph nodes; E55.9 Vitamin D deficiency, unspecified; M85.80 Other specified disorders of bone density and structure, unspecified site
CPT/HCPCS: 36415; 80053; 86304; 82652; 85025; 86300

== ENCOUNTER 2019-02-23 09:43 | Outpatient (CLI) | payer MEDICARE, SELFPAY ==
[2019-02-23 10:10] LABS: HCT 40.4 % (36.0-46.0); Mean Corp. HGB Concentration 34.7 g/dL (32.0-36.0); Mean Corpuscular Hemoglobin 32.6 pg (27.0-33.0); Mean Corpuscular Volume 94.2 fL (80-95); Mean Platelet Volume 9.2 fL (8.0-11.0); Platelet Count 169 x1000/uL (130-400); RBC 4.29 m/cumm (4.00-5.20); RBC Distribution Width 14.5 % (11.7-14.6); White Blood Cell Count 6.37 k/cumm (4.4-10.8)
[2019-02-23 10:25] LABS: ALT 118 U/L (14-59); AST 17 U/L (15-37); Albumin 3.4 g/dL (3.4-5.0); Alkaline Phosphatase 59 U/L (46-116); Anion Gap 10.5 mmol/L (3-11); BUN 25 mg/dL (7-18); Bilirubin, Total 0.9 mg/dL (0.2-1.0); CO2 31.5 mmol/L (21.0-32.0); CREATININE 0.65 mg/dL (0.55-1.02); Calcium 8.9 mg/dL (8.5-10.1); Chloride 100 mmol/L (98-107); Glucose 160 mg/dL (70-100); Potassium 3.7 mmol/L (3.5-5.1); Sodium 142 mmol/L (136-145); Total Protein 6.6 g/dL (6.4-8.2)
[2019-02-23 10:53] LABS: Absolute Lymphocyte Count 1.08 k/cumm (1.2-3.4); Absolute Monocyte Count 0.51 k/cumm (0.11-0.7); Absolute Neutrophil Count 4.33 k/cumm (1.2-6.7); Atypical Lymphocytes % 1; RBC Morphology Normal
[2019-02-23 10:54] LABS: Diff Comment Manual Differential
== END 2019-02-23 10:03 ==
PROVIDERS: PCP Family Medicine; Visit Provider Internal Medicine Hematology & Oncology
DX: C50.919 Malignant neoplasm of unspecified site of unspecified female breast (principal); C77.1 Secondary and unspecified malignant neoplasm of intrathoracic lymph nodes; E55.9 Vitamin D deficiency, unspecified; M85.80 Other specified disorders of bone density and structure, unspecified site
CPT/HCPCS: 36415; 80053; 82652; 85025

== ENCOUNTER 2019-03-09 13:33 | Outpatient (REF) | payer MEDICARE, SELFPAY ==
[2019-03-09 14:40] LABS: Abs Immature Grans 0.51 k/cumm (0.0-0.09); HCT 38.4 % (36.0-46.0); HGB 13.5 g/dL (12.0-15.5); Mean Corp. HGB Concentration 35.2 g/dL (32.0-36.0); Mean Corpuscular Hemoglobin 33.2 pg (27.0-33.0); Mean Corpuscular Volume 94.3 fL (80-95); Mean Platelet Volume 10.4 fL (8.0-11.0); RBC 4.07 m/cumm (4.00-5.20); RBC Distribution Width 15.2 % (11.7-14.6)
[2019-03-09 14:48] LABS: ALT 160 U/L (14-59); AST 31 U/L (15-37); Albumin 3.5 g/dL (3.4-5.0); Alkaline Phosphatase 61 U/L (46-116); Anion Gap 8.2 mmol/L (3-11); BUN 24 mg/dL (7-18); Bilirubin, Total 0.7 mg/dL (0.2-1.0); CO2 31.8 mmol/L (21.0-32.0); Calcium 8.6 mg/dL (8.5-10.1); Chloride 97 mmol/L (98-107); Glucose 197 mg/dL (70-100); Potassium 3.8 mmol/L (3.5-5.1); Sodium 137 mmol/L (136-145); Total Protein 6.8 g/dL (6.4-8.2)
[2019-03-09 14:59] LABS: Absolute Eosinophil Count 0.11 k/cumm (0.0-0.7); Absolute Monocyte Count 0.89 k/cumm (0.11-0.7); Absolute Neutrophil Count 8.66 k/cumm (1.2-6.7); Diff Comment Manual Differential; Platelet Count 178 x1000/uL (130-400)
[2019-03-09 15:00] LABS: Anisocytosis 1+; Polychromasia Present
[2019-03-10 17:03] LABS: Cancer Ag 15-3 26 U/mL (<30)
== END 2019-03-09 13:53 ==
LOC: LBN 13:33
PROVIDERS: PCP Family Medicine; Visit Provider Internal Medicine Hematology & Oncology
DX: C71.1 Malignant neoplasm of frontal lobe (principal); C50.919 Malignant neoplasm of unspecified site of unspecified female breast; G40.89 Other seizures; C34.91 Malignant neoplasm of unspecified part of right bronchus or lung; E11.65 Type 2 diabetes mellitus with hyperglycemia; Z79.52 Long term (current) use of systemic steroids
CPT/HCPCS: 80053; 86304; 85025; 86300

== ENCOUNTER 2019-03-10 13:24 | Outpatient (REF) | payer MEDICARE, SELFPAY ==
[2019-03-10 14:16] LABS: Bilirubin Negative (Negative); Blood Negative (Negative); Clarity Clear (Clear); Glucose Negative (Negative); Ketones Negative (Negative); Leukocyte Esterase Trace (Negative); Nitrite Positive (Negative); Urobilinogen 0.2 EU/dL (Up TO 0.2)
[2019-03-10 14:53] LABS: Bacteria Moderate HPF (Negative); Crystals Negative HPF (Negative); Epithelial Cells Moderate HPF (Negative); RBC 0-2 (0-2)
[2019-03-10 14:54] LABS: C & S Indicated? Yes; Casts Negative LPF (Negative); Mucus Trace (Negative)
== END 2019-03-10 13:44 ==
LOC: LBN 13:24
PROVIDERS: PCP Family Medicine; Visit Provider Internal Medicine Hematology & Oncology
DX: D72.829 Elevated white blood cell count, unspecified (principal)
CPT/HCPCS: 87077; 81003; 81015; 87086; 87186

== ENCOUNTER 2019-03-23 12:42 | Outpatient (REF) | payer MEDICARE, SELFPAY ==
[2019-03-23 13:07] LABS: Abs Immature Grans 0.23 k/cumm (0.0-0.09); Absolute Basophil Count 0.02 k/cumm (0.0-0.2); Absolute Eosinophil Count 0.06 k/cumm (0.0-0.7); Absolute Lymphocyte Count 0.66 k/cumm (1.2-3.4); Absolute Monocyte Count 0.62 k/cumm (0.11-0.7); Absolute Neutrophil Count 7.69 k/cumm (1.2-6.7); Basophils % 0.2; Eosinophils % 0.6; HCT 35.9 % (36.0-46.0); HGB 12.1 g/dL (12.0-15.5); Immature Grans % 2.5; Lymphocytes % 7.1; Mean Corp. HGB Concentration 33.7 g/dL (32.0-36.0); Mean Corpuscular Hemoglobin 32.5 pg (27.0-33.0); Mean Corpuscular Volume 96.5 fL (80-95); Mean Platelet Volume 10.4 fL (8.0-11.0); Monocytes % 6.7; Neutrophils % 82.9; Platelet Count 181 x1000/uL (130-400); RBC 3.72 m/cumm (4.00-5.20); RBC Distribution Width 16.3 % (11.7-14.6); White Blood Cell Count 9.28 k/cumm (4.4-10.8)
[2019-03-23 13:32] LABS: ALT 80 U/L (14-59); AST 23 U/L (15-37); Albumin 3.2 g/dL (3.4-5.0); Alkaline Phosphatase 67 U/L (46-116); Anion Gap 8.5 mmol/L (3-11); BUN 31 mg/dL (7-18); Bilirubin, Total 0.7 mg/dL (0.2-1.0); CO2 30.5 mmol/L (21.0-32.0); CREATININE 0.78 mg/dL (0.55-1.02); Calcium 8.9 mg/dL (8.5-10.1); Chloride 101 mmol/L (98-107); Glucose 240 mg/dL (70-100); Potassium 4.1 mmol/L (3.5-5.1); Sodium 140 mmol/L (136-145); Total Protein 6.3 g/dL (6.4-8.2)
[2019-03-24 15:22] LABS: Cancer Ag 15-3 29 U/mL (<30)
== END 2019-03-23 13:02 ==
LOC: LBN 12:42
PROVIDERS: PCP Family Medicine; Visit Provider Internal Medicine Hematology & Oncology
DX: E11.65 Type 2 diabetes mellitus with hyperglycemia (principal); D49.6 Neoplasm of unspecified behavior of brain; C50.912 Malignant neoplasm of unspecified site of left female breast
CPT/HCPCS: 80053; 86304; 85025; 86300

== ENCOUNTER 2019-04-06 19:30 | Outpatient (REF) | payer MEDICARE, SELFPAY ==
[2019-04-06 13:09] LABS: Abs Immature Grans 0.15 k/cumm (0.0-0.09); Absolute Basophil Count 0.02 k/cumm (0.0-0.2); Absolute Eosinophil Count 0.01 k/cumm (0.0-0.7); Absolute Lymphocyte Count 0.51 k/cumm (1.2-3.4); Absolute Monocyte Count 0.43 k/cumm (0.11-0.7); Absolute Neutrophil Count 6.17 k/cumm (1.2-6.7); Basophils % 0.3; Eosinophils % 0.1; HCT 36.2 % (36.0-46.0); Immature Grans % 2.1; Mean Corp. HGB Concentration 33.1 g/dL (32.0-36.0); Mean Corpuscular Hemoglobin 33.1 pg (27.0-33.0); Mean Platelet Volume 10.1 fL (8.0-11.0); Monocytes % 5.9; Neutrophils % 84.6; Platelet Count 170 x1000/uL (130-400); RBC 3.62 m/cumm (4.00-5.20); RBC Distribution Width 17.5 % (11.7-14.6); White Blood Cell Count 7.29 k/cumm (4.4-10.8)
[2019-04-06 13:21] LABS: ALT 70 U/L (14-59); AST 13 U/L (15-37); Albumin 3.2 g/dL (3.4-5.0); Alkaline Phosphatase 76 U/L (46-116); Anion Gap 9.9 mmol/L (3-11); BUN 18 mg/dL (7-18); Bilirubin, Total 0.7 mg/dL (0.2-1.0); CO2 27.1 mmol/L (21.0-32.0); CREATININE 0.65 mg/dL (0.55-1.02); Calcium 8.8 mg/dL (8.5-10.1); Chloride 101 mmol/L (98-107); Glucose 345 mg/dL (70-100); Potassium 4.7 mmol/L (3.5-5.1); Sodium 138 mmol/L (136-145); Total Protein 6.1 g/dL (6.4-8.2)
== END 2019-04-06 19:50 ==
LOC: LBN 19:30
PROVIDERS: PCP Family Medicine; Visit Provider Internal Medicine Hematology & Oncology
DX: C50.912 Malignant neoplasm of unspecified site of left female breast (principal); C79.31 Secondary malignant neoplasm of brain
CPT/HCPCS: 80053; 85025

== ENCOUNTER 2019-04-20 21:34 | Outpatient (REF) | payer MEDICARE, SELFPAY ==
[2019-04-20 12:57] LABS: Abs Immature Grans 0.12 k/cumm (0.0-0.09); Absolute Basophil Count 0.03 k/cumm (0.0-0.2); Absolute Eosinophil Count 0.03 k/cumm (0.0-0.7); Absolute Lymphocyte Count 0.88 k/cumm (1.2-3.4); Absolute Neutrophil Count 6.39 k/cumm (1.2-6.7); Basophils % 0.4; Eosinophils % 0.4; HGB 12.2 g/dL (12.0-15.5); Immature Grans % 1.5; Lymphocytes % 10.8; Mean Corp. HGB Concentration 32.1 g/dL (32.0-36.0); Mean Corpuscular Hemoglobin 32.6 pg (27.0-33.0); Mean Corpuscular Volume 101.6 fL (80-95); Mean Platelet Volume 9.9 fL (8.0-11.0); Monocytes % 8.6; Neutrophils % 78.3; Platelet Count 184 x1000/uL (130-400); RBC 3.74 m/cumm (4.00-5.20); White Blood Cell Count 8.15 k/cumm (4.4-10.8)
[2019-04-20 13:05] LABS: ALT 68 U/L (14-59); AST 14 U/L (15-37); Albumin 3.3 g/dL (3.4-5.0); Alkaline Phosphatase 60 U/L (46-116); Anion Gap 10.6 mmol/L (3-11); BUN 17 mg/dL (7-18); Bilirubin, Total 0.7 mg/dL (0.2-1.0); CO2 28.4 mmol/L (21.0-32.0); CREATININE 0.54 mg/dL (0.55-1.02); Chloride 105 mmol/L (98-107); Glucose 199 mg/dL (70-100); Potassium 3.7 mmol/L (3.5-5.1); Sodium 144 mmol/L (136-145); Total Protein 6.1 g/dL (6.4-8.2)
[2019-04-21 16:32] LABS: Cancer Ag 15-3 34 U/mL (<30)
== END 2019-04-20 21:54 ==
LOC: LBN 21:34
PROVIDERS: PCP Family Medicine; Visit Provider Internal Medicine Hematology & Oncology
DX: C50.912 Malignant neoplasm of unspecified site of left female breast (principal); C79.31 Secondary malignant neoplasm of brain
CPT/HCPCS: 80053; 86304; 85025; 86300

== ENCOUNTER 2019-05-03 12:41 | Outpatient (REF) | payer MEDICARE, SELFPAY ==
[2019-05-03 11:17] LABS: Abs Immature Grans 0.11 k/cumm (0.0-0.09); Absolute Basophil Count 0.03 k/cumm (0.0-0.2); Absolute Eosinophil Count 0.09 k/cumm (0.0-0.7); Absolute Lymphocyte Count 1.51 k/cumm (1.2-3.4); Absolute Monocyte Count 0.58 k/cumm (0.11-0.7); Absolute Neutrophil Count 3.81 k/cumm (1.2-6.7); Basophils % 0.5; Eosinophils % 1.5; HCT 37.9 % (36.0-46.0); HGB 12.1 g/dL (12.0-15.5); Immature Grans % 1.8; Lymphocytes % 24.6; Mean Corp. HGB Concentration 31.9 g/dL (32.0-36.0); Mean Corpuscular Hemoglobin 32.4 pg (27.0-33.0); Mean Corpuscular Volume 101.6 fL (80-95); Mean Platelet Volume 10.3 fL (8.0-11.0); Monocytes % 9.5; Neutrophils % 62.1; Platelet Count 181 x1000/uL (130-400); RBC 3.73 m/cumm (4.00-5.20); White Blood Cell Count 6.13 k/cumm (4.4-10.8)
[2019-05-03 12:02] LABS: ALT 63 U/L (14-59); AST 19 U/L (15-37); Albumin 3.3 g/dL (3.4-5.0); Alkaline Phosphatase 57 U/L (46-116); BUN 15 mg/dL (7-18); Bilirubin, Total 0.6 mg/dL (0.2-1.0); CREATININE 0.57 mg/dL (0.55-1.02); Calcium 8.5 mg/dL (8.5-10.1); Chloride 108 mmol/L (98-107); Glucose 162 mg/dL (74-106); Potassium 3.8 mmol/L (3.5-5.1); Sodium 147 mmol/L (136-145)
[2019-05-05 13:30] LABS: Cancer Ag 15-3 32 U/mL (<30)
== END 2019-05-03 13:01 ==
LOC: LBN 12:41
PROVIDERS: PCP Family Medicine; Visit Provider Internal Medicine Hematology & Oncology
DX: C50.912 Malignant neoplasm of unspecified site of left female breast (principal); C79.31 Secondary malignant neoplasm of brain
CPT/HCPCS: 80053; 86304; 85025; 86300

== ENCOUNTER 2019-05-10 09:21 | Outpatient (REF) | payer MEDICARE, SELFPAY ==
[2019-05-10 10:25] LABS: Abs Immature Grans 0.06 k/cumm (0.0-0.09); Absolute Basophil Count 0.03 k/cumm (0.0-0.2); Absolute Eosinophil Count 0.07 k/cumm (0.0-0.7); Absolute Lymphocyte Count 1.59 k/cumm (1.2-3.4); Absolute Monocyte Count 0.57 k/cumm (0.11-0.7); Absolute Neutrophil Count 3.77 k/cumm (1.2-6.7); Basophils % 0.5; Eosinophils % 1.1; HCT 37.8 % (36.0-46.0); HGB 12.1 g/dL (12.0-15.5); Lymphocytes % 26.1; Mean Corpuscular Hemoglobin 32.4 pg (27.0-33.0); Mean Corpuscular Volume 101.3 fL (80-95); Mean Platelet Volume 10.1 fL (8.0-11.0); Monocytes % 9.4; Neutrophils % 61.9; Platelet Count 199 x1000/uL (130-400); RBC 3.73 m/cumm (4.00-5.20); RBC Distribution Width 14.6 % (11.7-14.6); White Blood Cell Count 6.09 k/cumm (4.4-10.8)
[2019-05-10 10:43] LABS: ALT 59 U/L (14-59); AST 22 U/L (15-37); Albumin 3.2 g/dL (3.4-5.0); Alkaline Phosphatase 45 U/L (46-116); Anion Gap 9.1 mmol/L (3-11); BUN 12 mg/dL (7-18); Bilirubin, Total 0.5 mg/dL (0.2-1.0); CO2 28.9 mmol/L (21.0-32.0); CREATININE 0.54 mg/dL (0.55-1.02); Calcium 8.6 mg/dL (8.5-10.1); Chloride 110 mmol/L (98-107); Glucose 102 mg/dL (74-106); Potassium 3.9 mmol/L (3.5-5.1); Sodium 148 mmol/L (136-145); Total Protein 5.8 g/dL (6.4-8.2)
[2019-05-11 14:56] LABS: Cancer Ag 15-3 29 U/mL (<30)
== END 2019-05-10 09:41 ==
LOC: LBN 09:21
PROVIDERS: PCP Family Medicine; Visit Provider Internal Medicine Hematology & Oncology
DX: C50.912 Malignant neoplasm of unspecified site of left female breast (principal); C79.31 Secondary malignant neoplasm of brain
CPT/HCPCS: 80053; 86304; 85025; 86300

== ENCOUNTER 2019-05-23 09:05 | Outpatient (CLI) | payer MEDICARE, MEDICAID, SELFPAY ==
[2019-05-23 10:51] LABS: ALT 64 U/L (14-59); AST 26 U/L (15-37); Albumin 3.4 g/dL (3.4-5.0); Alkaline Phosphatase 45 U/L (46-116); Anion Gap 9.3 mmol/L (3-11); BUN 14 mg/dL (7-18); Bilirubin, Total 0.5 mg/dL (0.2-1.0); CO2 29.7 mmol/L (21.0-32.0); CREATININE 0.55 mg/dL (0.55-1.02); Calcium 9.2 mg/dL (8.5-10.1); Chloride 108 mmol/L (98-107); Glucose 177 mg/dL (74-106); Potassium 3.8 mmol/L (3.5-5.1); Sodium 147 mmol/L (136-145); Total Protein 6.3 g/dL (6.4-8.2)
--- NOTE | 2019-05-23 11:16 | DI.CT_ITS ---
EXAM: CT CHEST PE CTA CLINICAL HISTORY: BREAST CANCER METASTASIZED TO MULTIPLE SITES C50.912, DYSPNEA, R60.00 TECHNIQUE: Post IV contrast PE protocol. Axial CT angiography was performed with multi-slice acquisition and multi-planar and/or 3D reconstruc tions. COMPARISON: UPPER ABD WITH CONTRAST (P) from 06/17/2009. There are no prior chest CT's FINDINGS: Filling defects are seen in the left upper and lower lobe pulmonary arteries as well as right upper, lower and middle lobe pulmonary arteries. The emboli are partially occluding. Thrombus extends into t he left main pulmonary artery but does not cross the midline. There are no pleural or pericardial eff usions. There is mild cardiac enlargement. The aorta appears intact and shows calcification. The exam is performed during expiration and there is respiratory motion. No gross infiltrates or pulmonary no dules are seen. There is no adenopathy. Visualized portions of the upper liver and spleen are grossly unremarkable. No compression fractures are seen in the spine. There are no gross lytic or blastic le sions in the thoracic spine. IMPRESSION: Bilateral upper and lower lobe pulmonary emboli.
[2019-05-23] MEDS: Omnipaque 350 MG/ML 100 ML BTL IJ (11:25)
== END 2019-05-23 09:25 ==
PROVIDERS: PCP Family Medicine; Visit Provider Internal Medicine Hematology & Oncology
DX: C50.912 Malignant neoplasm of unspecified site of left female breast (principal); C79.31 Secondary malignant neoplasm of brain; R60.0 Localized edema; I26.99 Other pulmonary embolism without acute cor pulmonale; I51.7 Cardiomegaly
CPT/HCPCS: 71275; 80053; J3490

== ENCOUNTER 2019-05-25 15:42 | Outpatient (REF) | payer MEDICARE, SELFPAY ==
[2019-05-25 12:57] LABS: Abs Immature Grans 0.02 k/cumm (0.0-0.09); Absolute Basophil Count 0.03 k/cumm (0.0-0.2); Absolute Eosinophil Count 0.08 k/cumm (0.0-0.7); Absolute Lymphocyte Count 1.12 k/cumm (1.2-3.4); Absolute Monocyte Count 0.63 k/cumm (0.11-0.7); Absolute Neutrophil Count 2.68 k/cumm (1.2-6.7); Basophils % 0.7; Eosinophils % 1.8; HGB 12.3 g/dL (12.0-15.5); Immature Grans % 0.4; Lymphocytes % 24.6; Mean Corp. HGB Concentration 31.5 g/dL (32.0-36.0); Mean Corpuscular Hemoglobin 31.8 pg (27.0-33.0); Mean Corpuscular Volume 100.8 fL (80-95); Mean Platelet Volume 10.8 fL (8.0-11.0); Monocytes % 13.8; Neutrophils % 58.7; Platelet Count 202 x1000/uL (130-400); RBC 3.87 m/cumm (4.00-5.20); RBC Distribution Width 14.3 % (11.7-14.6); White Blood Cell Count 4.56 k/cumm (4.4-10.8)
[2019-05-25 13:15] LABS: ALT 59 U/L (14-59); AST 21 U/L (15-37); Albumin 3.4 g/dL (3.4-5.0); Alkaline Phosphatase 50 U/L (46-116); Anion Gap 10.9 mmol/L (3-11); BUN 13 mg/dL (7-18); Bilirubin, Total 0.5 mg/dL (0.2-1.0); CO2 29.1 mmol/L (21.0-32.0); CREATININE 0.59 mg/dL (0.55-1.02); Calcium 8.8 mg/dL (8.5-10.1); Chloride 108 mmol/L (98-107); Glucose 172 mg/dL (74-106); Potassium 3.7 mmol/L (3.5-5.1); Sodium 148 mmol/L (136-145); Total Protein 6.1 g/dL (6.4-8.2)
[2019-05-26 10:24] LABS: Cancer Ag 15-3 25 U/mL (<30)
== END 2019-05-25 16:02 ==
LOC: LBN 15:42
PROVIDERS: PCP Family Medicine; Visit Provider Internal Medicine Hematology & Oncology
DX: C50.912 Malignant neoplasm of unspecified site of left female breast (principal); C79.31 Secondary malignant neoplasm of brain
CPT/HCPCS: 80053; 86304; 85025; 86300

== ENCOUNTER 2019-06-02 09:26 | Outpatient (CLI) | payer MEDICARE, SELFPAY ==
[2019-06-02 09:42] LABS: Abs Immature Grans 0.01 k/cumm (0.0-0.09); Absolute Basophil Count 0.03 k/cumm (0.0-0.2); Absolute Eosinophil Count 0.09 k/cumm (0.0-0.7); Absolute Lymphocyte Count 1.08 k/cumm (1.2-3.4); Absolute Monocyte Count 0.48 k/cumm (0.11-0.7); Absolute Neutrophil Count 2.56 k/cumm (1.2-6.7); Basophils % 0.7; Eosinophils % 2.1; HCT 40.2 % (36.0-46.0); HGB 12.7 g/dL (12.0-15.5); Immature Grans % 0.2; Lymphocytes % 25.4; Mean Corp. HGB Concentration 31.6 g/dL (32.0-36.0); Mean Corpuscular Hemoglobin 31.3 pg (27.0-33.0); Mean Platelet Volume 9.8 fL (8.0-11.0); Monocytes % 11.3; Neutrophils % 60.3; Platelet Count 219 x1000/uL (130-400); RBC 4.06 m/cumm (4.00-5.20); RBC Distribution Width 14.1 % (11.7-14.6); White Blood Cell Count 4.25 k/cumm (4.4-10.8)
[2019-06-02 09:54] LABS: ALT 93 U/L (14-59); AST 58 U/L (15-37); Albumin 3.2 g/dL (3.4-5.0); Alkaline Phosphatase 43 U/L (46-116); Anion Gap 7.7 mmol/L (3-11); BUN 11 mg/dL (7-18); Bilirubin, Total 0.5 mg/dL (0.2-1.0); CO2 31.3 mmol/L (21.0-32.0); CREATININE 0.63 mg/dL (0.55-1.02); Calcium 8.7 mg/dL (8.5-10.1); Chloride 107 mmol/L (98-107); Glucose 142 mg/dL (74-106); Potassium 3.2 mmol/L (3.5-5.1); Sodium 146 mmol/L (136-145); Total Protein 6.2 g/dL (6.4-8.2)
[2019-06-05 11:00] LABS: Cancer Ag 15-3 26 U/mL (<30)
== END 2019-06-02 09:46 ==
PROVIDERS: PCP Family Medicine; Visit Provider Internal Medicine Hematology & Oncology
DX: C50.912 Malignant neoplasm of unspecified site of left female breast (principal); C77.1 Secondary and unspecified malignant neoplasm of intrathoracic lymph nodes
CPT/HCPCS: 36415; 80053; 86304; 85025; 86300

== ENCOUNTER 2019-06-26 00:54 | Outpatient (CLI) | payer MEDICARE, MEDICAID, SELFPAY ==
[2019-06-26 08:25] LABS: Abs Immature Grans 0.02 k/cumm (0.0-0.09); Absolute Basophil Count 0.05 k/cumm (0.0-0.2); Absolute Eosinophil Count 0.17 k/cumm (0.0-0.7); Absolute Lymphocyte Count 1.27 k/cumm (1.2-3.4); Absolute Monocyte Count 0.79 k/cumm (0.11-0.7); Absolute Neutrophil Count 4.29 k/cumm (1.2-6.7); Basophils % 0.8; Eosinophils % 2.6; HCT 42.6 % (36.0-46.0); HGB 13.8 g/dL (12.0-15.5); Immature Grans % 0.3 %; Lymphocytes % 19.3; Mean Corp. HGB Concentration 32.4 g/dL (32.0-36.0); Mean Corpuscular Hemoglobin 31.1 pg (27.0-33.0); Mean Corpuscular Volume 95.9 fL (80-95); Mean Platelet Volume 10.8 fL (8.0-11.0); Platelet Count 229 x1000/uL (130-400); RBC 4.44 m/cumm (4.00-5.20); RBC Distribution Width 14.9 % (11.7-14.6); White Blood Cell Count 6.59 k/cumm (4.4-10.8)
[2019-06-26 08:33] LABS: ALT 67 U/L (14-59); AST 37 U/L (15-37); Albumin 3.6 g/dL (3.4-5.0); Alkaline Phosphatase 49 U/L (46-116); Anion Gap 10.6 mmol/L (3-11); BUN 12 mg/dL (7-18); Bilirubin, Total 0.6 mg/dL (0.2-1.0); CO2 27.4 mmol/L (21.0-32.0); CREATININE 0.64 mg/dL (0.55-1.02); Calcium 9.5 mg/dL (8.5-10.1); Chloride 106 mmol/L (98-107); Glucose 175 mg/dL (74-106); Potassium 4.1 mmol/L (3.5-5.1); Sodium 144 mmol/L (136-145); Total Protein 6.7 g/dL (6.4-8.2)
[2019-06-26] MEDS: Omnipaque 350 MG/ML 50 ML BTL IV ×2 (09:11→10:11)
[2019-06-26] MEDS: Omnipaque 350 MG/ML 100 ML BTL IV (09:27)
--- NOTE | 2019-06-26 09:34 | DI.CT_ITS ---
EXAM: CT CHEST/ABD/PEL W CLINICAL HISTORY: BREAST CA METASTATIC TO BRAIN,C50.919,C79.31,MEDIASTINALADENOPATHY, ON HORMONAL TH ERAPY, RESTAGING EXAM TECHNIQUE: CT examination chest, abdomen and pelvis was performed a bolus infusion of 100 cc of Omn ipaque 350 and ingestion of dilute barium. COMPARISON: CT CHEST PE CTA from 05/23/2019 FINDINGS: The patient reportedly has breast carcinoma metastatic to brain. Prior CT of 05/23/2019 showed bilateral pulmonary emboli, the findings are slightly less prominent on the current study but emboli do persist in lobar, segmental and subsegmental vessels bilaterally, pr edominantly in the lower lobes. Thoracic aorta and major branches show no acute abnormality. No gross mediastinal or hilar adenopath y. No pericardial effusion. No pleural effusion. Presumed pleural scarring seen in the right lung base. 4 millimeter nonspecific right middle lobe intrapulmonary nodule, unchanged from prior study. Prior left axillary dissection and partial mastectomy noted. No gross evidence of bony metastatic disease in the thorax. Healed left rib fractures noted anterior ly. There is hepatic steatosis. Gallbladder has been surgically removed. There are apparent small bilat eral renal cysts. Adrenals appear normal. No urinary tract calcification or obstruction. Spleen un remarkable. Pancreas unremarkable. No biliary dilatation. No abdominal or pelvic adenopathy. No focal bowel pathology. [employer] structures appear intact as visual ized. No bony lesion identified on scanning of the abdomen and pelvis. IMPRESSION: No evidence of metastatic disease of the chest, abdomen, or pelvis. Slight interval improvement in previously noted pulmonary embolic disease noted on CT of 05/23/2019.
[2019-06-27 12:23] LABS: Cancer Ag 15-3 22 U/mL (<30)
== END 2019-06-26 01:14 ==
PROVIDERS: PCP Family Medicine; Visit Provider Internal Medicine Hematology & Oncology
DX: C50.912 Malignant neoplasm of unspecified site of left female breast (principal); C77.1 Secondary and unspecified malignant neoplasm of intrathoracic lymph nodes; C79.31 Secondary malignant neoplasm of brain; R91.1 Solitary pulmonary nodule; K76.0 Fatty (change of) liver, not elsewhere classified
CPT/HCPCS: 74177; 80053; 86304; 71260; 85025; 86300; J3490; Q9967

== ENCOUNTER 2019-08-02 13:45 | Outpatient (REF) | payer MEDICARE, MEDICAID, SELFPAY ==
[2019-08-02 12:45] LABS: Abs Immature Grans 0.03 k/cumm (0.0-0.09); Absolute Basophil Count 0.03 k/cumm (0.0-0.2); Absolute Eosinophil Count 0.25 k/cumm (0.0-0.7); Absolute Lymphocyte Count 1.52 k/cumm (1.2-3.4); Absolute Monocyte Count 0.65 k/cumm (0.11-0.7); Absolute Neutrophil Count 5.21 k/cumm (1.2-6.7); Basophils % 0.4; Eosinophils % 3.3; HCT 44.8 % (36.0-46.0); HGB 14.5 g/dL (12.0-15.5); Immature Grans % 0.4 %; Lymphocytes % 19.8; Mean Corp. HGB Concentration 32.4 g/dL (32.0-36.0); Mean Corpuscular Hemoglobin 30.4 pg (27.0-33.0); Mean Corpuscular Volume 93.9 fL (80-95); Mean Platelet Volume 11.3 fL (8.0-11.0); Monocytes % 8.5; Neutrophils % 67.6; Platelet Count 260 x1000/uL (130-400); RBC 4.77 m/cumm (4.00-5.20); White Blood Cell Count 7.69 k/cumm (4.4-10.8)
[2019-08-02 13:45] LABS: ALT 45 U/L (14-59); AST 29 U/L (15-37); Albumin 3.9 g/dL (3.4-5.0); Alkaline Phosphatase 54 U/L (46-116); Anion Gap 15.7 mmol/L (3-11); BUN 13 mg/dL (7-18); Bilirubin, Total 0.6 mg/dL (0.2-1.0); CO2 24.3 mmol/L (21.0-32.0); CREATININE 0.71 mg/dL (0.55-1.02); Calcium 9.7 mg/dL (8.5-10.1); Chloride 102 mmol/L (98-107); Glucose 126 mg/dL (74-106); Potassium 3.9 mmol/L (3.5-5.1); Sodium 142 mmol/L (136-145); Total Protein 7.1 g/dL (6.4-8.2)
[2019-08-03 15:35] LABS: Cancer Ag 15-3 24 U/mL (<30)
== END 2019-08-02 14:05 ==
LOC: LBN 13:45
PROVIDERS: PCP Family Medicine; Visit Provider Internal Medicine Hematology & Oncology
DX: C50.912 Malignant neoplasm of unspecified site of left female breast (principal); C79.31 Secondary malignant neoplasm of brain
CPT/HCPCS: 80053; 86304; 85025; 86300

== ENCOUNTER 2019-08-30 10:15 | Outpatient (REF) | payer MEDICARE, MEDICAID, SELFPAY ==
[2019-08-30 10:59] LABS: Abs Immature Grans 0.02 k/cumm (0.0-0.09); Absolute Basophil Count 0.03 k/cumm (0.0-0.2); Absolute Eosinophil Count 0.26 k/cumm (0.0-0.7); Absolute Lymphocyte Count 1.03 k/cumm (1.2-3.4); Absolute Monocyte Count 0.68 k/cumm (0.11-0.7); Absolute Neutrophil Count 3.91 k/cumm (1.2-6.7); Basophils % 0.5; Eosinophils % 4.4; HCT 42.7 % (36.0-46.0); HGB 13.6 g/dL (12.0-15.5); Immature Grans % 0.3 %; Lymphocytes % 17.4; Mean Corp. HGB Concentration 31.9 g/dL (32.0-36.0); Mean Corpuscular Hemoglobin 29.9 pg (27.0-33.0); Mean Corpuscular Volume 93.8 fL (80-95); Mean Platelet Volume 10.4 fL (8.0-11.0); Monocytes % 11.5; Neutrophils % 65.9; Platelet Count 254 x1000/uL (130-400); RBC 4.55 m/cumm (4.00-5.20); RBC Distribution Width 14.9 % (11.7-14.6); White Blood Cell Count 5.93 k/cumm (4.4-10.8)
[2019-08-30 11:05] LABS: ALT 56 U/L (14-59); AST 44 U/L (15-37); Albumin 3.6 g/dL (3.4-5.0); Alkaline Phosphatase 56 U/L (46-116); Anion Gap 8.9 mmol/L (3-11); BUN 9 mg/dL (7-18); Bilirubin, Total 0.5 mg/dL (0.2-1.0); CO2 28.1 mmol/L (21.0-32.0); CREATININE 0.62 mg/dL (0.55-1.02); Calcium 9.2 mg/dL (8.5-10.1); Chloride 105 mmol/L (98-107); Glucose 145 mg/dL (74-106); Potassium 4.2 mmol/L (3.5-5.1); Sodium 142 mmol/L (136-145); Total Protein 6.7 g/dL (6.4-8.2)
[2019-08-31 13:16] LABS: Cancer Ag 15-3 19 U/mL (<30)
== END 2019-08-30 10:35 ==
LOC: LBN 10:15
PROVIDERS: PCP Family Medicine; Visit Provider Internal Medicine Hematology & Oncology
DX: C50.912 Malignant neoplasm of unspecified site of left female breast (principal); C79.31 Secondary malignant neoplasm of brain
CPT/HCPCS: 80053; 86304; 85025; 86300

== ENCOUNTER 2019-10-02 00:27 | Outpatient (CLI) | payer MEDICARE, MEDICAID, SELFPAY ==
--- NOTE | 2019-10-02 | DI.CT_ITS ---
EXAM: CT CHEST/ABD/PEL W CLINICAL HISTORY: METASTATIC BREAST CA,C50.929, ON HORMONAL THERAPY, RESTAGING EXAM TECHNIQUE: Imaging Protocol: Axial computed tomography images with coronal and sagittal reformatted images were created and reviewed CONTRAST MATERIAL: Intravenous: Omnipaque 350 Contrast volume:100 ml Oral: yes COMPARISON: CT CHEST/ABD/PEL W from 06/26/2019 FINDINGS: CHEST: Tracheobronchial tree: Patent where visualized. Mediastinum and Sheila: No dominant adenopathy or fluid collection. Pulmonary parenchyma: Atelectatic changes are seen in the lung bases. No new pulmonary nodules are p resent. No architectural distortion. Pleura: No effusion or pneumothorax. Heart: The heart is not dilated. Marked coronary artery calcification is present. No pericardial eff usion is present. Aorta: Thoracic aorta non-dilated. Atherosclerosis. Lymph nodes: Within normal limits. Bones:Degenerative changes are present. ABDOMEN: Liver: Hepatic steatosis. No measurable mass. Portal, Superior Mesenteric, and Splenic Veins: Unremarkable. Gallbladder and Biliary Tract: Status post cholecystectomy. No biliary ductal dilatation. Pancreas: Normal density, no abnormal calcifications or inflammatory process. Spleen: Normal. Adrenals: No masses seen. Kidneys: Normal size, contour and axis. No radiodense stones or obstructive uropathy. No masses seen. Small bilateral renal cysts. Abdominal Aorta: Abdominal portion non-dilated. Atherosclerosis. Bowel: No obstruction or bowel wall thickening. Appendix is unremarkable. Peritoneal Cavity: No ascites, collection or mesenteric inflammatory response. Lymph Nodes: Within normal limits. Bones: Degenerative changes. Soft Tissues: Unremarkable. PELVIS: Bladder: Symmetric distention, no gross wall thickening. Reproductive Organs: Unremarkable as visualized. Lymph Nodes: Within normal limits. Bones: Degenerative changes. IMPRESSION: 1. No evidence of metastatic disease in the abdomen or pelvis. 2. No evidence of thoracic metastatic disease. RADIATION DOSE DELIVERED: Total DLP DATA REPOSITORY: All CT scans at this facility are submitted to the National Radiology Data Registry (NRDR) Dose Index Registry (DIR) with the [employer] (ACR). RADIATION OPTIMIZATION: All CT scans at this facility use at least one of these dose optimization te chniques: automated exposure control; mA and/or kV adjustment per patient size (includes targeted exa ms where dose is matched to clinical indication); or iterative reconstruction.
[2019-10-02 09:26] LABS: Abs Immature Grans 0.02 k/cumm (0.0-0.09); Absolute Basophil Count 0.03 k/cumm (0.0-0.2); Absolute Eosinophil Count 0.25 k/cumm (0.0-0.7); Absolute Lymphocyte Count 1.27 k/cumm (1.2-3.4); Absolute Monocyte Count 0.51 k/cumm (0.11-0.7); Absolute Neutrophil Count 4.49 k/cumm (1.2-6.7); Basophils % 0.5; Eosinophils % 3.8; HCT 40.3 % (36.0-46.0); HGB 12.9 g/dL (12.0-15.5); Immature Grans % 0.3 %; Lymphocytes % 19.3; Mean Corpuscular Hemoglobin 29.8 pg (27.0-33.0); Mean Corpuscular Volume 93.1 fL (80-95); Mean Platelet Volume 10.3 fL (8.0-11.0); Monocytes % 7.8; Neutrophils % 68.3; Platelet Count 247 x1000/uL (130-400); RBC 4.33 m/cumm (4.00-5.20); RBC Distribution Width 14.7 % (11.7-14.6); White Blood Cell Count 6.57 k/cumm (4.4-10.8)
[2019-10-02 09:41] LABS: ALT 53 U/L (14-59); AST 40 U/L (15-37); Albumin 3.5 g/dL (3.4-5.0); Alkaline Phosphatase 51 U/L (46-116); BUN 16 mg/dL (7-18); Bilirubin, Total 0.6 mg/dL (0.2-1.0); CREATININE 0.73 mg/dL (0.55-1.02); Chloride 103 mmol/L (98-107); Glucose 154 mg/dL (74-106); Potassium 4.2 mmol/L (3.5-5.1); Sodium 139 mmol/L (136-145); Total Protein 7.1 g/dL (6.4-8.2)
[2019-10-02] MEDS: Omnipaque 350 MG/ML 100 ML BTL IV (11:16)
[2019-10-02] MEDS: Normal Saline - Diluent 50 ML VIAL IV (11:38)
[2019-10-03 14:16] LABS: Cancer Ag 15-3 19 U/mL (<30)
== END 2019-10-02 00:47 ==
PROVIDERS: PCP Family Medicine; Visit Provider Internal Medicine Hematology & Oncology
DX: C50.912 Malignant neoplasm of unspecified site of left female breast (principal); C77.1 Secondary and unspecified malignant neoplasm of intrathoracic lymph nodes; Z12.89 Encounter for screening for malignant neoplasm of other sites; K76.0 Fatty (change of) liver, not elsewhere classified; N28.1 Cyst of kidney, acquired; Z90.49 Acquired absence of other specified parts of digestive tract; Z79.890 Hormone replacement therapy
CPT/HCPCS: 74177; 80053; 86304; 71260; 85025; 86300; J3490

== ENCOUNTER 2019-11-02 09:58 | Outpatient (REF) | payer MEDICARE, MEDICAID, SELFPAY ==
[2019-11-02 10:25] LABS: Abs Immature Grans 0.01 k/cumm (0.0-0.09); Absolute Basophil Count 0.05 k/cumm (0.0-0.2); Absolute Eosinophil Count 0.18 k/cumm (0.0-0.7); Absolute Lymphocyte Count 1.49 k/cumm (1.2-3.4); Absolute Monocyte Count 0.56 k/cumm (0.11-0.7); Absolute Neutrophil Count 2.79 k/cumm (1.2-6.7); Eosinophils % 3.5; HCT 39.5 % (36.0-46.0); HGB 12.4 g/dL (12.0-15.5); Immature Grans % 0.2 %; Lymphocytes % 29.3; Mean Corp. HGB Concentration 31.4 g/dL (32.0-36.0); Mean Corpuscular Hemoglobin 29.1 pg (27.0-33.0); Mean Corpuscular Volume 92.7 fL (80-95); Mean Platelet Volume 10.3 fL (8.0-11.0); Platelet Count 262 x1000/uL (130-400); RBC 4.26 m/cumm (4.00-5.20); RBC Distribution Width 14.9 % (11.7-14.6); White Blood Cell Count 5.08 k/cumm (4.4-10.8)
[2019-11-03 11:50] LABS: Cancer Ag 15-3 21 U/mL (<30)
[2019-11-03 12:05] LABS: ALT 65 U/L (14-59); AST 52 U/L (15-37); Albumin 3.8 g/dL (3.4-5.0); Alkaline Phosphatase 57 U/L (46-116); BUN 13 mg/dL (7-18); Bilirubin, Total 0.6 mg/dL (0.2-1.0); CREATININE 0.67 mg/dL (0.55-1.02); Calcium 9.1 mg/dL (8.5-10.1); Chloride 104 mmol/L (98-107); Glucose 144 mg/dL (74-106); Potassium 4.3 mmol/L (3.5-5.1); Sodium 138 mmol/L (136-145); Total Protein 6.8 g/dL (6.4-8.2)
== END 2019-11-02 10:18 ==
LOC: LBO 09:58
PROVIDERS: PCP Family Medicine; Visit Provider Internal Medicine Hematology & Oncology
DX: C71.1 Malignant neoplasm of frontal lobe (principal); C50.912 Malignant neoplasm of unspecified site of left female breast; C79.31 Secondary malignant neoplasm of brain
CPT/HCPCS: 80053; 86304; 85025; 86300

== ENCOUNTER 2020-02-06 00:29 | Outpatient (CLI) | payer MEDICARE, MEDICAID, SELFPAY ==
--- NOTE | 2020-02-06 | DI.CT_ITS ---
EXAM: CT CHEST/ABD/PEL W CLINICAL HISTORY: STAGE IV BREAST CA, MEDIASTINAL DORIS DISEASE TECHNIQUE: Imaging Protocol: Axial computed tomography images with coronal and sagittal reformatted images were created and reviewed CONTRAST MATERIAL: Intravenous: Omnipaque 350 Contrast volume:100 mL Oral: Yes COMPARISON: CT UPPER ABD WITH CONTRAST (P) from 06/17/[address] CHEST PE CTA from 05/23/[address] CHEST/ABD/PEL W from 06/26/[address] CHEST/ABD/PEL W from 10/02/[address] CHEST/ABD/PEL W from 10/02/2019 FINDINGS: CHEST: Tracheobronchial tree: Patent where visualized. Mediastinum and Sheila: No dominant adenopathy or fluid collection. Pulmonary parenchyma: There is now 1.7 x 1.8 cm nodule right lower lobe. There is again seen a pleur al based opacity in the right lower lobe. This has been present on prior examinations dating back to 2018. The 4 mm nodule in the right middle lobe is unchanged compared to the prior examination. No architectural distortion. Pleura: No effusion or pneumothorax. Heart: The heart is not dilated. Coronary artery calcifications are present. No pericardial effusion . Aorta: Thoracic aorta non-dilated. Atherosclerosis. Lymph nodes: Within normal limits. Bones:Degenerative changes. There is a stable sclerotic focus at the anterolateral aspect of the rig ht 5th rib. Soft tissues: Surgical clips in the left axilla. ABDOMEN: Liver: Diffuse fatty infiltration. No measurable mass. Portal, Superior Mesenteric, and Splenic Veins: Unremarkable. Gallbladder and Biliary Tract: Status post cholecystectomy. No biliary ductal dilatation. Pancreas: Normal density, no abnormal calcifications or inflammatory process. Spleen: Normal. Adrenals: No masses seen. Kidneys: Normal size, contour and axis. No radiodense stones or obstructive uropathy. Bilateral renal cysts. Abdominal Aorta: Abdominal portion non-dilated. Atherosclerosis. Bowel: No obstruction or bowel wall thickening. Appendix is unremarkable. Peritoneal Cavity: No ascites, collection or mesenteric inflammatory response. Lymph Nodes: Within normal limits. Bones: Degenerative changes. Soft Tissues: Unremarkable. PELVIS: Bladder: Symmetric distention, no gross wall thickening. Reproductive Organs: Unremarkable as visualized. Lymph Nodes: Within normal limits. Bones: Degenerative changes. IMPRESSION: 1. No evidence of abdominal or pelvic metastatic disease. 2. 1.7 x 1.8 cm soft tissue nodule in the right lower lobe. Metastatic disease or primary lung carci noma should be excluded. RADIATION DOSE DELIVERED: 1,942.32mGy.cm Total DLP DATA REPOSITORY: All CT scans at this facility are submitted to the National Radiology Data Registry (NRDR) Dose Index Registry (DIR) with the [employer] (ACR). RADIATION OPTIMIZATION: All CT scans at this facility use at least one of these dose optimization te chniques: automated exposure control; mA and/or kV adjustment per patient size (includes targeted exa ms where dose is matched to clinical indication); or iterative reconstruction.
[2020-02-06 08:59] LABS: Abs Immature Grans 0.02 10^3/uL (0.0-0.06); Absolute Basophil Count 0.04 10^3/uL (0.0-0.2); Absolute Lymphocyte Count 1.39 10^3/uL (1.2-3.4); Absolute Monocyte Count 0.49 10^3/uL (0.1-0.8); Absolute Neutrophil Count 4.91 10^3/uL (1.2-6.7); Basophils % 0.6; Eosinophils % 2.8; HGB 11.9 g/dL (11.2-15.7); Immature Grans % 0.3; Lymphocytes % 19.7; MCH 28.7 pg (27.0-33.0); MCHC 31.3 % (32.0-36.0); MCV 91.6 fL (80-95); MPV 10.5 fL (8.0-11.0); Neutrophils % 69.6; Nucleated RBC 0 %; Platelet Count 221 10^3/uL (130-400); RBC 4.15 10^6/uL (3.93-5.22); RDW 14.6 % (11.7-14.6); RDW-SD 48.5 fL; WBC 7.05 10^3/uL (4.4-10.8)
[2020-02-06 09:16] LABS: ALT 31 U/L (14-59); AST 19 U/L (15-37); Albumin 3.6 g/dL (3.4-5.0); Alkaline Phosphatase 83 U/L (46-116); Anion Gap 7.9 mmol/L (3-11); BUN 17 mg/dL (7-18); Bilirubin, Total 0.4 mg/dL (0.2-1.0); CO2 29.1 mmol/L (21.0-32.0); CREATININE 0.76 mg/dL (0.55-1.02); Calcium 9.2 mg/dL (8.5-10.1); Chloride 105 mmol/L (98-107); Glucose 147 mg/dL (74-106); Potassium 4.1 mmol/L (3.5-5.1); Sodium 142 mmol/L (136-145)
[2020-02-06] MEDS: Normal Saline - Diluent 50 ML VIAL IV (10:25)
[2020-02-06] MEDS: Omnipaque 350 MG/ML 100 ML BTL IJ (10:25)
[2020-02-06] MEDS: Breeza Beverage 473 ML BTL PO ×2 (10:25→10:26)
[2020-02-06] MEDS: Omnipaque 350 MG/ML 50 ML BTL IJ (10:29)
[2020-02-07 15:14] LABS: Cancer Ag 15-3 23 U/mL (<30)
== END 2020-02-06 00:49 ==
PROVIDERS: PCP Family Medicine; Visit Provider Internal Medicine Hematology & Oncology
DX: R91.1 Solitary pulmonary nodule (principal); J98.59 Other diseases of mediastinum, not elsewhere classified; C50.919 Malignant neoplasm of unspecified site of unspecified female breast
CPT/HCPCS: 74177; 80053; 86304; 71260; 85025; 86300; J3490; Q9967

== ENCOUNTER 2020-03-07 09:38 | Outpatient (REF) | payer MEDICARE, MEDICAID, SELFPAY ==
[2020-03-07 13:20] LABS: Abs Immature Grans 0.05 10^3/uL (0.0-0.06); Absolute Basophil Count 0.04 10^3/uL (0.0-0.2); Absolute Eosinophil Count 0.21 10^3/uL (0.0-0.7); Absolute Lymphocyte Count 1.23 10^3/uL (1.2-3.4); Absolute Monocyte Count 0.35 10^3/uL (0.1-0.8); Absolute Neutrophil Count 3.63 10^3/uL (1.2-6.7); Basophils % 0.7; Eosinophils % 3.8; HCT 37.9 % (36.0-46.0); Immature Grans % 0.9; Lymphocytes % 22.3; MCH 29.3 pg (27.0-33.0); MCHC 31.7 % (32.0-36.0); MCV 92.7 fL (80-95); MPV 10.6 fL (8.0-11.0); Monocytes % 6.4; Neutrophils % 65.9; Nucleated RBC 0 %; Platelet Count 218 10^3/uL (130-400); RBC 4.09 10^6/uL (3.93-5.22); RDW-SD 50.3 fL; WBC 5.51 10^3/uL (4.4-10.8)
[2020-03-07 13:22] LABS: Albumin 3.6 g/dL (3.4-5.0); Alkaline Phosphatase 86 U/L (46-116); Anion Gap 7.5 mmol/L (3-11); BUN 14 mg/dL (7-18); Bilirubin, Total 0.4 mg/dL (0.2-1.0); CO2 28.5 mmol/L (21.0-32.0); CREATININE 0.57 mg/dL (0.55-1.02); Calcium 8.3 mg/dL (8.5-10.1); Chloride 105 mmol/L (98-107); Glucose 143 mg/dL (74-106); Potassium 4.1 mmol/L (3.5-5.1); Sodium 141 mmol/L (136-145); Total Protein 6.6 g/dL (6.4-8.2)
[2020-03-07 13:51] LABS: ALT 32 U/L (14-59); AST 29 U/L (15-37)
[2020-03-09 13:41] LABS: Cancer Ag 15-3 25 U/mL (<30)
== END 2020-03-07 09:58 ==
LOC: LBN 09:38
PROVIDERS: PCP Family Medicine; Visit Provider Internal Medicine Hematology & Oncology
DX: C50.912 Malignant neoplasm of unspecified site of left female breast (principal); C79.31 Secondary malignant neoplasm of brain
CPT/HCPCS: 80053; 86304; 85025; 86300

== ENCOUNTER 2020-04-04 14:32 | Outpatient (REF) | payer MEDICARE, MEDICAID, SELFPAY ==
[2020-04-04 11:56] LABS: Abs Immature Grans 0.02 10^3/uL (0.0-0.06); Absolute Basophil Count 0.05 10^3/uL (0.0-0.2); Absolute Eosinophil Count 0.16 10^3/uL (0.0-0.7); Absolute Lymphocyte Count 1.04 10^3/uL (1.2-3.4); Absolute Monocyte Count 0.33 10^3/uL (0.1-0.8); Absolute Neutrophil Count 2.95 10^3/uL (1.2-6.7); Basophils % 1.1; Eosinophils % 3.5; HCT 40.8 % (36.0-46.0); HGB 13.2 g/dL (11.2-15.7); Immature Grans % 0.4; Lymphocytes % 22.9; MCH 29.8 pg (27.0-33.0); MCHC 32.4 % (32.0-36.0); MCV 92.1 fL (80-95); MPV 10.2 fL (8.0-11.0); Monocytes % 7.3; Neutrophils % 64.8; Nucleated RBC 0 %; Platelet Count 217 10^3/uL (130-400); RBC 4.43 10^6/uL (3.93-5.22); RDW 15.3 % (11.7-14.6); RDW-SD 50.2 fL; WBC 4.55 10^3/uL (4.4-10.8)
[2020-04-04 11:59] LABS: ALT 31 U/L (14-59); AST 20 U/L (15-37); Albumin 3.8 g/dL (3.4-5.0); Alkaline Phosphatase 61 U/L (46-116); Anion Gap 6.9 mmol/L (3-11); BUN 18 mg/dL (7-18); Bilirubin, Total 0.5 mg/dL (0.2-1.0); CO2 29.1 mmol/L (21.0-32.0); Calcium 9.1 mg/dL (8.5-10.1); Chloride 105 mmol/L (98-107); Glucose 110 mg/dL (74-106); Sodium 141 mmol/L (136-145); Total Protein 7.1 g/dL (6.4-8.2)
[2020-04-06 13:39] LABS: Cancer Ag 15-3 28 U/mL (<30)
== END 2020-04-04 14:52 ==
LOC: LBN 14:32
PROVIDERS: PCP Family Medicine; Visit Provider Internal Medicine Hematology & Oncology
DX: C50.912 Malignant neoplasm of unspecified site of left female breast (principal); C79.31 Secondary malignant neoplasm of brain
CPT/HCPCS: 80053; 86304; 85025; 86300

== ENCOUNTER 2020-04-22 00:17 | Outpatient (CLI) | payer MEDICARE, MEDICAID, SELFPAY ==
--- NOTE | 2020-04-22 | DI.CT_ITS ---
EXAM: CT CHEST/ABD/PEL W CLINICAL HISTORY: BREAST CA,ON THERAPY,RESTAGING EXAM,C50.912,C79.31 TECHNIQUE: Imaging Protocol: Axial computed tomography images with coronal and sagittal reformatted images were created and reviewed CONTRAST MATERIAL: Intravenous: Omnipaque 350 Contrast volume:100 mL Oral: Yes COMPARISON: CT CT CHEST/ABD/PEL W from 02/06/2020 FINDINGS: CHEST: Tracheobronchial tree: Patent where visualized. Mediastinum and Sheila: No dominant adenopathy or fluid collection. Pulmonary parenchyma: There is again seen a 1.7 x 1.4 cm right lower lobe pulmonary nodule. There mi s been no change in appearance of the pleural base nodularity in the right lower lobe posteriorly. T he 4 mm nodule adjacent to the right minor fissure is unchanged and may reflect an intraparenchymal l ymph node. No architectural distortion. Pleura: No effusion or pneumothorax. Heart: The heart is not dilated. Marked coronary artery calcification is present. No pericardial eff usion. Aorta: Thoracic aorta non-dilated. Atherosclerosis. Lymph nodes: Within normal limits. Bones:Degenerative changes.No aggressive osseous lesion. Soft tissues: Status post left mastectomy. ABDOMEN: Liver: Diffuse fatty infiltration. No measurable mass. The liver measures 20 cm in length. Portal, Superior Mesenteric, and Splenic Veins: Unremarkable. Gallbladder and Biliary Tract: Status post cholecystectomy. No biliary ductal dilatation. Pancreas: Normal density, no abnormal calcifications or inflammatory process. Spleen: Normal. Adrenals: No masses seen. Kidneys: Normal size, contour and axis. No radiodense stones or obstructive uropathy. Bilateral simpl e renal cysts. Abdominal Aorta: Abdominal portion non-dilated. Atherosclerosis. Bowel: No obstruction or bowel wall thickening. Appendix is unremarkable. Peritoneal Cavity: No ascites, collection or mesenteric inflammatory response. Lymph Nodes: Within normal limits. Bones: Degenerative changes. No aggressive osseous lesions. Soft Tissues: Unremarkable. PELVIS: Bladder: Symmetric distention, no gross wall thickening. Reproductive Organs: Unremarkable as visualized. Lymph Nodes: Within normal limits. Bones: Degenerative changes. No aggressive osseous lesions. IMPRESSION: 1. No evidence of abdominal or pelvic metastatic disease. 2. Stable pulmonary nodules. RADIATION DOSE DELIVERED: 1,404.46mGy.cm Total DLP DATA REPOSITORY: All CT scans at this facility are submitted to the National Radiology Data Registry (NRDR) Dose Index Registry (DIR) with the [employer] (ACR). RADIATION OPTIMIZATION: All CT scans at this facility use at least one of these dose optimization te chniques: automated exposure control; mA and/or kV adjustment per patient size (includes targeted exa ms where dose is matched to clinical indication); or iterative reconstruction.
[2020-04-22] MEDS: Omnipaque 350 MG/ML 100 ML BTL IJ (10:22)
[2020-04-22] MEDS: Breeza Beverage 473 ML BTL PO (10:24)
== END 2020-04-22 00:37 ==
PROVIDERS: PCP Family Medicine; Visit Provider Internal Medicine Hematology & Oncology
DX: C50.912 Malignant neoplasm of unspecified site of left female breast (principal); C79.31 Secondary malignant neoplasm of brain; R91.8 Other nonspecific abnormal finding of lung field
CPT/HCPCS: 74177; 71260; J3490

== ENCOUNTER 2020-05-01 13:03 | Outpatient (REF) | payer MEDICARE, MEDICAID, SELFPAY ==
[2020-05-01 13:28] LABS: Abs Immature Grans 0.03 10^3/uL (0.0-0.06); Absolute Basophil Count 0.06 10^3/uL (0.0-0.2); Absolute Eosinophil Count 0.16 10^3/uL (0.0-0.7); Absolute Lymphocyte Count 1.07 10^3/uL (1.2-3.4); Absolute Monocyte Count 0.42 10^3/uL (0.1-0.8); Absolute Neutrophil Count 3.22 10^3/uL (1.2-6.7); Basophils % 1.2; Eosinophils % 3.2; HCT 40.9 % (36.0-46.0); HGB 13.3 g/dL (11.2-15.7); Immature Grans % 0.6; Lymphocytes % 21.6; MCH 30.4 pg (27.0-33.0); MCHC 32.5 % (32.0-36.0); MCV 93.4 fL (80-95); MPV 10.1 fL (8.0-11.0); Monocytes % 8.5; Neutrophils % 64.9; Nucleated RBC 0 %; Platelet Count 211 10^3/uL (130-400); RBC 4.38 10^6/uL (3.93-5.22); RDW 15.3 % (11.7-14.6); RDW-SD 52.3 fL; WBC 4.96 10^3/uL (4.4-10.8)
[2020-05-01 13:52] LABS: ALT 30 U/L (14-59); AST 22 U/L (15-37); Alkaline Phosphatase 52 U/L (46-116); Anion Gap 7.4 mmol/L (3-11); BUN 18 mg/dL (7-18); Bilirubin, Direct 0.13 mg/dL (0.00-0.20); Bilirubin, Total 0.6 mg/dL (0.2-1.0); CO2 29.6 mmol/L (21.0-32.0); CREATININE 0.86 mg/dL (0.55-1.02); Calcium 9.2 mg/dL (8.5-10.1); Chloride 102 mmol/L (98-107); Glucose 112 mg/dL (74-106); Sodium 139 mmol/L (136-145); Total Protein 7.6 g/dL (6.4-8.2)
[2020-05-01 14:11] LABS: COMMENT (LAB VIEW ONLY) 105.81 mg/dL; Microalb ug/mg Crea 11.3 ug/mg Cr
[2020-05-01 14:13] LABS: Hemoglobin A1C 5.4 % (<5.7)
[2020-05-03 15:46] LABS: Cancer Ag 15-3 31 U/mL (<30)
== END 2020-05-01 13:23 ==
LOC: NCHCN 13:03
PROVIDERS: PCP Family Medicine; Visit Provider Family Medicine
DX: C50.912 Malignant neoplasm of unspecified site of left female breast (principal); C79.31 Secondary malignant neoplasm of brain
CPT/HCPCS: 80053; 80076; 86304; 82043; 82570; 83036; 85025; 86300

== ENCOUNTER 2020-06-05 15:57 | Outpatient (REF) | payer MEDICARE, MEDICAID, SELFPAY ==
[2020-06-05 13:39] LABS: ALT 23 U/L (14-59); AST 16 U/L (15-37); Abs Immature Grans 0.02 10^3/uL (0.0-0.06); Absolute Basophil Count 0.07 10^3/uL (0.0-0.2); Absolute Eosinophil Count 0.15 10^3/uL (0.0-0.7); Absolute Lymphocyte Count 1.59 10^3/uL (1.2-3.4); Absolute Neutrophil Count 3.48 10^3/uL (1.2-6.7); Albumin 3.9 g/dL (3.4-5.0); Alkaline Phosphatase 62 U/L (46-116); Anion Gap 7.2 mmol/L (3-11); BUN 19 mg/dL (7-18); Basophils % 1.2; Bilirubin, Total 0.6 mg/dL (0.2-1.0); CO2 28.8 mmol/L (21.0-32.0); CREATININE 0.85 mg/dL (0.55-1.02); Calcium 9.3 mg/dL (8.5-10.1); Chloride 105 mmol/L (98-107); Eosinophils % 2.6; Glucose 99 mg/dL (74-106); HCT 38.9 % (36.0-46.0); Immature Grans % 0.3; Lymphocytes % 27.4; MCH 31.6 pg (27.0-33.0); MCHC 33.4 % (32.0-36.0); MCV 94.4 fL (80-95); Monocytes % 8.6; Neutrophils % 59.9; Nucleated RBC 0 %; Platelet Count 194 10^3/uL (130-400); Potassium 4.5 mmol/L (3.5-5.1); RBC 4.12 10^6/uL (3.93-5.22); RDW-SD 51.3 fL; Sodium 141 mmol/L (136-145); Total Protein 7.2 g/dL (6.4-8.2); WBC 5.81 10^3/uL (4.4-10.8)
[2020-06-10 11:36] LABS: Cancer Ag 15-3 32 U/mL (<30)
== END 2020-06-05 16:17 ==
LOC: LBN 15:57
PROVIDERS: PCP Family Medicine; Visit Provider Internal Medicine Hematology & Oncology
DX: C50.912 Malignant neoplasm of unspecified site of left female breast (principal); C79.31 Secondary malignant neoplasm of brain; C77.1 Secondary and unspecified malignant neoplasm of intrathoracic lymph nodes; Z92.21 Personal history of antineoplastic chemotherapy
CPT/HCPCS: 80053; 86304; 85025; 86300

== ENCOUNTER 2020-06-26 02:01 | Outpatient (CLI) | payer MEDICARE, MEDICAID, SELFPAY ==
--- NOTE | 2020-06-26 | DI.CT_ITS ---
EXAM: CT CHEST/ABD/PEL W CLINICAL HISTORY: BREAST CA WITH LUNG METS,C50.919,C73.91,RESTAGING EXAM TECHNIQUE: Imaging Protocol: Axial computed tomography images with coronal and sagittal reformatted images were created and reviewed CONTRAST MATERIAL: Intravenous: Omnipaque 350 Contrast volume:100 mL Oral: Yes COMPARISON: CT CT CHEST/ABD/PEL W from 04/22/2020 FINDINGS: CHEST: Tracheobronchial tree: Patent where visualized. Pulmonary parenchyma: No focal consolidation. There has been no change in appearance of the right mi ddle and right lower lobe pulmonary nodules. No new pulmonary nodules are present. Visualized thyroid gland: Unremarkable. Mediastinum and Sheila: No dominant adenopathy or fluid collection. Pleura: No effusion or pneumothorax. Heart: The heart is not dilated. Moderately severe coronary artery calcification. No pericardial eff usion. Aorta: Thoracic aorta non-dilated. Atherosclerosis. Lymph nodes: Within normal limits. Soft tissues: Surgical clips in the left chest wall and left axilla. Status post left mastectomy. Bones:No aggressive osseous lesions. ABDOMEN: Liver: There is diffuse fatty infiltration. No measurable mass. Portal, Superior Mesenteric, and Splenic Veins: Unremarkable. Gallbladder and Biliary Tract: Status post cholecystectomy. No biliary ductal dilatation. Pancreas: Normal density, no abnormal calcifications or inflammatory process. Spleen: Normal. Adrenals: No masses seen. Kidneys: Normal size, contour and axis. No radiodense stones or obstructive uropathy. Bilateral renal cysts. No follow-up recommended. Abdominal Aorta: Abdominal portion non-dilated. Atherosclerosis. Bowel: No obstruction or bowel wall thickening. No evidence of appendicitis. Peritoneal Cavity: No ascites, collection or mesenteric inflammatory response. No free air. Lymph Nodes: Within normal limits. Bones: No aggressive osseous lesions. Soft Tissues: Unremarkable. PELVIS: Bladder: Symmetric distention, no gross wall thickening. Reproductive Organs: Unremarkable as visualized. Lymph Nodes: Within normal limits. Bones: No aggressive osseous lesions. IMPRESSION: 1. No evidence of abdominal or pelvic metastatic disease. 2. Stable pulmonary nodules. RADIATION DOSE DELIVERED: 1,835.33mGy.cm Total DLP DATA REPOSITORY: All CT scans at this facility are submitted to the National Radiology Data Registry (NRDR) Dose Index Registry (DIR) with the [employer] (ACR). RADIATION OPTIMIZATION: All CT scans at this facility use at least one of these dose optimization te chniques: automated exposure control; mA and/or kV adjustment per patient size (includes targeted exa ms where dose is matched to clinical indication); or iterative reconstruction.
[2020-06-26 08:48] LABS: Abs Immature Grans 0.02 10^3/uL (0.0-0.06); Absolute Basophil Count 0.05 10^3/uL (0.0-0.2); Absolute Eosinophil Count 0.11 10^3/uL (0.0-0.7); Absolute Lymphocyte Count 1.15 10^3/uL (1.2-3.4); Absolute Monocyte Count 0.38 10^3/uL (0.1-0.8); Absolute Neutrophil Count 3.16 10^3/uL (1.2-6.7); Eosinophils % 2.3; HGB 12.1 g/dL (11.2-15.7); Immature Grans % 0.4; Lymphocytes % 23.6; MCH 32.6 pg (27.0-33.0); MCHC 33.6 % (32.0-36.0); MPV 9.8 fL (8.0-11.0); Monocytes % 7.8; Neutrophils % 64.9; Nucleated RBC 0 %; Platelet Count 166 10^3/uL (130-400); RBC 3.71 10^6/uL (3.93-5.22); RDW 14.6 % (11.7-14.6); RDW-SD 51.8 fL; WBC 4.87 10^3/uL (4.4-10.8)
[2020-06-26] MEDS: Omnipaque 350 MG/ML 50 ML BTL IJ (08:48)
[2020-06-26] MEDS: Breeza Beverage 473 ML BTL PO ×2 (08:50)
[2020-06-26 09:06] LABS: ALT 26 U/L (14-59); AST 18 U/L (15-37); Albumin 3.6 g/dL (3.4-5.0); Alkaline Phosphatase 55 U/L (46-116); Anion Gap 9.6 mmol/L (3-11); BUN 14 mg/dL (7-18); Bilirubin, Total 0.5 mg/dL (0.2-1.0); CO2 26.4 mmol/L (21.0-32.0); CREATININE 0.86 mg/dL (0.55-1.02); Calcium 8.4 mg/dL (8.5-10.1); Chloride 106 mmol/L (98-107); Glucose 112 mg/dL (74-106); Potassium 4.2 mmol/L (3.5-5.1); Sodium 142 mmol/L (136-145); Total Protein 6.8 g/dL (6.4-8.2)
[2020-06-26] MEDS: Normal Saline - Diluent 50 ML VIAL IV (10:37)
[2020-06-26] MEDS: Omnipaque 350 MG/ML 100 ML BTL IJ (10:38)
[2020-06-27 17:35] LABS: Cancer Ag 15-3 28 U/mL (<30)
== END 2020-06-26 02:21 ==
PROVIDERS: PCP Family Medicine; Visit Provider Internal Medicine Hematology & Oncology
DX: C50.912 Malignant neoplasm of unspecified site of left female breast (principal); R91.8 Other nonspecific abnormal finding of lung field; Z90.12 Acquired absence of left breast and nipple; C79.31 Secondary malignant neoplasm of brain
CPT/HCPCS: 74177; 80053; 86304; 71260; 85025; 86300; J3490; Q9967

== ENCOUNTER 2020-08-15 15:15 | Outpatient (REF) | payer MEDICARE, MEDICAID, SELFPAY ==
[2020-08-15 17:30] LABS: Abs Immature Grans 0.02 10^3/uL (0.0-0.06); Absolute Basophil Count 0.01 10^3/uL (0.0-0.2); Absolute Eosinophil Count 0.03 10^3/uL (0.0-0.7); Absolute Lymphocyte Count 1.06 10^3/uL (1.2-3.4); Absolute Monocyte Count 0.31 10^3/uL (0.1-0.8); Basophils % 0.3; Eosinophils % 0.9; HCT 38.8 % (36.0-46.0); HGB 13.1 g/dL (11.2-15.7); Immature Grans % 0.6; Lymphocytes % 30.9; MCH 33.3 pg (27.0-33.0); MCHC 33.8 % (32.0-36.0); MCV 98.7 fL (80-95); MPV 10.2 fL (8.0-11.0); Neutrophils % 58.3; Nucleated RBC 0 %; Platelet Count 157 10^3/uL (130-400); RBC 3.93 10^6/uL (3.93-5.22); RDW 14.9 % (11.7-14.6); RDW-SD 54.5 fL; WBC 3.43 10^3/uL (4.4-10.8)
[2020-08-15 18:15] LABS: ALT 34 U/L (14-59); AST 26 U/L (15-37); Albumin 3.6 g/dL (3.4-5.0); Alkaline Phosphatase 55 U/L (46-116); Anion Gap 12.7 mmol/L (3-11); BUN 17 mg/dL (7-18); Bilirubin, Total 0.6 mg/dL (0.2-1.0); CO2 25.3 mmol/L (21.0-32.0); CREATININE 0.9 mg/dL (0.55-1.02); Chloride 103 mmol/L (98-107); Glucose 114 mg/dL (74-106); Potassium 3.5 mmol/L (3.5-5.1); Sodium 141 mmol/L (136-145); Total Protein 6.9 g/dL (6.4-8.2)
[2020-08-17 14:17] LABS: Cancer Ag 15-3 32 U/mL (<30)
== END 2020-08-15 15:16 | disposition home or self-care (01) ==
LOC: LBN 15:15
PROVIDERS: PCP Family Medicine; Visit Provider Internal Medicine Hematology & Oncology
DX: C79.31 Secondary malignant neoplasm of brain (principal); C50.912 Malignant neoplasm of unspecified site of left female breast; C77.1 Secondary and unspecified malignant neoplasm of intrathoracic lymph nodes; Z92.21 Personal history of antineoplastic chemotherapy
CPT/HCPCS: 80053; 86304; 85025; 86300

== ENCOUNTER 2020-09-11 11:55 | Outpatient (REF) | payer MEDICARE, MEDICAID, SELFPAY ==
[2020-09-11 15:27] LABS: Abs Immature Grans 0.02 10^3/uL (0.0-0.06); Absolute Basophil Count 0.05 10^3/uL (0.0-0.2); Absolute Eosinophil Count 0.15 10^3/uL (0.0-0.7); Absolute Lymphocyte Count 1.01 10^3/uL (1.2-3.4); Absolute Monocyte Count 0.36 10^3/uL (0.1-0.8); Absolute Neutrophil Count 2.21 10^3/uL (1.2-6.7); Basophils % 1.3; Eosinophils % 3.9; HCT 36.5 % (36.0-46.0); HGB 11.9 g/dL (11.2-15.7); Immature Grans % 0.5; Lymphocytes % 26.6; MCH 33.5 pg (27.0-33.0); MCHC 32.6 % (32.0-36.0); MCV 102.8 fL (80-95); Monocytes % 9.5; Neutrophils % 58.2; Nucleated RBC 0 %; Platelet Count 207 10^3/uL (130-400); RBC 3.55 10^6/uL (3.93-5.22); RDW 15.2 % (11.7-14.6); RDW-SD 56.9 fL
[2020-09-11 16:05] LABS: ALT 28 U/L (14-59); AST 21 U/L (15-37); Albumin 3.5 g/dL (3.4-5.0); Alkaline Phosphatase 60 U/L (46-116); Anion Gap 8.6 mmol/L (3-11); BUN 16 mg/dL (7-18); Bilirubin, Total 0.5 mg/dL (0.2-1.0); CO2 28.4 mmol/L (21.0-32.0); CREATININE 0.9 mg/dL (0.55-1.02); Calcium 9.7 mg/dL (8.5-10.1); Chloride 103 mmol/L (98-107); Glucose 139 mg/dL (74-106); Potassium 4.3 mmol/L (3.5-5.1); Sodium 140 mmol/L (136-145); Total Protein 6.9 g/dL (6.4-8.2)
[2020-09-12 16:45] LABS: Cancer Ag 15-3 32 U/mL (<30)
== END 2020-09-11 11:56 | disposition home or self-care (01) ==
LOC: LBN 11:55
PROVIDERS: PCP Family Medicine; Visit Provider Internal Medicine Hematology & Oncology
DX: C50.912 Malignant neoplasm of unspecified site of left female breast (principal)
CPT/HCPCS: 80053; 86304; 85025; 86300

== ENCOUNTER 2020-10-02 01:27 | Outpatient (CLI) | payer MEDICARE, MEDICAID, SELFPAY ==
--- NOTE | 2020-10-02 | DI.CT_ITS ---
EXAM: CT CHEST/ABD/PEL W CLINICAL HISTORY: BREAST CA METASTASIZED TO BRAIN,RESTAGING EXAM, ON HORMONAL THERAPY. TECHNIQUE: Imaging Protocol: Axial computed tomography images with coronal and sagittal reformatted images were created and reviewed CONTRAST MATERIAL: Intravenous: Omnipaque 350 Contrast volume:100 ml Oral: None COMPARISON: CT CT CHEST PE CTA from 05/23/[address] CHEST/ABD/PEL W from 04/22/[address] CHEST/ABD/PEL W from 06/26/[address] CHEST/ABD/PEL W from 06/26/2020 FINDINGS: CHEST: LUNGS: The pleural base nodular infiltrate in the posterior basal segment of the right lower lobe is again unchanged. Also unchanged from 2019. I note this patient had pulmonary emboli in 2019. Tiny sub pleural based density lateral aspect of the right upper lobe is also unchanged from prior st udies as is a small benign-appearing 3 millimeter nodular density in the right middle lobe region. T here are no new nodules in the right lung. In the lateral aspect of the left upper lobe there is a 2-3 millimeter pleural based nodular density which was not evident on prior studies and therefore possibly significant despite its small size. Mi ld increased benign-appearing markings in the lingular segment left lung are unchanged. No pleural e ffusions. No new findings in the trachea and mainstem bronchi. MEDIASTINUM: There is no hilar nor mediastinal adenopathy. CARDIAC: Heart size is normal. There is no pericardial effusion.Caliber of the thoracic aorta is wit hin normal limits. OSSEOUS: No significant osseous lesions.. ABDOMEN: There is no ascites. LIVER: Hepatic steatosis again noted. There are no obvious discrete focal hepatic lesions. GALLBLADDER/BILIARY: Gallbladder is again noted be surgically absent. CBD is not dilated. PANCREAS: No evidence of pancreatic mass nor dilatation of the pancreatic duct. SPLEEN: Spleen size is upper normal. Unchanged benign splenule is again noted anterior to the spleen . Splenic and portal veins are patent. ADRENALS: There are no significant adrenal masses. KIDNEYS: No calculi nor hydronephrosis. No solid renal masses. No cysts evident. ABDOMINAL AORTA: The abdominal aorta is heavily calcified. There is mild fusiform dilatation of the infrarenal abdominal aorta but maximum diameters only 2.3 cm. Common iliac arteries are calcified bu t not enlarged. LYMPH NODES: There is no retroperitoneal nor paraaortic adenopathy. ABDOMINAL WALL/GI: No evidence of significant anterior abdominal wall hernia. No bowel obstruction. PELVIS: LYMPH NODES: There is no intrapelvic nor inguinal adenopathy. GI: No evidence of appendicitis.No evidence of sigmoid diverticulitis. URINARY BLADDER: No calculi nor masses evident REPRODUCTIVE: Uterus and adnexal regions unremarkable. OSSEOUS: No significant osseous lesions. IMPRESSION: 1. No evidence of abdominal or pelvic metastatic disease. Gallbladder is again noted be surgically a bsent. The biliary tree is not dilated. Hepatic steatosis again noted. 2. The nodular infiltrate in the right lung base posterior basal segment the right lower lobe remains stable from the mammograms listed above. Also tiny right middle lobe nodule unchanged. 3. In the opposite-left lung there is a small 3 millimeter pleural-based nodule evident in the latera l aspect of the left upper lobe which has benign appearance but was not evident on prior studies and therefore of some concern. No other new left lung findings nor pleural effusions. There is no intra thoracic adenopathy. 4. No new osseous findings. RADIATION DOSE DELIVERED: 1135.14 mGy.cm Total DLP DATA REPOSITORY: All CT scans at this facility are submitted to the National Radiology Data Registry (NRDR) Dose Index Registry (DIR) with the [employer] (ACR). RADIATION OPTIMIZATION: All CT scans at this facility use at least one of these dose optimization te chniques: automated exposure control; mA and/or kV adjustment per patient size (includes targeted exa ms where dose is matched to clinical indication); or iterative reconstruction.
[2020-10-02] MEDS: Breeza Beverage 473 ML BTL PO (09:43)
[2020-10-02] MEDS: Omnipaque 350 MG/ML 50 ML BTL PO (09:44)
[2020-10-02] MEDS: Normal Saline - Diluent 50 ML VIAL IV ×2 (10:00→10:53)
[2020-10-02] MEDS: Omnipaque 350 MG/ML 100 ML BTL IJ (10:51)
== END 2020-10-02 01:47 ==
PROVIDERS: PCP Family Medicine; Visit Provider Internal Medicine Hematology & Oncology
DX: C50.912 Malignant neoplasm of unspecified site of left female breast (principal); K76.0 Fatty (change of) liver, not elsewhere classified; R91.1 Solitary pulmonary nodule; C79.31 Secondary malignant neoplasm of brain; Z92.21 Personal history of antineoplastic chemotherapy; Z90.12 Acquired absence of left breast and nipple
CPT/HCPCS: 74177; 80053; 86304; 71260; 85025; 86300; J3490; Q9967

== ENCOUNTER 2020-10-08 15:28 | Outpatient (REF) | payer MEDICARE, MEDICAID, SELFPAY ==
[2020-10-08 16:18] LABS: Abs Immature Grans 0.01 10^3/uL (0.0-0.06); Absolute Basophil Count 0.05 10^3/uL (0.0-0.2); Absolute Eosinophil Count 0.12 10^3/uL (0.0-0.7); Absolute Monocyte Count 0.32 10^3/uL (0.1-0.8); Absolute Neutrophil Count 2.83 10^3/uL (1.2-6.7); Basophils % 1.1; Eosinophils % 2.7; HCT 41.9 % (36.0-46.0); HGB 13.9 g/dL (11.2-15.7); Immature Grans % 0.2; Lymphocytes % 24.8; MCH 32.9 pg (27.0-33.0); MCHC 33.2 % (32.0-36.0); MCV 99.1 fL (80-95); MPV 10.7 fL (8.0-11.0); Monocytes % 7.2; Nucleated RBC 0 %; Platelet Count 194 10^3/uL (130-400); RBC 4.23 10^6/uL (3.93-5.22); RDW 13.5 % (11.7-14.6); RDW-SD 49.2 fL; WBC 4.43 10^3/uL (4.4-10.8)
[2020-10-08 16:44] LABS: ALT 34 U/L (14-59); AST 24 U/L (15-37); Albumin 4.2 g/dL (3.4-5.0); Alkaline Phosphatase 83 U/L (46-116); Anion Gap 11.2 mmol/L (3-11); BUN 13 mg/dL (7-18); Bilirubin, Total 0.5 mg/dL (0.2-1.0); CO2 27.8 mmol/L (21.0-32.0); CREATININE 0.8 mg/dL (0.55-1.02); Calcium 9.5 mg/dL (8.5-10.1); Chloride 106 mmol/L (98-107); Glucose 127 mg/dL (74-106); Potassium 4.3 mmol/L (3.5-5.1); Sodium 145 mmol/L (136-145); Total Protein 7.8 g/dL (6.4-8.2)
[2020-10-09 17:56] LABS: Cancer Ag 15-3 35 U/mL (<30)
== END 2020-10-08 15:29 | disposition home or self-care (01) ==
LOC: LBN 15:28
PROVIDERS: PCP Family Medicine; Visit Provider Internal Medicine Hematology & Oncology
DX: C50.912 Malignant neoplasm of unspecified site of left female breast (principal); C79.31 Secondary malignant neoplasm of brain; C77.1 Secondary and unspecified malignant neoplasm of intrathoracic lymph nodes
CPT/HCPCS: 80053; 86304; 85025; 86300

== ENCOUNTER 2020-11-29 02:33 | Outpatient (CLI) | payer MEDICARE, MEDICAID, SELFPAY ==
[2020-11-29 13:27] LABS: Abs Immature Grans 0.02 10^3/uL (0.0-0.06); Absolute Basophil Count 0.05 10^3/uL (0.0-0.2); Absolute Eosinophil Count 0.11 10^3/uL (0.0-0.7); Absolute Lymphocyte Count 1.45 10^3/uL (1.2-3.4); Absolute Monocyte Count 0.49 10^3/uL (0.1-0.8); Absolute Neutrophil Count 3.07 10^3/uL (1.2-6.7); Eosinophils % 2.1; HCT 39.7 % (36.0-46.0); HGB 13.4 g/dL (11.2-15.7); Immature Grans % 0.4; Lymphocytes % 27.9; MCH 32.9 pg (27.0-33.0); MCHC 33.8 % (32.0-36.0); MCV 97.5 fL (80-95); MPV 9.8 fL (8.0-11.0); Monocytes % 9.4; Neutrophils % 59.2; Nucleated RBC 0 %; Platelet Count 170 10^3/uL (130-400); RBC 4.07 10^6/uL (3.93-5.22); RDW 13.4 % (11.7-14.6); RDW-SD 47.5 fL; WBC 5.19 10^3/uL (4.4-10.8)
[2020-11-29 13:39] LABS: ALT 34 U/L (14-59); AST 18 U/L (15-37); Albumin 3.9 g/dL (3.4-5.0); Alkaline Phosphatase 79 U/L (46-116); Anion Gap 8.6 mmol/L (3-11); BUN 18 mg/dL (7-18); Bilirubin, Total 0.5 mg/dL (0.2-1.0); CO2 28.4 mmol/L (21.0-32.0); CREATININE 0.9 mg/dL (0.55-1.02); Calcium 9.3 mg/dL (8.5-10.1); Chloride 105 mmol/L (98-107); Glucose 134 mg/dL (74-106); Potassium 4.5 mmol/L (3.5-5.1); Sodium 142 mmol/L (136-145); Total Protein 7.5 g/dL (6.4-8.2)
[2020-11-29 15:05] LABS: Bilirubin Negative (Negative); Blood Moderate (Negative); Clarity Clear (Clear); Glucose 500 mg/dL (Negative); Ketones Negative (Negative); Leukocyte Esterase Trace (Negative); Nitrite Negative (Negative); Specific Gravity 1.025 (1.005-1.025); Urobilinogen 0.2 EU/dL (Up TO 0.2); pH 5.5 (5-8)
[2020-11-29 15:14] LABS: Bacteria Moderate HPF (Negative); C & S Indicated? Yes; Casts Negative LPF (Negative); Crystals Negative HPF (Negative); Epithelial Cells Few HPF (Negative); Mucus Negative (Negative); Other Cells Negative (Negative); RBC 20-50 HPF (0-2)
[2020-11-29 15:15] LABS: TSH 1.89 uIU/mL (0.36-3.74)
[2020-12-02 11:01] LABS: Cancer Ag 15-3 29 U/mL (<30)
== END 2020-11-29 02:34 | disposition home or self-care (01) ==
LOC: LBO 02:34
PROVIDERS: Nurse Practitioner Family; PCP Family Medicine; Visit Provider Internal Medicine Hematology & Oncology
DX: C50.912 Malignant neoplasm of unspecified site of left female breast (principal); C79.31 Secondary malignant neoplasm of brain; R53.83 Other fatigue
CPT/HCPCS: 36415; 80053; 86304; 81003; 81015; 84443; 85025; 86300; 87086

== ENCOUNTER 2020-12-27 03:01 | Outpatient (CLI) | payer MEDICARE, MEDICAID, SELFPAY ==
[2020-12-27 09:36] LABS: Abs Immature Grans 0.02 10^3/uL (0.0-0.06); Absolute Basophil Count 0.04 10^3/uL (0.0-0.2); Absolute Eosinophil Count 0.11 10^3/uL (0.0-0.7); Absolute Lymphocyte Count 1.26 10^3/uL (1.2-3.4); Absolute Neutrophil Count 3.17 10^3/uL (1.2-6.7); Basophils % 0.8; Eosinophils % 2.2; HCT 39.7 % (36.0-46.0); HGB 13.3 g/dL (11.2-15.7); Immature Grans % 0.4; Lymphocytes % 25.2; MCH 32.9 pg (27.0-33.0); MCHC 33.5 % (32.0-36.0); MCV 98.3 fL (80-95); MPV 9.7 fL (8.0-11.0); Neutrophils % 63.4; Nucleated RBC 0 %; Platelet Count 166 10^3/uL (130-400); RBC 4.04 10^6/uL (3.93-5.22); RDW 13.4 % (11.7-14.6); RDW-SD 48.1 fL
[2020-12-27 09:55] LABS: ALT 27 U/L (14-59); AST 15 U/L (15-37); Albumin 3.7 g/dL (3.4-5.0); Alkaline Phosphatase 74 U/L (46-116); Anion Gap 8.2 mmol/L (3-11); BUN 16 mg/dL (7-18); Bilirubin, Total 0.5 mg/dL (0.2-1.0); CO2 26.8 mmol/L (21.0-32.0); CREATININE 0.8 mg/dL (0.55-1.02); Chloride 107 mmol/L (98-107); Glucose 160 mg/dL (74-106); Sodium 142 mmol/L (136-145); Total Protein 7.4 g/dL (6.4-8.2)
[2020-12-28 12:04] LABS: Cancer Ag 15-3 33 U/mL (<30)
== END 2020-12-27 03:02 | disposition home or self-care (01) ==
LOC: LBO 03:02
PROVIDERS: PCP Family Medicine; Visit Provider Internal Medicine Hematology & Oncology
DX: C50.912 Malignant neoplasm of unspecified site of left female breast (principal); C79.31 Secondary malignant neoplasm of brain
CPT/HCPCS: 36415; 80053; 86304; 85025; 86300

== ENCOUNTER 2021-01-20 03:13 | Outpatient (CLI) | payer MEDICARE, MEDICAID, SELFPAY ==
[2021-01-20 10:32] LABS: Abs Immature Grans 0.02 10^3/uL (0.0-0.06); Absolute Basophil Count 0.05 10^3/uL (0.0-0.2); Absolute Eosinophil Count 0.11 10^3/uL (0.0-0.7); Absolute Lymphocyte Count 1.09 10^3/uL (1.2-3.4); Absolute Neutrophil Count 2.86 10^3/uL (1.2-6.7); Basophils % 1.1; Eosinophils % 2.5; HCT 38.8 % (36.0-46.0); Immature Grans % 0.5; Lymphocytes % 24.6; MCH 33.1 pg (27.0-33.0); MCHC 33.5 % (32.0-36.0); MCV 98.7 fL (80-95); MPV 9.5 fL (8.0-11.0); Monocytes % 6.8; Neutrophils % 64.5; Nucleated RBC 0 %; Platelet Count 152 10^3/uL (130-400); RBC 3.93 10^6/uL (3.93-5.22); RDW 13.5 % (11.7-14.6); RDW-SD 48.6 fL; WBC 4.43 10^3/uL (4.4-10.8)
[2021-01-20 10:34] LABS: Bilirubin Negative (Negative); Blood Small (Negative); Clarity Clear (Clear); Glucose >=1000 mg/dL (Negative); Ketones Negative (Negative); Leukocyte Esterase Negative (Negative); Nitrite Negative (Negative); Specific Gravity 1.015 (1.005-1.025); Urobilinogen 0.2 EU/dL (Up TO 0.2); pH 5.5 (5-8)
[2021-01-20 10:44] LABS: WBC 20-50 HPF (0-5)
[2021-01-20 10:45] LABS: Bacteria Rare HPF (Negative); Epithelial Cells Few HPF (Negative)
[2021-01-20 10:46] LABS: ALT 26 U/L (14-59); AST 22 U/L (15-37); Albumin 3.6 g/dL (3.4-5.0); Alkaline Phosphatase 62 U/L (46-116); Anion Gap 10.9 mmol/L (3-11); BUN 15 mg/dL (7-18); Bilirubin, Total 0.6 mg/dL (0.2-1.0); CO2 27.1 mmol/L (21.0-32.0); CREATININE 0.9 mg/dL (0.55-1.02); Chloride 106 mmol/L (98-107); Glucose 161 mg/dL (74-106); Potassium 3.9 mmol/L (3.5-5.1); Sodium 144 mmol/L (136-145); Total Protein 7.3 g/dL (6.4-8.2)
[2021-01-20 10:48] LABS: C & S Indicated? Yes; Casts Negative LPF (Negative); Mucus Negative (Negative)
[2021-01-21 18:29] LABS: Cancer Ag 15-3 32 U/mL (<30)
== END 2021-01-20 03:14 | disposition home or self-care (01) ==
PROVIDERS: PCP Family Medicine; Visit Provider Nurse Practitioner Family
DX: C50.912 Malignant neoplasm of unspecified site of left female breast (principal); C79.31 Secondary malignant neoplasm of brain
CPT/HCPCS: 36415; 80053; 86304; 81003; 81015; 85025; 86300; 87086

== ENCOUNTER 2021-02-14 04:49 | Outpatient (CLI) | payer MEDICARE, MEDICAID, SELFPAY ==
--- NOTE | 2021-02-14 | DI.CT_ITS ---
Exam(s) CT CHEST/ABD/PEL W EXAM: CT CHEST/ABD/PEL W CLINICAL HISTORY: BREAST CA METS TO INTRATHORACIC LN LT, C50.912, C77.1. TECHNIQUE: Imaging Protocol: Axial computed tomography images with coronal and sagittal reformatted images were created and reviewed CONTRAST MATERIAL: Intravenous: Omnipaque 350 Contrast volume:100 ml Oral: yes COMPARISON: CT CT CHEST/ABD/PEL W from 10/02/2020 FINDINGS: CHEST: A chest CT was ordered but inadvertently not performed. Patient will return at a later date to comple te the study. ABDOMEN: Liver: Enlarged. Diffuse fatty infiltration.. No measurable mass. Gallbladder and biliary tract: Status post cholecystectomy. Pancreas: Normal density, no abnormal calcifications or inflammatory process. Spleen: Normal. Small accessory spleen. Kidneys: Normal size, contour and axis. No radiodense stones or obstructive uropathy. No masses seen. Small bilateral cysts. Adrenal glands: No masses seen. Aorta: Abdominal portion non-dilated. Atherosclerotic changes abdominal aorta and iliac arteries.. Lymph nodes: Within normal limits. Soft tissues: Unremarkable. PELVIS: Bladder: Symmetric distention, no gross wall thickening. Bowel: No obstruction or bowel wall thickening. Peritoneal cavity: No ascites, collection or mesenteric inflammatory response. Bones: Degenerative changes, unremarkable for age.. Reproductive organs: Within normal limits. IMPRESSION: No evidence of metastatic disease in the abdomen or pelvis. RADIATION DOSE DELIVERED: 1,039.63mGy.cm Total DLP DATA REPOSITORY: All CT scans at this facility are submitted to the National Radiology Data Registry (NRDR) Dose Index Registry (DIR) with the [employer] (ACR). RADIATION OPTIMIZATION: All CT scans at this facility use at least one of these dose optimization te chniques: automated exposure control; mA and/or kV adjustment per patient size (includes targeted exa ms where dose is matched to clinical indication); or iterative reconstruction.
[2021-02-14] MEDS: Omnipaque 350 MG/ML 50 ML BTL IJ (08:45)
[2021-02-14] MEDS: Breeza Beverage 473 ML BTL PO ×2 (08:45→08:46)
[2021-02-14 09:12] LABS: Abs Immature Grans 0.02 10^3/uL (0.0-0.06); Absolute Basophil Count 0.07 10^3/uL (0.0-0.2); Absolute Lymphocyte Count 1.23 10^3/uL (1.2-3.4); Absolute Monocyte Count 0.36 10^3/uL (0.1-0.8); Absolute Neutrophil Count 3.11 10^3/uL (1.2-6.7); Basophils % 1.4; HCT 37.3 % (36.0-46.0); HGB 12.2 g/dL (11.2-15.7); Immature Grans % 0.4; Lymphocytes % 25.2; MCH 32.5 pg (27.0-33.0); MCHC 32.7 % (32.0-36.0); MCV 99.5 fL (80-95); MPV 9.6 fL (8.0-11.0); Monocytes % 7.4; Neutrophils % 63.6; Nucleated RBC 0 %; Platelet Count 140 10^3/uL (130-400); RBC 3.75 10^6/uL (3.93-5.22); RDW 13.5 % (11.7-14.6); RDW-SD 48.7 fL; WBC 4.89 10^3/uL (4.4-10.8)
[2021-02-14 09:24] LABS: ALT 28 U/L (14-59); AST 18 U/L (15-37); Albumin 3.5 g/dL (3.4-5.0); Alkaline Phosphatase 64 U/L (46-116); Anion Gap 6.2 mmol/L (3-11); BUN 14 mg/dL (7-18); Bilirubin, Total 0.4 mg/dL (0.2-1.0); CO2 29.8 mmol/L (21.0-32.0); CREATININE 0.9 mg/dL (0.55-1.02); Calcium 8.9 mg/dL (8.5-10.1); Chloride 107 mmol/L (98-107); Glucose 136 mg/dL (74-106); Potassium 4.2 mmol/L (3.5-5.1); Sodium 143 mmol/L (136-145); Total Protein 7.1 g/dL (6.4-8.2)
[2021-02-14] MEDS: Omnipaque 350 MG/ML 100 ML BTL IJ (10:23)
[2021-02-18 11:46] LABS: Cancer Ag 15-3 30 U/mL (<30)
== END 2021-02-14 05:09 ==
PROVIDERS: PCP Family Medicine; Visit Provider Internal Medicine Hematology & Oncology
DX: C50.912 Malignant neoplasm of unspecified site of left female breast (principal); C79.31 Secondary malignant neoplasm of brain; C77.1 Secondary and unspecified malignant neoplasm of intrathoracic lymph nodes; B37.9 Candidiasis, unspecified
CPT/HCPCS: 74177; 80053; 86304; 71260; 85025; 86300; J3490; Q9967

== ENCOUNTER 2021-03-28 02:02 | Outpatient (CLI) | payer MEDICARE, MEDICAID, SELFPAY ==
[2021-03-28 14:09] LABS: Abs Immature Grans 0.04 10^3/uL (0.0-0.06); Absolute Basophil Count 0.07 10^3/uL (0.0-0.2); Absolute Eosinophil Count 0.12 10^3/uL (0.0-0.7); Absolute Lymphocyte Count 1.38 10^3/uL (1.2-3.4); Absolute Monocyte Count 0.45 10^3/uL (0.1-0.8); Basophils % 1.2; HCT 38.5 % (36.0-46.0); HGB 13.1 g/dL (11.2-15.7); Immature Grans % 0.7; Lymphocytes % 23.5; MCH 33.6 pg (27.0-33.0); MCV 98.7 fL (80-95); MPV 9.7 fL (8.0-11.0); Monocytes % 7.7; Neutrophils % 64.9; Nucleated RBC 0 %; Platelet Count 146 10^3/uL (130-400); RDW 13.2 % (11.7-14.6); RDW-SD 47.3 fL; WBC 5.86 10^3/uL (4.4-10.8)
[2021-03-28 14:25] LABS: ALT 31 U/L (14-59); AST 25 U/L (15-37); Albumin 3.8 g/dL (3.4-5.0); Alkaline Phosphatase 61 U/L (46-116); Anion Gap 9.6 mmol/L (3-11); BUN 16 mg/dL (7-18); Bilirubin, Total 0.5 mg/dL (0.2-1.0); CO2 27.4 mmol/L (21.0-32.0); CREATININE 0.9 mg/dL (0.55-1.02); Calcium 8.9 mg/dL (8.5-10.1); Chloride 106 mmol/L (98-107); Glucose 123 mg/dL (74-106); Potassium 3.7 mmol/L (3.5-5.1); Sodium 143 mmol/L (136-145); Total Protein 7.5 g/dL (6.4-8.2)
[2021-03-29 13:10] LABS: Cancer Ag 15-3 30 U/mL (<30)
== END 2021-03-28 02:03 | disposition home or self-care (01) ==
LOC: LBO 02:02
PROVIDERS: PCP Family Medicine; Visit Provider Internal Medicine Hematology & Oncology
DX: C50.912 Malignant neoplasm of unspecified site of left female breast (principal); C79.31 Secondary malignant neoplasm of brain
CPT/HCPCS: 36415; 80053; 86304; 85025; 86300

== ENCOUNTER 2021-04-18 00:40 | Outpatient (CLI) | payer MEDICARE, MEDICAID, SELFPAY ==
--- NOTE | 2021-04-18 | DI.MRI_ITS ---
Exam(s) MR BRAIN WO/W EXAM: MR BRAIN WO/W CLINICAL HISTORY: SECONDARY BRAIN CA, BREAST CA,F/U S/P THERAPY. TECHNIQUE: Multiplanar multisequence MRI was performed. COMPARISON: CT CT HEAD WO from 02/04/[address] HEAD WO from 02/04/2019 FINDINGS: MR examination of the brain was performed according to the usual protocol with additional post contra st axial and coronal T1 weighted imaging and MP rage imaging. Patient reportedly has history of prior brain metastasis. A prior CT January 2019 shows decreased att enuation in right frontal region. On today's examination, there is fluid signal seen in this region with a cysts central 18 x 14 millimeter in diameter mildly enhancing lesion. There is some blooming on susceptibility weighted imaging in the central lesion which may represent microhemorrhage. Little or no mass effect seen. No other significant mass lesion or enhancing lesion identified in the brain. No other significant s ignal abnormalities apart from minimal periventricular signal changes, presumably age-related. The o rbital and temporal bone structures appear intact. There is normal flow void in the [id number] vasculature. There is no evidence of cerebral infarction on diffusion-weighted imaging. IMPRESSION: The appearance of a right frontal lobe subcortical lesion is consistent with treated metastatic lesio n. No prior brain MRI available for comparison. DATA REPOSITORY:
[2021-04-18] MEDS: Normal Saline Flush 10 ML SYR IVP (09:10)
[2021-04-18] MEDS: Gadoterate meglumine 20 ML VIAL 18 ML IVP (09:10)
== END 2021-04-18 01:00 ==
PROVIDERS: PCP Family Medicine; Visit Provider Radiology Radiation Oncology
DX: C79.31 Secondary malignant neoplasm of brain (principal); C50.912 Malignant neoplasm of unspecified site of left female breast
CPT/HCPCS: 70553

== ENCOUNTER 2021-04-28 09:39 | Outpatient (CLI) | payer MEDICARE, MEDICAID, SELFPAY ==
[2021-04-28 13:35] LABS: Abs Immature Grans 0.02 10^3/uL (0.0-0.06); Absolute Basophil Count 0.05 10^3/uL (0.0-0.2); Absolute Eosinophil Count 0.12 10^3/uL (0.0-0.7); Absolute Lymphocyte Count 1.37 10^3/uL (1.2-3.4); Absolute Monocyte Count 0.45 10^3/uL (0.1-0.8); Absolute Neutrophil Count 3.04 10^3/uL (1.2-6.7); Eosinophils % 2.4; HCT 38.5 % (36.0-46.0); HGB 12.8 g/dL (11.2-15.7); Immature Grans % 0.4; Lymphocytes % 27.1; MCHC 33.2 % (32.0-36.0); MCV 99.2 fL (80-95); MPV 9.9 fL (8.0-11.0); Monocytes % 8.9; Neutrophils % 60.2; Nucleated RBC 0 %; Platelet Count 149 10^3/uL (130-400); RBC 3.88 10^6/uL (3.93-5.22); RDW 13.7 % (11.7-14.6); RDW-SD 49.7 fL; WBC 5.05 10^3/uL (4.4-10.8)
[2021-04-28 13:46] LABS: ALT 32 U/L (14-59); AST 27 U/L (15-37); Albumin 3.7 g/dL (3.4-5.0); Alkaline Phosphatase 64 U/L (46-116); Anion Gap 7.3 mmol/L (3-11); BUN 14 mg/dL (7-18); Bilirubin, Total 0.5 mg/dL (0.2-1.0); CO2 29.7 mmol/L (21.0-32.0); CREATININE 0.8 mg/dL (0.55-1.02); Calcium 8.9 mg/dL (8.5-10.1); Chloride 106 mmol/L (98-107); Glucose 125 mg/dL (74-106); Potassium 3.6 mmol/L (3.5-5.1); Sodium 143 mmol/L (136-145); Total Protein 7.4 g/dL (6.4-8.2)
[2021-04-29 10:01] LABS: Cancer Ag 15-3 33 U/mL (<30)
== END 2021-04-28 09:40 | disposition home or self-care (01) ==
LOC: LBO 09:40
PROVIDERS: PCP Family Medicine; Visit Provider Internal Medicine Hematology & Oncology
DX: C50.912 Malignant neoplasm of unspecified site of left female breast (principal); C79.31 Secondary malignant neoplasm of brain
CPT/HCPCS: 36415; 80053; 86304; 85025; 86300

== ENCOUNTER 2021-06-13 03:45 | Outpatient (CLI) | payer MEDICARE, SELFPAY ==
[2021-06-13 09:14] LABS: Abs Immature Grans 0.01 10^3/uL (0.0-0.06); Absolute Basophil Count 0.04 10^3/uL (0.0-0.2); Absolute Lymphocyte Count 0.97 10^3/uL (1.2-3.4); Absolute Monocyte Count 0.36 10^3/uL (0.1-0.8); Absolute Neutrophil Count 2.45 10^3/uL (1.2-6.7); Eosinophils % 2.5; HGB 12.4 g/dL (11.2-15.7); Immature Grans % 0.3; Lymphocytes % 24.7; MCH 33.5 pg (27.0-33.0); MCHC 32.6 % (32.0-36.0); MCV 102.7 fL (80-95); MPV 9.7 fL (8.0-11.0); Monocytes % 9.2; Neutrophils % 62.3; Nucleated RBC 0 %; Platelet Count 129 10^3/uL (130-400); RDW 13.8 % (11.7-14.6); RDW-SD 52.3 fL; WBC 3.93 10^3/uL (4.4-10.8)
[2021-06-13 09:27] LABS: ALT 26 U/L (14-59); AST 26 U/L (15-37); Albumin 3.5 g/dL (3.4-5.0); Alkaline Phosphatase 84 U/L (46-116); Anion Gap 7.2 mmol/L (3-11); BUN 14 mg/dL (7-18); Bilirubin, Total 0.6 mg/dL (0.2-1.0); CO2 29.8 mmol/L (21.0-32.0); CREATININE 0.9 mg/dL (0.55-1.02); Calcium 8.8 mg/dL (8.5-10.1); Chloride 107 mmol/L (98-107); Glucose 145 mg/dL (74-106); Potassium 3.9 mmol/L (3.5-5.1); Sodium 144 mmol/L (136-145); Total Protein 7.3 g/dL (6.4-8.2)
[2021-06-14 14:40] LABS: Cancer Ag 15-3 37 U/mL (<30)
== END 2021-06-13 03:46 | disposition home or self-care (01) ==
LOC: LBO 03:46
PROVIDERS: PCP Family Medicine; Visit Provider Internal Medicine Hematology & Oncology
DX: C79.31 Secondary malignant neoplasm of brain (principal); C50.912 Malignant neoplasm of unspecified site of left female breast
CPT/HCPCS: 36415; 80053; 86304; 85025; 86300

== ENCOUNTER 2021-07-07 00:23 | Outpatient (CLI) | payer MEDICARE, SELFPAY ==
--- NOTE | 2021-07-07 | DI.CT_ITS ---
Exam(s) CT CHEST/ABD/PEL W EXAM: CT CHEST/ABD/PEL W CLINICAL HISTORY: BREAST CA METASTASIZED TO MULT SITES,C50.912,RESTAGING EXAM,ON THERAPY. TECHNIQUE: Imaging Protocol: Axial computed tomography images with coronal and sagittal reformatted images were created and reviewed CONTRAST MATERIAL: Intravenous: Omnipaque 350 Contrast volume:100 ml Oral: yes COMPARISON: CT CT CHEST/ABD/PEL W from 02/14/[address] CHEST/ABD W from 02/17/2021 FINDINGS: CHEST: Tracheobronchial tree: Patent where visualized. Mediastinum and Sheila: No dominant adenopathy or fluid collection. Pulmonary parenchyma: Continued increase in size of mass in the medial basilar segment of the right l ower lobe, now approximately 2.6 by 3.3 x 1.7 cm. Stable area of nodular scarring in the posterior r ight lung base. Stable 3 millimeter nodule right middle lobe. No new masses. Mild underlying inter stitial changes. Pleura: No effusion or pneumothorax. Lymph nodes: Within normal limits. Aorta: Thoracic portion non-dilated. Atherosclerotic changes. Heart: Normal size. Coronary artery calcifications. Bones: Degenerative changes.. No lytic or blastic lesions. Soft tissues: Status post left mastectomy. Surgical clips left axilla. ABDOMEN: Liver: Fatty infiltration. Mildly enlarged. New 2 centimeter ill-defined mass left lobe. Gallbladder and biliary tract: Status post cholecystectomy. No biliary dilatation. Pancreas: Normal density, no abnormal calcifications or inflammatory process. Spleen: Normal. Kidneys: Normal size, contour and axis. No radiodense stones or obstructive uropathy. No masses seen. Small bilateral cysts. Adrenal glands: No masses seen. Aorta: Abdominal portion non-dilated. Atherosclerotic changes. Lymph nodes: Within normal limits. Soft tissues: Unremarkable. PELVIS: Bladder: Symmetric distention, no gross wall thickening. Bowel: No obstruction or bowel wall thickening. Appendix normal. Peritoneal cavity: No ascites, collection or mesenteric inflammatory response. Bones: Degenerative changes. No suspicious lesions. Reproductive organs: Within normal limits. IMPRESSION: 1. Mild interval increase in size of right lower lobe mass. 2. New 2 centimeter lesion in the left lobe of the liver suspicious for metastasis. RADIATION DOSE DELIVERED: 2,304.41mGy.cm Total DLP DATA REPOSITORY: All CT scans at this facility are submitted to the National Radiology Data Registry (NRDR) Dose Index Registry (DIR) with the [employer] (ACR). RADIATION OPTIMIZATION: All CT scans at this facility use at least one of these dose optimization te chniques: automated exposure control; mA and/or kV adjustment per patient size (includes targeted exa ms where dose is matched to clinical indication); or iterative reconstruction.
[2021-07-07] MEDS: Omnipaque 350 MG/ML 50 ML BTL PO (08:16)
[2021-07-07] MEDS: Breeza Beverage 473 ML BTL PO (08:17)
[2021-07-07] MEDS: Omnipaque 350 MG/ML 100 ML BTL IJ (09:43)
== END 2021-07-07 00:43 ==
LOC: DI 00:23
PROVIDERS: PCP Family Medicine; Visit Provider Internal Medicine Hematology & Oncology
DX: C50.912 Malignant neoplasm of unspecified site of left female breast (principal); C34.31 Malignant neoplasm of lower lobe, right bronchus or lung; C77.1 Secondary and unspecified malignant neoplasm of intrathoracic lymph nodes; Z92.21 Personal history of antineoplastic chemotherapy; Z92.3 Personal history of irradiation; K76.0 Fatty (change of) liver, not elsewhere classified; R16.0 Hepatomegaly, not elsewhere classified; K76.89 Other specified diseases of liver; Z90.49 Acquired absence of other specified parts of digestive tract; Z90.12 Acquired absence of left breast and nipple
CPT/HCPCS: 74177; 71260; J3490; Q9967

== ENCOUNTER 2021-08-01 04:04 | Outpatient (CLI) | payer MEDICARE, SELFPAY ==
[2021-08-01 12:03] LABS: Abs Immature Grans 0.02 10^3/uL (0.0-0.06); Absolute Basophil Count 0.05 10^3/uL (0.0-0.2); Absolute Eosinophil Count 0.12 10^3/uL (0.0-0.7); Absolute Lymphocyte Count 1.11 10^3/uL (1.2-3.4); Absolute Monocyte Count 0.61 10^3/uL (0.1-0.8); Absolute Neutrophil Count 3.04 10^3/uL (1.2-6.7); Eosinophils % 2.4; HCT 40.6 % (36.0-46.0); HGB 13.4 g/dL (11.2-15.7); Immature Grans % 0.4; Lymphocytes % 22.4; MCH 33.7 pg (27.0-33.0); MPV 9.8 fL (8.0-11.0); Monocytes % 12.3; Neutrophils % 61.5; Nucleated RBC 0 %; Platelet Count 139 10^3/uL (130-400); RBC 3.98 10^6/uL (3.93-5.22); RDW 12.6 % (11.7-14.6); RDW-SD 47.4 fL; WBC 4.95 10^3/uL (4.4-10.8)
[2021-08-01 12:16] LABS: ALT 36 U/L (14-59); AST 28 U/L (15-37); Albumin 3.7 g/dL (3.4-5.0); Alkaline Phosphatase 86 U/L (46-116); Anion Gap 8.9 mmol/L (3-11); BUN 13 mg/dL (7-18); Bilirubin, Total 0.6 mg/dL (0.2-1.0); CO2 29.1 mmol/L (21.0-32.0); CREATININE 0.8 mg/dL (0.55-1.02); Calcium 9.2 mg/dL (8.5-10.1); Chloride 104 mmol/L (98-107); Glucose 214 mg/dL (74-106); Sodium 142 mmol/L (136-145); Total Protein 7.7 g/dL (6.4-8.2)
[2021-08-04 12:21] LABS: Cancer Ag 15-3 37 U/mL (<30)
== END 2021-08-01 04:05 | disposition home or self-care (01) ==
LOC: LBO 04:04
PROVIDERS: PCP Family Medicine; Visit Provider Internal Medicine Hematology & Oncology
DX: C50.912 Malignant neoplasm of unspecified site of left female breast (principal)
CPT/HCPCS: 36415; 80053; 86304; 85025; 86300

== ENCOUNTER 2021-08-15 04:18 | Outpatient (CLI) | payer MEDICARE, SELFPAY ==
[2021-08-15 10:50] LABS: Abs Immature Grans 0.04 10^3/uL (0.0-0.06); Absolute Basophil Count 0.07 10^3/uL (0.0-0.2); Absolute Eosinophil Count 0.22 10^3/uL (0.0-0.7); Absolute Lymphocyte Count 1.14 10^3/uL (1.2-3.4); Absolute Monocyte Count 0.59 10^3/uL (0.1-0.8); Absolute Neutrophil Count 3.83 10^3/uL (1.2-6.7); Basophils % 1.2; Eosinophils % 3.7; HCT 39.8 % (36.0-46.0); HGB 13.4 g/dL (11.2-15.7); Immature Grans % 0.7; Lymphocytes % 19.4; MCH 33.5 pg (27.0-33.0); MCHC 33.7 % (32.0-36.0); MCV 99.5 fL (80-95); MPV 10.2 fL (8.0-11.0); Nucleated RBC 0 %; Platelet Count 169 10^3/uL (130-400); RDW 12.3 % (11.7-14.6); RDW-SD 45.3 fL; WBC 5.89 10^3/uL (4.4-10.8)
[2021-08-15 11:16] LABS: ALT 38 U/L (14-59); AST 33 U/L (15-37); Albumin 3.6 g/dL (3.4-5.0); Alkaline Phosphatase 84 U/L (46-116); Anion Gap 9.9 mmol/L (3-11); BUN 15 mg/dL (7-18); Bilirubin, Total 0.5 mg/dL (0.2-1.0); CO2 25.1 mmol/L (21.0-32.0); CREATININE 0.8 mg/dL (0.55-1.02); Calcium 9.4 mg/dL (8.5-10.1); Chloride 107 mmol/L (98-107); Glucose 223 mg/dL (74-106); Potassium 4.1 mmol/L (3.5-5.1); Sodium 142 mmol/L (136-145); Total Protein 7.3 g/dL (6.4-8.2)
[2021-08-18 12:35] LABS: Cancer Ag 15-3 30 U/mL (<30)
== END 2021-08-15 04:19 | disposition home or self-care (01) ==
LOC: LBO 04:18
PROVIDERS: PCP Family Medicine; Visit Provider Internal Medicine Hematology & Oncology
DX: C50.912 Malignant neoplasm of unspecified site of left female breast (principal)
CPT/HCPCS: 36415; 80053; 86304; 85025; 86300

== ENCOUNTER 2021-09-12 02:29 | Outpatient (CLI) | payer MEDICARE, SELFPAY ==
[2021-09-12 12:54] LABS: ALT 49 U/L (14-59); AST 27 U/L (15-37); Abs Immature Grans 0.03 10^3/uL (0.0-0.06); Absolute Basophil Count 0.06 10^3/uL (0.0-0.2); Absolute Lymphocyte Count 1.34 10^3/uL (1.2-3.4); Absolute Monocyte Count 0.57 10^3/uL (0.1-0.8); Absolute Neutrophil Count 4.76 10^3/uL (1.2-6.7); Albumin 3.6 g/dL (3.4-5.0); Alkaline Phosphatase 89 U/L (46-116); Anion Gap 5.9 mmol/L (3-11); BUN 13 mg/dL (7-18); Basophils % 0.9; Bilirubin, Total 0.6 mg/dL (0.2-1.0); CO2 29.1 mmol/L (21.0-32.0); CREATININE 0.7 mg/dL (0.55-1.02); Calcium 8.9 mg/dL (8.5-10.1); Chloride 104 mmol/L (98-107); Eosinophils % 2.9; Glucose 207 mg/dL (74-106); HCT 40.9 % (36.0-46.0); HGB 13.1 g/dL (11.2-15.7); Immature Grans % 0.4; Lymphocytes % 19.3; MCH 31.6 pg (27.0-33.0); MCV 98.8 fL (80-95); MPV 10.3 fL (8.0-11.0); Monocytes % 8.2; Neutrophils % 68.3; Nucleated RBC 0 %; Platelet Count 179 10^3/uL (130-400); Potassium 4.1 mmol/L (3.5-5.1); RBC 4.14 10^6/uL (3.93-5.22); RDW 12.3 % (11.7-14.6); Sodium 139 mmol/L (136-145); Total Protein 7.3 g/dL (6.4-8.2); WBC 6.96 10^3/uL (4.4-10.8)
[2021-09-13 14:48] LABS: Cancer Ag 15-3 26 U/mL (<30)
== END 2021-09-12 02:30 | disposition home or self-care (01) ==
PROVIDERS: PCP Family Medicine; Visit Provider Internal Medicine Hematology & Oncology
DX: C50.912 Malignant neoplasm of unspecified site of left female breast (principal)
CPT/HCPCS: 36415; 80053; 86304; 85025; 86300

== ENCOUNTER 2021-10-06 00:34 | Outpatient (CLI) | payer MEDICARE, SELFPAY ==
--- NOTE | 2021-10-06 | DI.CT_ITS ---
Exam(s) CT CHEST/ABD/PEL W EXAM: CT CHEST/ABD/PEL W CLINICAL HISTORY: LEFT BREAST CANCER C50.912 RESTAGING. TECHNIQUE: Imaging Protocol: Axial computed tomography images with coronal and sagittal reformatted images were created and reviewed CONTRAST MATERIAL: Intravenous: Omnipaque 350 Contrast volume:100 ml Oral: yes COMPARISON: CT CT CHEST/ABD/PEL W from 07/07/2021 FINDINGS: CHEST: Pulmonary arteries: Well opacified with IV contrast. No emboli are visible. Tracheobronchial tree: Patent where visualized. Mediastinum and Sheila: No dominant adenopathy or fluid collection. Pulmonary parenchyma: Continued interval increase in size of right lower lobe mass, now measuring 3.3 x 2.8 by 3.2 cm. Stable scarring posterior right lung base. Pleura: No effusion or pneumothorax. Lymph nodes: Within normal limits. Aorta: Thoracic portion non-dilated. Atherosclerotic changes. Heart: Normal size. Coronary artery calcifications are seen. Bones: Degenerative changes, unremarkable for age. No lytic or blastic lesions. Soft tissues: Surgical clips left axilla. Left mastectomy. ABDOMEN: Liver: Enlarged, fatty infiltration. Marked interval increase in lesion in the left lobe of liver no w measuring 4 cm compared with 2 cm on the prior exam. A 3.7 centimeter metastasis is now seen poste rior to the gallbladder fossa. There is a an additional lesion measuring 3.2 cm near the inferior haily rder of the liver. A 1.6 centimeter lesion is seen in the left lobe. Gallbladder and biliary tract: Patient is status post cholecystectomy.No radiodense calculus or dilat ion. Pancreas: Normal density, no abnormal calcifications or inflammatory process. Spleen: Normal. Kidneys: Normal size, contour and axis. No radiodense stones or obstructive uropathy. No masses seen. Bilateral cysts. Adrenal glands: No masses seen. Aorta: Abdominal portion non-dilated. Atherosclerotic changes. Lymph nodes: Within normal limits. Soft tissues: Unremarkable. PELVIS: Bladder: Symmetric distention, no gross wall thickening. Bowel: No obstruction or bowel wall thickening. Peritoneal cavity: No ascites, collection or mesenteric inflammatory response. Bones: Unremarkable for age.. Reproductive organs: Within normal limits. IMPRESSION: Interval increase in size of right lower lobe mass. Considerable increase in size of previously note d liver metastasis. Multiple new liver metastases are visible. RADIATION DOSE DELIVERED: 2,169.09mGy.cm Total DLP DATA REPOSITORY: All CT scans at this facility are submitted to the National Radiology Data Registry (NRDR) Dose Index Registry (DIR) with the [employer] (ACR). RADIATION OPTIMIZATION: All CT scans at this facility use at least one of these dose optimization te chniques: automated exposure control; mA and/or kV adjustment per patient size (includes targeted exa ms where dose is matched to clinical indication); or iterative reconstruction.
[2021-10-06] MEDS: Breeza Beverage 473 ML BTL PO ×2 (08:48→08:49)
[2021-10-06] MEDS: Omnipaque 350 MG/ML 50 ML BTL IJ (08:49)
[2021-10-06 09:13] LABS: ALT 43 U/L (14-59); AST 30 U/L (15-37); Albumin 3.6 g/dL (3.4-5.0); Alkaline Phosphatase 83 U/L (46-116); Anion Gap 9.2 mmol/L (3-11); BUN 19 mg/dL (7-18); Bilirubin, Total 0.6 mg/dL (0.2-1.0); CO2 27.8 mmol/L (21.0-32.0); CREATININE 0.7 mg/dL (0.55-1.02); Calcium 9.1 mg/dL (8.5-10.1); Chloride 104 mmol/L (98-107); Glucose 199 mg/dL (74-106); Potassium 4.1 mmol/L (3.5-5.1); Sodium 141 mmol/L (136-145); Total Protein 7.4 g/dL (6.4-8.2)
[2021-10-06] MEDS: Omnipaque 350 MG/ML 100 ML BTL IJ (10:06)
== END 2021-10-06 00:54 ==
LOC: DI 00:34
PROVIDERS: PCP Family Medicine; Visit Provider Internal Medicine Hematology & Oncology
DX: C50.912 Malignant neoplasm of unspecified site of left female breast (principal); C78.7 Secondary malignant neoplasm of liver and intrahepatic bile duct; C78.00 Secondary malignant neoplasm of unspecified lung
CPT/HCPCS: 74177; 80053; 71260; J3490; Q9967

== ENCOUNTER 2021-10-13 00:22 | Outpatient (CLI) | payer MEDICARE, SELFPAY ==
--- NOTE | 2021-10-13 08:45 | DI.MRI_ITS ---
Exam(s) MR BRAIN WO/W EXAM: MR BRAIN WO/W CLINICAL HISTORY: BREAST CA S/P RESECTION, RADIATION THERAPY FOR RT FRONTAL BRAIN METS,C79.31. TECHNIQUE: Multiplanar multisequence MRI of the brain was performed. CONTRAST MATERIAL: IV Contrast: 18 ML of Dotarem contrast administered. COMPARISON: MR MR BRAIN WO/W from 04/18/2021 FINDINGS: VENTRICLES AND EXTRA AXIAL SPACES: Normal in size and morphology for the patient's age. HEMORRHAGE: None. CEREBRAL PARENCHYMA: No focus of restricted diffusion to suggest acute infarct. Previously noted cyst ic mass with peripheral enhancement now shows significant solid enhancing component, now measuring ro ughly 13 millimeters in greatest dimension versus 6 on the previous exam. Overall size of mass uncha nged. No new masses. Stable hemosiderin with in lesion. MIDLINE SHIFT: None. BRAINSTEM/CEREBELLUM: Normal. VISUALIZED PARANASAL SINUSES/MASTOIDS: Clear. OTHER FINDINGS: None. IMPRESSION: Stable size of mass in the right high frontal parietal region with increase in amount of solid enhanc ing component. DATA REPOSITORY:
[2021-10-13] MEDS: Normal Saline Flush 10 ML SYR IVP (08:52)
[2021-10-13] MEDS: Gadoterate meglumine 20 ML VIAL 18 ML IVP (08:53)
== END 2021-10-13 00:42 ==
LOC: DI 00:22
PROVIDERS: PCP Family Medicine; Visit Provider Radiology Radiation Oncology
DX: C79.31 Secondary malignant neoplasm of brain (principal); Z85.3 Personal history of malignant neoplasm of breast
CPT/HCPCS: 70553

== ENCOUNTER 2021-10-31 16:01 | Outpatient (CLI) | payer MEDICARE, SELFPAY ==
[2021-10-31 14:05] LABS: Abs Immature Grans 0.02 10^3/uL (0.0-0.06); Absolute Basophil Count 0.03 10^3/uL (0.0-0.2); Absolute Eosinophil Count 0.13 10^3/uL (0.0-0.7); Absolute Lymphocyte Count 1.22 10^3/uL (1.2-3.4); Absolute Monocyte Count 0.51 10^3/uL (0.1-0.8); Absolute Neutrophil Count 3.54 10^3/uL (1.2-6.7); Basophils % 0.6; Eosinophils % 2.4; HCT 39.9 % (36.0-46.0); Immature Grans % 0.4; Lymphocytes % 22.4; MCH 31.5 pg (27.0-33.0); MCHC 32.6 % (32.0-36.0); MCV 97 fL (80-95); Monocytes % 9.4; Neutrophils % 64.8; Platelet Count 158 10^3/uL (130-400); RBC 4.13 10^6/uL (3.93-5.22); RDW 12.8 % (11.7-14.6); RDW-SD 45.5 fL; WBC 5.45 10^3/uL (4.4-10.8)
[2021-10-31 14:20] LABS: ALT 38 U/L (14-59); AST 43 U/L (15-37); Albumin 3.5 g/dL (3.4-5.0); Alkaline Phosphatase 92 U/L (46-116); Anion Gap 7.2 mmol/L (3-11); BUN 15 mg/dL (7-18); Bilirubin, Total 0.5 mg/dL (0.2-1.0); CO2 29.8 mmol/L (21.0-32.0); CREATININE 0.7 mg/dL (0.55-1.02); Calcium 9.3 mg/dL (8.5-10.1); Chloride 105 mmol/L (98-107); Glucose 213 mg/dL (74-106); Potassium 3.9 mmol/L (3.5-5.1); Sodium 142 mmol/L (136-145); Total Protein 7.4 g/dL (6.4-8.2)
[2021-10-31 14:32] LABS: Calculated LDL 174 mg/dL (<100); Cholesterol 284 mg/dL (<200); HDL Cholesterol 46 mg/dL (40-60); Triglyceride 323 mg/dL (<150)
[2021-11-01 14:53] LABS: Cancer Ag 15-3 25 U/mL (<30)
== END 2021-10-31 16:02 | disposition home or self-care (01) ==
LOC: LBO 16:02
PROVIDERS: PCP Family Medicine; Visit Provider Internal Medicine Hematology & Oncology
DX: C50.912 Malignant neoplasm of unspecified site of left female breast (principal); C78.7 Secondary malignant neoplasm of liver and intrahepatic bile duct; Z79.899 Other long term (current) drug therapy
CPT/HCPCS: 36415; 80053; 80061; 86304; 85025; 86300

== ENCOUNTER 2021-11-21 01:25 | Outpatient (CLI) | payer MEDICARE, SELFPAY ==
[2021-11-21 09:49] LABS: Abs Immature Grans 0.03 10^3/uL (0.0-0.06); Absolute Basophil Count 0.05 10^3/uL (0.0-0.2); Absolute Eosinophil Count 0.13 10^3/uL (0.0-0.7); Absolute Lymphocyte Count 1.36 10^3/uL (1.2-3.4); Absolute Neutrophil Count 4.07 10^3/uL (1.2-6.7); Basophils % 0.8; Eosinophils % 2.1; HCT 40.3 % (36.0-46.0); HGB 13.4 g/dL (11.2-15.7); Immature Grans % 0.5; Lymphocytes % 21.8; MCH 30.5 pg (27.0-33.0); MCHC 33.3 % (32.0-36.0); MCV 92 fL (80-95); MPV 10.2 fL (8.0-11.0); Monocytes % 9.6; Neutrophils % 65.2; Platelet Count 181 10^3/uL (130-400); RBC 4.39 10^6/uL (3.93-5.22); RDW 12.2 % (11.7-14.6); RDW-SD 41.1 fL; WBC 6.24 10^3/uL (4.4-10.8)
[2021-11-21 10:04] LABS: ALT 38 U/L (14-59); AST 33 U/L (15-37); Albumin 3.9 g/dL (3.4-5.0); Alkaline Phosphatase 99 U/L (46-116); Anion Gap 11.8 mmol/L (3-11); BUN 18 mg/dL (7-18); Bilirubin, Total 0.7 mg/dL (0.2-1.0); CO2 25.2 mmol/L (21.0-32.0); CREATININE 0.9 mg/dL (0.55-1.02); Calculated LDL 121 mg/dL (<100); Chloride 103 mmol/L (98-107); Cholesterol 242 mg/dL (<200); Glucose 313 mg/dL (74-106); HDL Cholesterol 47 mg/dL (40-60); Potassium 3.9 mmol/L (3.5-5.1); Sodium 140 mmol/L (136-145); Total Protein 7.8 g/dL (6.4-8.2); Triglyceride 374 mg/dL (<150)
[2021-11-24 09:41] LABS: Cancer Ag 15-3 35 U/mL (<30)
== END 2021-11-21 01:26 | disposition home or self-care (01) ==
LOC: LBO 01:25
PROVIDERS: PCP Family Medicine; Visit Provider Internal Medicine Hematology & Oncology
DX: C50.912 Malignant neoplasm of unspecified site of left female breast (principal); Z79.899 Other long term (current) drug therapy; C78.7 Secondary malignant neoplasm of liver and intrahepatic bile duct
CPT/HCPCS: 36415; 80053; 80061; 86304; 85025; 86300

== ENCOUNTER 2021-12-26 02:14 | Outpatient (CLI) | payer MEDICARE, SELFPAY ==
[2021-12-26 12:17] LABS: Abs Immature Grans 0.01 10^3/uL (0.0-0.06); Absolute Basophil Count 0.02 10^3/uL (0.0-0.2); Absolute Monocyte Count 0.52 10^3/uL (0.1-0.8); Absolute Neutrophil Count 1.89 10^3/uL (1.2-6.7); Basophils % 0.6; Eosinophils % 2.9; HCT 36.8 % (36.0-46.0); HGB 12.6 g/dL (11.2-15.7); Immature Grans % 0.3; Lymphocytes % 26.2; MCH 30.2 pg (27.0-33.0); MCHC 34.2 % (32.0-36.0); MCV 88 fL (80-95); MPV 10.1 fL (8.0-11.0); Monocytes % 15.1; Neutrophils % 54.9; Platelet Count 145 10^3/uL (130-400); RBC 4.17 10^6/uL (3.93-5.22); RDW 13.2 % (11.7-14.6); RDW-SD 42.5 fL; WBC 3.44 10^3/uL (4.4-10.8)
[2021-12-26 12:31] LABS: ALT 47 U/L (14-59); AST 55 U/L (15-37); Albumin 3.4 g/dL (3.4-5.0); Alkaline Phosphatase 82 U/L (46-116); Anion Gap 9.6 mmol/L (3-11); BUN 11 mg/dL (7-18); Bilirubin, Total 0.8 mg/dL (0.2-1.0); CO2 26.4 mmol/L (21.0-32.0); CREATININE 0.7 mg/dL (0.55-1.02); Calcium 8.5 mg/dL (8.5-10.1); Chloride 103 mmol/L (98-107); Glucose 220 mg/dL (74-106); Potassium 3.4 mmol/L (3.5-5.1); Sodium 139 mmol/L (136-145); Total Protein 7.2 g/dL (6.4-8.2)
[2021-12-27 13:50] LABS: Cancer Ag 15-3 38 U/mL (<30)
== END 2021-12-26 02:15 | disposition home or self-care (01) ==
LOC: LBO 02:14
PROVIDERS: PCP Family Medicine; Visit Provider Internal Medicine Hematology & Oncology
DX: C50.912 Malignant neoplasm of unspecified site of left female breast (principal); C78.02 Secondary malignant neoplasm of left lung
CPT/HCPCS: 36415; 80053; 86304; 85025; 86300

== ENCOUNTER 2022-01-13 02:30 | Outpatient (CLI) | payer MEDICARE, SELFPAY ==
[2022-01-13] MEDS: Barium Sulfate 2% W/V-Berry Smoothie 450 ML BTL PO ×2 (08:42→08:43)
--- NOTE | 2022-01-13 10:00 | DI.CT_ITS ---
Exam(s) CT CHEST/ABD/PEL W EXAM: CT CHEST/ABD/PEL W CLINICAL HISTORY: BREAST CA WI/METS TO LIVER, LT, C50.912, C78.7. TECHNIQUE: Imaging Protocol: Axial computed tomography images with coronal and sagittal reformatted images were created and reviewed CONTRAST MATERIAL: Intravenous: Omnipaque 350 Contrast volume:100 ml Oral: yes COMPARISON: CT CT CHEST/ABD/PEL W from 10/06/2021 FINDINGS: CHEST: Soft tissues: Left mastectomy. Surgical clips in left chest wall and left axilla. Tracheobronchial tree: Patent where visualized. Mediastinum and Sheila: No dominant adenopathy or fluid collection. Pulmonary parenchyma: Interval increase in size of mass at the medial right lower lobe with increased extension inferiorly and increased pleural thickening, extending along posterior diaphragm. Pleura: No effusion or pneumothorax. Lymph nodes: Within normal limits. Aorta: Thoracic portion non-dilated. Heart: Normal size. Coronary artery calcifications. Bones: Unremarkable for age. No lytic or blastic lesions. ABDOMEN: Liver: Normal density. Interval increase in size of previously noted liver metastases. The lesion in the left lobe now measures 5 cm in diameter. The lesion posterior to the gallbladder fossa or measure s 3.6 cm . The lesion previously noted at the inferior right lobe now measures 3.8cm. Other new small er lesions are now apparent throughout the right lobe. These are better seen on the arterial phase im ages. Gallbladder and biliary tract: Status post cholecystectomy. No radiodense calculus or dilation. Pancreas: Normal density, no abnormal calcifications or inflammatory process. Spleen: Normal. Kidneys: Normal size, contour and axis. No radiodense stones or obstructive uropathy. Tiny bilateral cysts. No masses seen. Adrenal glands: No masses seen. Aorta: Abdominal portion non-dilated. Atherosclerotic changes. Lymph nodes: 1.6 centimeter long axis lymph node medial to is gastric fundus. Soft tissues: Unremarkable. PELVIS: Bladder: Symmetric distention, no gross wall thickening. Bowel: No obstruction or bowel wall thickening. Peritoneal cavity: No ascites, collection or mesenteric inflammatory response. Bones: Degenerative changes. No lytic or blastic lesions identified. Reproductive organs: Within normal limits. IMPRESSION: Interval increase in size of right lower lobe mass with extension inferiorly along the floor and diap hragm. Interval increase in size and number liver metastases. RADIATION DOSE DELIVERED: 1,749.04mGy.cm Total DLP DATA REPOSITORY: All CT scans at this facility are submitted to the National Radiology Data Registry (NRDR) Dose Index Registry (DIR) with the [employer] (ACR). RADIATION OPTIMIZATION: All CT scans at this facility use at least one of these dose optimization te chniques: automated exposure control; mA and/or kV adjustment per patient size (includes targeted exa ms where dose is matched to clinical indication); or iterative reconstruction.
[2022-01-13] MEDS: Omnipaque 350 MG/ML 100 ML BTL IJ (10:19)
== END 2022-01-13 02:50 ==
LOC: DI 02:30
PROVIDERS: PCP Family Medicine; Visit Provider Internal Medicine Hematology & Oncology
DX: C50.912 Malignant neoplasm of unspecified site of left female breast (principal); C78.7 Secondary malignant neoplasm of liver and intrahepatic bile duct
CPT/HCPCS: 74177; 71260; J3490

== ENCOUNTER 2022-01-16 01:36 | Outpatient (CLI) | payer MEDICARE, SELFPAY ==
[2022-01-16 09:35] LABS: Abs Immature Grans 0.02 10^3/uL (0.0-0.06); Absolute Basophil Count 0.03 10^3/uL (0.0-0.2); Absolute Eosinophil Count 0.13 10^3/uL (0.0-0.7); Absolute Lymphocyte Count 0.63 10^3/uL (1.2-3.4); Absolute Monocyte Count 0.42 10^3/uL (0.1-0.8); Absolute Neutrophil Count 2.88 10^3/uL (1.2-6.7); Basophils % 0.7; Eosinophils % 3.2; HCT 39.7 % (36.0-46.0); HGB 13.1 g/dL (11.2-15.7); Immature Grans % 0.5; Lymphocytes % 15.3; MCH 29.9 pg (27.0-33.0); MCV 91 fL (80-95); MPV 10.3 fL (8.0-11.0); Monocytes % 10.2; Neutrophils % 70.1; Platelet Count 152 10^3/uL (130-400); RBC 4.38 10^6/uL (3.93-5.22); RDW 13.8 % (11.7-14.6); RDW-SD 45.9 fL; WBC 4.11 10^3/uL (4.4-10.8)
[2022-01-16 09:51] LABS: ALT 57 U/L (14-59); AST 75 U/L (15-37); Albumin 3.5 g/dL (3.4-5.0); Alkaline Phosphatase 81 U/L (46-116); Anion Gap 10.7 mmol/L (3-11); BUN 9 mg/dL (7-18); Bilirubin, Total 0.7 mg/dL (0.2-1.0); CO2 28.3 mmol/L (21.0-32.0); CREATININE 0.7 mg/dL (0.55-1.02); Calcium 8.8 mg/dL (8.5-10.1); Chloride 105 mmol/L (98-107); Glucose 245 mg/dL (74-106); Potassium 4.1 mmol/L (3.5-5.1); Sodium 144 mmol/L (136-145); Total Protein 7.3 g/dL (6.4-8.2)
[2022-01-19 10:00] LABS: Cancer Ag 15-3 45 U/mL (<30)
== END 2022-01-16 01:37 | disposition home or self-care (01) ==
LOC: LBO 01:36
PROVIDERS: PCP Family Medicine; Visit Provider Internal Medicine Hematology & Oncology
DX: C50.912 Malignant neoplasm of unspecified site of left female breast (principal); C78.7 Secondary malignant neoplasm of liver and intrahepatic bile duct
CPT/HCPCS: 36415; 80053; 86304; 85025; 86300

== ENCOUNTER 2022-02-13 01:37 | Outpatient (CLI) | payer MEDICARE, SELFPAY ==
[2022-02-13 11:45] LABS: Abs Immature Grans 0.05 10^3/uL (0.0-0.06); Absolute Basophil Count 0.05 10^3/uL (0.0-0.2); Absolute Eosinophil Count 0.18 10^3/uL (0.0-0.7); Absolute Lymphocyte Count 1.09 10^3/uL (1.2-3.4); Absolute Neutrophil Count 6.99 10^3/uL (1.2-6.7); Basophils % 0.5; HCT 41.4 % (36.0-46.0); HGB 13.3 g/dL (11.2-15.7); Immature Grans % 0.5; Lymphocytes % 11.9; MCH 29.4 pg (27.0-33.0); MCHC 32.1 % (32.0-36.0); MCV 92 fL (80-95); Monocytes % 8.7; Neutrophils % 76.4; Platelet Count 187 10^3/uL (130-400); RBC 4.52 10^6/uL (3.93-5.22); RDW 16.1 % (11.7-14.6); RDW-SD 53.6 fL; WBC 9.16 10^3/uL (4.4-10.8)
[2022-02-13 12:04] LABS: ALT 50 U/L (14-59); AST 76 U/L (15-37); Albumin 3.6 g/dL (3.4-5.0); Alkaline Phosphatase 105 U/L (46-116); Anion Gap 8.4 mmol/L (3-11); BUN 14 mg/dL (7-18); Bilirubin, Total 0.7 mg/dL (0.2-1.0); CO2 27.6 mmol/L (21.0-32.0); CREATININE 0.8 mg/dL (0.55-1.02); Calcium 9.5 mg/dL (8.5-10.1); Chloride 102 mmol/L (98-107); Estimated GFR 78.24 (mL/min/1.73m2); Glucose 166 mg/dL (74-106); Sodium 138 mmol/L (136-145); Total Protein 7.7 g/dL (6.4-8.2)
[2022-02-14 15:12] LABS: Cancer Ag 15-3 49 U/mL (<30)
[2022-02-17 13:34] LABS: DPYD Phenotype Normal metabolizer
== END 2022-02-13 01:38 | disposition home or self-care (01) ==
LOC: LBO 01:37
PROVIDERS: PCP Family Medicine; Visit Provider Internal Medicine Hematology & Oncology
DX: C50.912 Malignant neoplasm of unspecified site of left female breast (principal)
CPT/HCPCS: 36415; 80053; 81232; 86304; 85025; 86300

== ENCOUNTER 2022-03-06 02:05 | Outpatient (CLI) | payer MEDICARE, MEDICAID, SELFPAY ==
[2022-03-06 14:14] LABS: Abs Immature Grans 0.06 10^3/uL (0.0-0.06); Absolute Basophil Count 0.05 10^3/uL (0.0-0.2); Absolute Eosinophil Count 0.25 10^3/uL (0.0-0.7); Absolute Lymphocyte Count 2.06 10^3/uL (1.2-3.4); Absolute Neutrophil Count 8.03 10^3/uL (1.2-6.7); Basophils % 0.4; Eosinophils % 2.2; HCT 40.3 % (36.0-46.0); HGB 13.4 g/dL (11.2-15.7); Immature Grans % 0.5; MCH 31.3 pg (27.0-33.0); MCHC 33.3 % (32.0-36.0); MCV 94 fL (80-95); MPV 9.7 fL (8.0-11.0); Monocytes % 8.7; Neutrophils % 70.2; Platelet Count 217 10^3/uL (130-400); RBC 4.28 10^6/uL (3.93-5.22); RDW 18.2 % (11.7-14.6); RDW-SD 52.5 fL; WBC 11.44 10^3/uL (4.4-10.8)
[2022-03-06 14:30] LABS: ALT 44 U/L (14-59); AST 57 U/L (15-37); Albumin 3.8 g/dL (3.4-5.0); Alkaline Phosphatase 114 U/L (46-116); Anion Gap 4.8 mmol/L (3-11); BUN 13 mg/dL (7-18); Bilirubin, Total 0.5 mg/dL (0.2-1.0); CO2 31.2 mmol/L (21.0-32.0); CREATININE 0.8 mg/dL (0.55-1.02); Calcium 9.4 mg/dL (8.5-10.1); Chloride 102 mmol/L (98-107); Estimated GFR 78.24 (mL/min/1.73m2); Glucose 119 mg/dL (74-106); Sodium 138 mmol/L (136-145)
[2022-03-09 10:24] LABS: Cancer Ag 15-3 64 U/mL (<30)
== END 2022-03-06 02:06 | disposition home or self-care (01) ==
LOC: LBO 02:05
PROVIDERS: PCP Family Medicine; Visit Provider Internal Medicine Hematology & Oncology
DX: C50.912 Malignant neoplasm of unspecified site of left female breast (principal)
CPT/HCPCS: 36415; 80053; 86304; 85025; 86300

== ENCOUNTER 2022-03-13 01:34 | Outpatient (CLI) | payer MEDICARE, SELFPAY ==
[2022-03-13 12:19] LABS: Abs Immature Grans 0.03 10^3/uL (0.0-0.06); Absolute Basophil Count 0.05 10^3/uL (0.0-0.2); Absolute Eosinophil Count 0.14 10^3/uL (0.0-0.7); Absolute Monocyte Count 0.64 10^3/uL (0.1-0.8); Absolute Neutrophil Count 5.24 10^3/uL (1.2-6.7); Basophils % 0.7; Eosinophils % 1.9; HCT 39.1 % (36.0-46.0); HGB 12.8 g/dL (11.2-15.7); Immature Grans % 0.4; Lymphocytes % 18.7; MCH 31.2 pg (27.0-33.0); MCHC 32.7 % (32.0-36.0); MCV 95 fL (80-95); MPV 9.8 fL (8.0-11.0); Monocytes % 8.5; Neutrophils % 69.8; Platelet Count 165 10^3/uL (130-400); RDW 18.5 % (11.7-14.6); RDW-SD 62.7 fL
[2022-03-13 12:33] LABS: ALT 35 U/L (14-59); AST 48 U/L (15-37); Albumin 3.5 g/dL (3.4-5.0); Alkaline Phosphatase 100 U/L (46-116); Anion Gap -2.5 mmol/L (3-11); BUN 15 mg/dL (7-18); Bilirubin, Total 0.4 mg/dL (0.2-1.0); CO2 31.5 mmol/L (21.0-32.0); CREATININE 0.7 mg/dL (0.55-1.02); Calcium 9.2 mg/dL (8.5-10.1); Chloride 103 mmol/L (98-107); Estimated GFR 91.83 (mL/min/1.73m2); Glucose 149 mg/dL (74-106); Potassium 3.8 mmol/L (3.5-5.1); Sodium 132 mmol/L (136-145); Total Protein 7.3 g/dL (6.4-8.2)
[2022-03-14 12:43] LABS: Cancer Ag 15-3 56 U/mL (<30)
== END 2022-03-13 01:35 | disposition home or self-care (01) ==
LOC: LBO 01:34
PROVIDERS: PCP Family Medicine; Visit Provider Internal Medicine Hematology & Oncology
DX: C50.912 Malignant neoplasm of unspecified site of left female breast (principal)
CPT/HCPCS: 36415; 80053; 86304; 85025; 86300

== ENCOUNTER 2022-04-03 02:15 | Outpatient (CLI) | payer MEDICARE, SELFPAY ==
[2022-04-03 10:24] LABS: Abs Immature Grans 0.03 10^3/uL (0.0-0.06); Absolute Basophil Count 0.06 10^3/uL (0.0-0.2); Absolute Eosinophil Count 0.19 10^3/uL (0.0-0.7); Absolute Lymphocyte Count 1.61 10^3/uL (1.2-3.4); Absolute Monocyte Count 0.73 10^3/uL (0.1-0.8); Basophils % 0.8; Eosinophils % 2.4; HGB 13.6 g/dL (11.2-15.7); Immature Grans % 0.4; Lymphocytes % 20.3; MCH 32.5 pg (27.0-33.0); MCHC 33.2 % (32.0-36.0); MCV 98 fL (80-95); Monocytes % 9.2; Neutrophils % 66.9; Platelet Count 186 10^3/uL (130-400); RBC 4.19 10^6/uL (3.93-5.22); RDW 20.2 % (11.7-14.6); RDW-SD 71.6 fL; WBC 7.92 10^3/uL (4.4-10.8)
[2022-04-03 10:42] LABS: ALT 37 U/L (14-59); AST 42 U/L (15-37); Albumin 3.8 g/dL (3.4-5.0); Alkaline Phosphatase 112 U/L (46-116); Anion Gap 6.3 mmol/L (3-11); BUN 15 mg/dL (7-18); Bilirubin, Total 0.6 mg/dL (0.2-1.0); CO2 28.7 mmol/L (21.0-32.0); CREATININE 0.9 mg/dL (0.55-1.02); Calcium 9.4 mg/dL (8.5-10.1); Chloride 104 mmol/L (98-107); Estimated GFR 67.92 (mL/min/1.73m2); Glucose 164 mg/dL (74-106); Potassium 3.9 mmol/L (3.5-5.1); Sodium 139 mmol/L (136-145); Total Protein 7.8 g/dL (6.4-8.2)
[2022-04-03 10:45] LABS: Anisocytosis 2+; Diff Comment Diff Reviewed; Polychromasia Present
[2022-04-06 11:20] LABS: Cancer Ag 15-3 52 U/mL (<30)
== END 2022-04-03 02:16 | disposition home or self-care (01) ==
LOC: LBO 02:15
PROVIDERS: PCP Family Medicine; Visit Provider Internal Medicine Hematology & Oncology
DX: C50.912 Malignant neoplasm of unspecified site of left female breast (principal); C78.7 Secondary malignant neoplasm of liver and intrahepatic bile duct
CPT/HCPCS: 36415; 80053; 86304; 85025; 86300

== ENCOUNTER 2022-04-24 01:14 | Outpatient (CLI) | payer MEDICARE, SELFPAY ==
[2022-04-24 11:50] LABS: Abs Immature Grans 0.02 10^3/uL (0.0-0.06); Absolute Basophil Count 0.04 10^3/uL (0.0-0.2); Absolute Eosinophil Count 0.16 10^3/uL (0.0-0.7); Absolute Lymphocyte Count 1.36 10^3/uL (1.2-3.4); Absolute Monocyte Count 0.88 10^3/uL (0.1-0.8); Absolute Neutrophil Count 5.31 10^3/uL (1.2-6.7); Basophils % 0.5; Eosinophils % 2.1; HCT 39.9 % (36.0-46.0); HGB 13.3 g/dL (11.2-15.7); Immature Grans % 0.3; Lymphocytes % 17.5; MCHC 33.3 % (32.0-36.0); MCV 102 fL (80-95); MPV 9.8 fL (8.0-11.0); Monocytes % 11.3; Neutrophils % 68.3; Platelet Count 178 10^3/uL (130-400); RBC 3.91 10^6/uL (3.93-5.22); RDW 19.7 % (11.7-14.6); RDW-SD 73.6 fL; WBC 7.77 10^3/uL (4.4-10.8)
[2022-04-24 12:11] LABS: ALT 39 U/L (14-59); AST 45 U/L (15-37); Albumin 3.9 g/dL (3.4-5.0); Alkaline Phosphatase 110 U/L (46-116); Anion Gap 8.3 mmol/L (3-11); BUN 18 mg/dL (7-18); Bilirubin, Total 0.7 mg/dL (0.2-1.0); CO2 29.7 mmol/L (21.0-32.0); CREATININE 0.8 mg/dL (0.55-1.02); Calcium 9.4 mg/dL (8.5-10.1); Chloride 102 mmol/L (98-107); Estimated GFR 78.24 (mL/min/1.73m2); Glucose 152 mg/dL (74-106); Potassium 3.7 mmol/L (3.5-5.1); Sodium 140 mmol/L (136-145); Total Protein 7.8 g/dL (6.4-8.2)
[2022-04-28 10:19] LABS: Cancer Ag 15-3 48 U/mL (<30)
== END 2022-04-24 01:15 | disposition home or self-care (01) ==
LOC: LBO 01:14
PROVIDERS: PCP Family Medicine; Visit Provider Internal Medicine Hematology & Oncology
DX: C50.912 Malignant neoplasm of unspecified site of left female breast (principal); C78.7 Secondary malignant neoplasm of liver and intrahepatic bile duct
CPT/HCPCS: 36415; 80053; 86304; 85025; 86300

== ENCOUNTER 2022-05-04 01:43 | Outpatient (CLI) | payer MEDICARE, SELFPAY ==
--- NOTE | 2022-05-04 | DI.MRI_ITS ---
Exam(s) MR BRAIN WO/W EXAM: MR BRAIN WO/W CLINICAL HISTORY: MALIGNANT NEOPLASM BRAIN C79.31 SURVEILLANCE. TECHNIQUE: Multiplanar multisequence MRI of the brain was performed. CONTRAST MATERIAL: IV Contrast: 17 ML of Dotarem contrast administered. COMPARISON: MR MR BRAIN WO/W from 10/13/2021 FINDINGS: VENTRICLES AND EXTRA AXIAL SPACES: Normal in size and morphology for the patient's age. HEMORRHAGE: None. CEREBRAL PARENCHYMA: No focus of restricted diffusion to suggest acute infarct. Interval decrease in size of previously noted mass in the high posterior right frontal lobe as well as decrease in surroun ding edema. New enhancing focus anterior right frontal lobe 8 by 5 millimeters MIDLINE SHIFT: None. BRAINSTEM/CEREBELLUM: 7 x 10 millimeter enhancing nodule inferomedial right cerebellum adjacent to br ainstem. Question tiny focus of abnormal enhancement in the left cerebellar hemisphere. New enhanci ng foci high left frontal cortex. New 6 millimeter enhancing focus left temporoparietal region CALVARIUM: New 10 x 18 millimeter millimeter lesion left frontal skull. VISUALIZED PARANASAL SINUSES/MASTOIDS: Clear. IMPRESSION: Interval decrease in size previously noted mass in the high posterior right frontal region and decrea se in surrounding edema. New multiple metastatic foci bilaterally in the brain as well as left frontal skull region. DATA REPOSITORY:
[2022-05-04] MEDS: Normal Saline Flush 10 ML SYR IVP (14:04)
[2022-05-04] MEDS: Gadoterate meglumine 20 ML VIAL 17 ML IVP (14:05)
== END 2022-05-04 02:03 ==
LOC: DI 01:43
PROVIDERS: PCP Family Medicine; Visit Provider Radiology Radiation Oncology
DX: C79.31 Secondary malignant neoplasm of brain (principal); C79.51 Secondary malignant neoplasm of bone
CPT/HCPCS: 70553

== ENCOUNTER 2022-05-08 00:43 | Outpatient (CLI) | payer MEDICARE, SELFPAY ==
--- NOTE | 2022-05-08 | DI.CT_ITS ---
Exam(s) CT CHEST/ABD/PEL W EXAM: CT CHEST/ABD/PEL W CLINICAL HISTORY: BREAST CANCER METS TO LIVER C50.912 C78.7. TECHNIQUE: Imaging Protocol: Axial computed tomography images with coronal and sagittal reformatted images were created and reviewed CONTRAST MATERIAL: Intravenous: Omnipaque 350 Contrast volume:100 ml Oral: yes COMPARISON: CT CT CHEST/ABD/PEL W from 01/13/2022 FINDINGS: CHEST: Surgical clips are noted in the left axilla. Left mastectomy. Tracheobronchial tree: Patent where visualized. Mediastinum and Sheila: No dominant adenopathy or fluid collection. No evidence of pulmonary emboli. Pulmonary parenchyma: No significant change in size of spiculated mass in the medial right lower lob e along the diaphragm and adjacent atelectasis interval increase in size of several small pulmonary n odules, the largest being in the lateral right upper lobe measuring 6 millimeters. Pleura: No effusion or pneumothorax. Lymph nodes: Within normal limits. Aorta: Thoracic portion non-dilated. Atherosclerotic changes. Heart: Mildly enlarged. Coronary artery calcifications. Bones: Sclerotic lesions are now seen in T2 through T7 with the largest in T6. Other smaller lesions are seen in T9 and T12. Degenerative changes. . Old left rib fractures. No blastic lesions. ABDOMEN: Liver: Enlarged. Innumerable metastatic lesions, dramatically increasing in number from the prior exa m. Gallbladder and biliary tract: Status post cholecystectomy. No radiodense calculus or dilation. Pancreas: Normal density, no abnormal calcifications or inflammatory process. Spleen: Normal. Kidneys: Normal size, contour and axis. No radiodense stones or obstructive uropathy. No masses seen. Adrenal glands: No masses seen. Aorta: Abdominal portion non-dilated. Severe atherosclerotic changes. Lymph nodes: Within normal limits. Soft tissues: Unremarkable. PELVIS: Bladder: Symmetric distention, no gross wall thickening. Bowel: No obstruction or bowel wall thickening. Peritoneal cavity: No ascites, collection or mesenteric inflammatory response. Bones: New rounded sclerotic lesions are noted in the bilateral carole and sacrum as well as left pubic symphysis. Reproductive organs: Status post hysterectomy. IMPRESSION: Chest: Stable size of right lower lobe mass. New or increased in size of a few tiny nodules. New scle rotic bony metastases in the thoracic spine. Abdomen pelvis increased size and number of liver metastasis. New scattered foci of sclerotic metasta ses in the pelvis. RADIATION DOSE DELIVERED: 1,921.76mGy.cm Total DLP DATA REPOSITORY: All CT scans at this facility are submitted to the National Radiology Data Registry (NRDR) Dose Index Registry (DIR) with the [employer] (ACR). RADIATION OPTIMIZATION: All CT scans at this facility use at least one of these dose optimization te chniques: automated exposure control; mA and/or kV adjustment per patient size (includes targeted exa ms where dose is matched to clinical indication); or iterative reconstruction.
[2022-05-08] MEDS: Barium Sulfate 2% W/V-Berry Smoothie 450 ML BTL 900 ML PO (12:31)
[2022-05-08] MEDS: Omnipaque 350 MG/ML 100 ML BTL IJ (14:38)
== END 2022-05-08 01:03 ==
LOC: DI 00:44
PROVIDERS: PCP Family Medicine; Visit Provider Nurse Practitioner Family
DX: C50.912 Malignant neoplasm of unspecified site of left female breast (principal); C78.7 Secondary malignant neoplasm of liver and intrahepatic bile duct
CPT/HCPCS: 74177; 71260; J3490

== ENCOUNTER 2022-05-15 11:58 | Outpatient (CLI) | payer MEDICARE, SELFPAY ==
[2022-05-15 12:59] LABS: Abs Immature Grans 0.02 10^3/uL (0.0-0.06); Absolute Basophil Count 0.03 10^3/uL (0.0-0.2); Absolute Eosinophil Count 0.07 10^3/uL (0.0-0.7); Absolute Lymphocyte Count 1.37 10^3/uL (1.2-3.4); Absolute Monocyte Count 0.67 10^3/uL (0.1-0.8); Absolute Neutrophil Count 5.31 10^3/uL (1.2-6.7); Basophils % 0.4; Eosinophils % 0.9; HGB 13.1 g/dL (11.2-15.7); Immature Grans % 0.3; Lymphocytes % 18.3; MCH 35.4 pg (27.0-33.0); MCHC 33.6 % (32.0-36.0); MCV 105 fL (80-95); MPV 9.7 fL (8.0-11.0); Neutrophils % 71.1; Platelet Count 172 10^3/uL (130-400); RDW 18.8 % (11.7-14.6); RDW-SD 73.3 fL; WBC 7.47 10^3/uL (4.4-10.8)
[2022-05-15 13:08] LABS: ALT 55 U/L (14-59); AST 79 U/L (15-37); Albumin 3.8 g/dL (3.4-5.0); Alkaline Phosphatase 101 U/L (46-116); Anion Gap 6.1 mmol/L (3-11); BUN 13 mg/dL (7-18); Bilirubin, Total 0.8 mg/dL (0.2-1.0); CO2 30.9 mmol/L (21.0-32.0); CREATININE 0.8 mg/dL (0.55-1.02); Calcium 9.3 mg/dL (8.5-10.1); Chloride 103 mmol/L (98-107); Estimated GFR 78.24 (mL/min/1.73m2); Glucose 158 mg/dL (74-106); Potassium 4.1 mmol/L (3.5-5.1); Sodium 140 mmol/L (136-145); Total Protein 7.5 g/dL (6.4-8.2)
[2022-05-18 10:51] LABS: Cancer Ag 15-3 47 U/mL (<30)
== END 2022-05-15 11:59 | disposition home or self-care (01) ==
LOC: LBO 11:59
PROVIDERS: PCP Family Medicine; Visit Provider Internal Medicine Hematology & Oncology
DX: C50.912 Malignant neoplasm of unspecified site of left female breast (principal); C78.7 Secondary malignant neoplasm of liver and intrahepatic bile duct
CPT/HCPCS: 36415; 80053; 86304; 85025; 86300

== ENCOUNTER 2022-06-04 01:15 | Outpatient (CLI) | payer MEDICARE, SELFPAY ==
--- NOTE | 2022-06-04 | DI.US_ITS ---
APPROVED REPORT EXAM: Comprehensive 2D, Doppler, and color-flow Echocardiogram Patient Location: Out-Patient Leather Coater: Fauzia Mims RDCS (AE) Indications: Pre chemo, Evaluation of LVEF, High risk medication use, recent covid Other Information Study Quality: Fair. Technically limited study due to body habitus. Conclusion Technically difficult study Left ventricle appears grossly normal in size, wall thickness, and systolic function. Estimated ejec tion fraction is 55%. Segmental wall motion could not be accurately assessed Right ventricle and right atrium were not well visualized Left atrium was normal in size No significant structural or hemodynamically significant valvular disease was identified within the l imits of the study Wall motion Left Ventricle The left ventricle is normal size. The left ventricular systolic function is normal. The left ventric ular ejection fraction is within the normal range. There is normal left ventricular wall thickness. U nable to exclude segmental wall motion abnormalities There is no ventricular septal defect visualized . LVEF is 55%. Right Ventricle Right ventricle is not well visualized. Right ventricular systolic function could not be assessed. Atria The left atrium size is normal. Right atrium is not well visualized. The interatrial septum is intact with no evidence for an atrial septal defect. Aortic Valve The aortic valve is mildly sclerotic Number of aortic valve leaflets could not be assessed. There is no aortic valvular stenosis. No aortic regurgitation is present. Mitral Valve Mild mitral annular calcification. No evidence of mitral valve stenosis. Trace mitral regurgitation. Tricuspid Valve The tricuspid valve is normal in structure. There is no tricuspid valve stenosis. Trace tricuspid reg urgitation. Unable to assess PA pressure. Pulmonic Valve Pulmonic valve is not well visualized. There is no pulmonic valvular stenosis. There is no pulmonic v alvular regurgitation. Great Vessels The aortic root is normal in size. Ascending aorta is not well visualized. Aortic arch is not well vi sualized. IVC is normal in size and collapses >50% with inspiration. Pericardium There is no pericardial effusion. 2D Dimensions IVSD d PLAX 0.84 cm F: 0.6-1.0 LV Vol A2C d MOD 60.1 mL LVPW d PLAX 0.88 cm F: 0.6 - 1.0 LV Vol A4C d MOD 73.0 mL LVID d PLAX 4.25 cm F: 3.8 - 5.2 LA vol/ BSA A2C s A-L 20.9 mL/m2 LVDs 3.05 cm F: 2.2 - 3.5 LA vol/ BSA A4C s A-L 22.8 mL/m2 Ao Root d 2.79 cm F: 2.7 - 3.3 LA Vol/ BSA Biplane s A-L 22.4 mL/m2 LV EF Teichholz 53.3 % LA Area A4C s MOD 15.10 cm2 LVEF (Ellis's) 50.69 % F: 54 - 74 LA Area A2C s MOD 14.84 cm2 LV Volume 51.67 mL F: 46 - 106 LV EF A4C MOD 50.7 % LV Volume Index 28.23 mL/m2 F: 29 - 61 LV EF A2C MOD 50.0 % LV Vol Biplane MOD 66.8 mL LV EF Biplane MOD 50.7 % FS 27.20 % SV 33.86 mL SV Index 18.52 mL/m2 M-Mode TAPSE 1.78 cm (M/F) >1.7 LV Diastology MV E' medial 0.097 (>0.07 m/s) E/A Ratio 0.6 LV E/e MED 5.70 (<14) MV E Vmax 0.55 (0.4-1.3 m/s) MV E' lateral 0.098 (>0.1 m/s) MV A Vmax 0.85 (0.4-1.3 m/s) LV E/e LAT 5.60 (<14) MV E/A Ratio 0.64 MV E/E' medial 5.72 MV E/E' lateral 5.64 Aortic Valve LVOT Area 3.06 cm2 AoV Area Vmax 2.35 cm2 LVOT Vmax 0.99 m/s AoV Area/ BSA (Vmax) 1.29 cm2/m2 LVOT Mean Rudy. 0.59 m/s KALIE Mean Rudy. 2.18 cm2 LVOT Peak Grad 3.9 mmHg KALIE Mean Rudy. Index 1.19 cm2/m2 LVOT Mean Grad 1.7 mmHg LVOT VTI 0.176 m LVOT Diam s 1.95 cm AoV Vmax 1.29 m/s Velocity Ratio 0.77 AoV Mean Rudy. 0.82 m/s AoV Peak Grad 6.6 mmHg LVOT SV 53.70 mL AoV Mean Grad 3.3 mmHg AoV VTI 0.185 m AoV Area VTI 2.90 cm2 AoV Area/ BSA (VTI) 1.59 cm/m2 Mitral Valve MV DT 300 (160-240 msec) MV PHT 87 msec MV Area PHT 2.53 cm2 MV VTI 0.224 m MV Area VTI 2.40 (4.0-6.0 cm2) Pulmonary Valve PV Vmax 0.96 (0.5-1.5 m/s) RVOT Peak Gr. 2.21 mmHg PV Peak Grad 3.7 mmHg RVOT Mean Gr. 1.05 mmHg PV Mean Grad 2.1 mmHg RVOT VTI 0.145 m PV VTI 0.181 m RVOT Vmax 0.74 m/s
== END 2022-06-04 01:35 ==
LOC: DI 01:15
PROVIDERS: PCP Family Medicine; Visit Provider Internal Medicine Hematology & Oncology
DX: Z79.899 Other long term (current) drug therapy (principal)
CPT/HCPCS: 93306

== ENCOUNTER 2022-06-05 03:07 | Outpatient (CLI) | payer MEDICARE, SELFPAY ==
[2022-06-05 08:20] LABS: Abs Immature Grans 0.03 10^3/uL (0.0-0.06); Absolute Basophil Count 0.06 10^3/uL (0.0-0.2); Absolute Lymphocyte Count 1.06 10^3/uL (1.2-3.4); Absolute Monocyte Count 0.71 10^3/uL (0.1-0.8); Absolute Neutrophil Count 5.41 10^3/uL (1.2-6.7); Basophils % 0.8; Eosinophils % 1.4; HCT 38.7 % (36.0-46.0); HGB 12.8 g/dL (11.2-15.7); Immature Grans % 0.4; Lymphocytes % 14.4; MCH 34.1 pg (27.0-33.0); MCHC 33.1 % (32.0-36.0); MCV 103 fL (80-95); MPV 9.8 fL (8.0-11.0); Monocytes % 9.6; Neutrophils % 73.4; Platelet Count 145 10^3/uL (130-400); RBC 3.75 10^6/uL (3.93-5.22); RDW 14.6 % (11.7-14.6); RDW-SD 55.1 fL; WBC 7.37 10^3/uL (4.4-10.8)
[2022-06-05 09:02] LABS: ALT 99 U/L (14-59); AST 174 U/L (15-37); Albumin 3.5 g/dL (3.4-5.0); Alkaline Phosphatase 147 U/L (46-116); BUN 17 mg/dL (7-18); CREATININE 0.9 mg/dL (0.55-1.02); Chloride 102 mmol/L (98-107); Estimated GFR 67.92 (mL/min/1.73m2); Glucose 150 mg/dL (74-106); Potassium 4.2 mmol/L (3.5-5.1); Sodium 137 mmol/L (136-145); Total Protein 7.6 g/dL (6.4-8.2)
[2022-06-10 23:21] LABS: Cancer Ag 15-3 57 U/mL (<30)
== END 2022-06-05 03:08 | disposition home or self-care (01) ==
PROVIDERS: PCP Family Medicine; Visit Provider Internal Medicine Hematology & Oncology
DX: C50.912 Malignant neoplasm of unspecified site of left female breast (principal); C78.7 Secondary malignant neoplasm of liver and intrahepatic bile duct
CPT/HCPCS: 36415; 80053; 86304; 85025; 86300

== ENCOUNTER 2022-06-26 09:05 | Outpatient (CLI) | payer MEDICARE, SELFPAY ==
[2022-06-26 08:39] LABS: Abs Immature Grans 0.03 10^3/uL (0.0-0.06); Absolute Basophil Count 0.07 10^3/uL (0.0-0.2); Absolute Eosinophil Count 0.16 10^3/uL (0.0-0.7); Absolute Lymphocyte Count 1.41 10^3/uL (1.2-3.4); Absolute Neutrophil Count 3.16 10^3/uL (1.2-6.7); Basophils % 1.2; Eosinophils % 2.8; HCT 39.6 % (36.0-46.0); HGB 13.2 g/dL (11.2-15.7); Immature Grans % 0.5; MCH 34.6 pg (27.0-33.0); MCHC 33.3 % (32.0-36.0); MCV 104 fL (80-95); MPV 10.1 fL (8.0-11.0); Monocytes % 14.2; Neutrophils % 56.3; Platelet Count 150 10^3/uL (130-400); RBC 3.81 10^6/uL (3.93-5.22); RDW 15.8 % (11.7-14.6); RDW-SD 59.9 fL; WBC 5.63 10^3/uL (4.4-10.8)
[2022-06-26 08:55] LABS: ALT 48 U/L (14-59); AST 79 U/L (15-37); Albumin 3.4 g/dL (3.4-5.0); Alkaline Phosphatase 130 U/L (46-116); Anion Gap 7.9 mmol/L (3-11); BUN 11 mg/dL (7-18); Bilirubin, Total 0.7 mg/dL (0.2-1.0); CO2 27.1 mmol/L (21.0-32.0); CREATININE 0.8 mg/dL (0.55-1.02); Calcium 9.5 mg/dL (8.5-10.1); Chloride 107 mmol/L (98-107); Estimated GFR 78.24 (mL/min/1.73m2); Glucose 190 mg/dL (74-106); Potassium 4.2 mmol/L (3.5-5.1); Sodium 142 mmol/L (136-145); Total Protein 7.6 g/dL (6.4-8.2)
[2022-06-29 13:23] LABS: Cancer Ag 15-3 65 U/mL (<30)
== END 2022-06-26 09:06 | disposition home or self-care (01) ==
LOC: LBO 09:06
PROVIDERS: PCP Family Medicine; Visit Provider Internal Medicine Hematology & Oncology
DX: C50.912 Malignant neoplasm of unspecified site of left female breast (principal); C78.7 Secondary malignant neoplasm of liver and intrahepatic bile duct; C79.31 Secondary malignant neoplasm of brain
CPT/HCPCS: 36415; 80053; 86304; 85025; 86300

== ENCOUNTER 2022-07-17 01:57 | Outpatient (CLI) | payer MEDICARE, SELFPAY ==
[2022-07-17 13:00] LABS: Abs Immature Grans 0.01 10^3/uL (0.0-0.06); Absolute Basophil Count 0.04 10^3/uL (0.0-0.2); Absolute Eosinophil Count 0.09 10^3/uL (0.0-0.7); Absolute Monocyte Count 0.79 10^3/uL (0.1-0.8); Basophils % 0.8; Eosinophils % 1.9; HCT 37.2 % (36.0-46.0); HGB 11.9 g/dL (11.2-15.7); Immature Grans % 0.2; Lymphocytes % 20.7; MCH 33.4 pg (27.0-33.0); MCV 105 fL (80-95); Monocytes % 16.4; Platelet Count 157 10^3/uL (130-400); RBC 3.56 10^6/uL (3.93-5.22); RDW 15.1 % (11.7-14.6); RDW-SD 58.8 fL; WBC 4.83 10^3/uL (4.4-10.8)
[2022-07-17 13:17] LABS: ALT 28 U/L (14-59); AST 55 U/L (15-37); Albumin 3.4 g/dL (3.4-5.0); Alkaline Phosphatase 108 U/L (46-116); Anion Gap 8.6 mmol/L (3-11); BUN 13 mg/dL (7-18); Bilirubin, Total 0.8 mg/dL (0.2-1.0); CO2 26.4 mmol/L (21.0-32.0); CREATININE 0.8 mg/dL (0.55-1.02); Calcium 9.3 mg/dL (8.5-10.1); Chloride 107 mmol/L (98-107); Estimated GFR 78.24 (mL/min/1.73m2); Glucose 138 mg/dL (74-106); Potassium 3.5 mmol/L (3.5-5.1); Sodium 142 mmol/L (136-145); Total Protein 7.4 g/dL (6.4-8.2)
[2022-07-17 20:05] LABS: CEA 3.7 ng/mL (See Note)
== END 2022-07-17 01:58 | disposition home or self-care (01) ==
LOC: LBO 01:57
PROVIDERS: PCP Family Medicine; Visit Provider Internal Medicine Hematology & Oncology
DX: C50.912 Malignant neoplasm of unspecified site of left female breast (principal); C79.31 Secondary malignant neoplasm of brain; C78.7 Secondary malignant neoplasm of liver and intrahepatic bile duct
CPT/HCPCS: 36415; 80053; 82378; 85025

== ENCOUNTER 2022-08-04 02:38 | Outpatient (CLI) | payer MEDICARE, SELFPAY ==
[2022-08-04] MEDS: Albuterol HFA 18 GM 200 PUFF INH IH (14:43)
[2022-08-04] MEDS: Inhaler, Assist Device 1 EACH MC (14:44)
--- NOTE | 2022-08-04 15:41 | W.PFT ---
Date of service: 08/04/22 Time of Service: 13:06 Pulmonary Function Test Result Requesting Provider Dalton Joe Indications: High risk medication monitoring Interpretation Spirometry: There is no airflow limitation. There is no significant bronchodilator response Lung Volumes: Normal lung volumes Diffusion Capacity: Normal diffusion Airway Pressure: Normal airways resistance Impression Normal pulmonary function testing Note: No prior PFT's for comparison. Clinical Correlation therefore is recommended.
== END 2022-08-04 02:39 | disposition home or self-care (01) ==
LOC: RT 02:38
PROVIDERS: PCP Family Medicine; Visit Provider Internal Medicine Hematology & Oncology
DX: Z79.899 Other long term (current) drug therapy (principal)
CPT/HCPCS: 94060; 94726; 94729

== ENCOUNTER 2022-08-07 01:33 | Outpatient (CLI) | payer MEDICARE, SELFPAY ==
[2022-08-07 13:24] LABS: Abs Immature Grans 0.01 10^3/uL (0.0-0.06); Absolute Basophil Count 0.03 10^3/uL (0.0-0.2); Absolute Eosinophil Count 0.11 10^3/uL (0.0-0.7); Absolute Lymphocyte Count 1.04 10^3/uL (1.2-3.4); Absolute Monocyte Count 0.73 10^3/uL (0.1-0.8); Absolute Neutrophil Count 2.99 10^3/uL (1.2-6.7); Basophils % 0.6; Eosinophils % 2.2; HCT 37.4 % (36.0-46.0); HGB 12.2 g/dL (11.2-15.7); Immature Grans % 0.2; Lymphocytes % 21.2; MCH 33.2 pg (27.0-33.0); MCHC 32.6 % (32.0-36.0); MCV 102 fL (80-95); MPV 10.1 fL (8.0-11.0); Monocytes % 14.9; Neutrophils % 60.9; Platelet Count 139 10^3/uL (130-400); RBC 3.67 10^6/uL (3.93-5.22); RDW-SD 56.1 fL; WBC 4.91 10^3/uL (4.4-10.8)
[2022-08-07 13:43] LABS: ALT 32 U/L (14-59); AST 60 U/L (15-37); Albumin 3.4 g/dL (3.4-5.0); Alkaline Phosphatase 94 U/L (46-116); Anion Gap 8.2 mmol/L (3-11); BUN 10 mg/dL (7-18); Bilirubin, Total 0.9 mg/dL (0.2-1.0); CO2 28.8 mmol/L (21.0-32.0); CREATININE 0.7 mg/dL (0.55-1.02); Calcium 9.3 mg/dL (8.5-10.1); Chloride 106 mmol/L (98-107); Estimated GFR 91.83 (mL/min/1.73m2); Glucose 115 mg/dL (74-106); Potassium 3.5 mmol/L (3.5-5.1); Sodium 143 mmol/L (136-145); Total Protein 7.2 g/dL (6.4-8.2)
[2022-08-10 15:10] LABS: Cancer Ag 15-3 42 U/mL (<30)
== END 2022-08-07 01:34 | disposition home or self-care (01) ==
LOC: LBO 01:34
PROVIDERS: Nurse Practitioner Family; PCP Family Medicine; Visit Provider Internal Medicine Hematology & Oncology
DX: C50.912 Malignant neoplasm of unspecified site of left female breast (principal); C78.7 Secondary malignant neoplasm of liver and intrahepatic bile duct; C79.31 Secondary malignant neoplasm of brain
CPT/HCPCS: 36415; 80053; 86304; 82378; 85025; 86300

== ENCOUNTER 2022-08-25 01:20 | Outpatient (CLI) | payer MEDICARE, SELFPAY ==
--- NOTE | 2022-08-25 | DI.CT_ITS ---
Exam(s) CT CHEST/ABD/PEL W EXAM: CT CHEST/ABD/PEL W CLINICAL HISTORY: BREAST CANCER METS TO LIVER C50.912 C78.7 RESTAGING TECHNIQUE: Imaging Protocol: Axial computed tomography images with coronal and sagittal reformatted images were created and reviewed CONTRAST MATERIAL: Intravenous: Omnipaque 350 contrast volume:100 mL Oral: Yes COMPARISON: CT CT CHEST/ABD/PEL W from 05/08/2022 FINDINGS: CHEST: Tracheobronchial tree: Patent where visualized. Pulmonary parenchyma: There are stable pulmonary nodules. The spiculated focus in the medial aspect of the right lower lobe is grossly unchanged compared to the prior examination. There is associated consolidation or atelectasis in the right lower lobe. There is a small right pleural effusion which has slightly increased in size. No new focal areas of consolidation are seen in the lungs. No new p ulmonary nodules are present. Visualized thyroid gland: Unremarkable. Mediastinum and Sheila: No dominant adenopathy or fluid collection. The esophagus is unremarkable. 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 Pleura: No left pleural effusion. No pneumothorax. Heart: The heart is not dilated. Moderate coronary artery calcification is present. No pericardial e ffusion. Pulmonary arteries: No pulmonary emboli are identified. However, the segmental and subsegmental pulm onary arteries are not adequately opacified for evaluation. Aorta: Thoracic aorta non-dilated. Atherosclerosis is present. Lymph nodes: Within normal limits. Surgical clips are seen in the left axilla likely reflecting a fabricio or axillary dissection. Soft tissues: Status post left mastectomy. Bones:Within normal limits for the patient's age. Findings of osseous sclerotic metastatic disease. ABDOMEN: Liver: There again seen innumerable hepatic masses consistent with metastatic disease. The largest m ass is in the left lobe measures 4.2 x 3.7 cm. This compares to 4.1 x 3.7 cm on the prior examinatio n. There is a mass in the anterior segment of the right lobe of the liver laterally measuring 2.9 x 2.7 cm. This compares to 2.1 x 2.0 cm. Portal, Superior Mesenteric, and Splenic Veins: Unremarkable. Gallbladder and Biliary Tract: The gallbladder is absent. No significant biliary ductal dilatation. Pancreas: Normal density, no abnormal calcifications or inflammatory process. Spleen: Splenomegaly. Adrenals: No masses seen. Kidneys: Normal size, contour and axis. No radiodense stones or obstructive uropathy. There is a simp le 1 cm cyst in the left kidney. No follow-up is recommended. Abdominal Aorta: Abdominal portion non-dilated. Atherosclerosis is present. Bowel: No obstruction or bowel wall thickening. Appendix is unremarkable. Peritoneal Cavity: There is a small amount of perihepatic ascites. No free air. Lymph Nodes: Within normal limits. Bones: Within normal limits for the patient's age. Osseous sclerotic metastases are again seen. Soft Tissues: Unremarkable. PELVIS: Bladder: Symmetric distention, no gross wall thickening. Reproductive Organs: Unremarkable as visualized. Lymph Nodes: Within normal limits. Bones: Within normal limits. Osseous sclerotic metastases are again seen. IMPRESSION: 1. Stable appearance of the chest. No new pulmonary nodules are present. 2. Stable spiculated focus in the medial aspect of the right lower lobe with adjacent atelectasis. S light increase in size of the small right pleural effusion. 3. Innumerable hepatic metastases. Some of which have shown slight increase in size. 4. Small amount of abdominal ascites. 5. Sclerotic osseous metastatic disease. RADIATION DOSE DELIVERED: 1,824.17mGy.cm Total DLP DATA REPOSITORY: All CT scans at this facility are submitted to the National Radiology Data Registry (NRDR) Dose Index Registry (DIR) with the [employer] (ACR). RADIATION OPTIMIZATION: All CT scans at this facility use at least one of these dose optimization te chniques: automated exposure control; mA and/or kV adjustment per patient size (includes targeted exa ms where dose is matched to clinical indication); or iterative reconstruction.
[2022-08-25] MEDS: Breeza Beverage 473 ML BTL 900 ML PO (07:44)
[2022-08-25] MEDS: Omnipaque 350 MG/ML 50 ML BTL PO (07:44)
[2022-08-25] MEDS: Normal Saline - Diluent 50 ML VIAL IJ (09:01)
[2022-08-25] MEDS: Omnipaque 350 MG/ML 500 ML BTL-Imaging package 100 ML IJ (09:03)
== END 2022-08-25 01:40 ==
LOC: DI 01:21
PROVIDERS: PCP Family Medicine; Visit Provider Nurse Practitioner Family
DX: C50.912 Malignant neoplasm of unspecified site of left female breast (principal); C78.7 Secondary malignant neoplasm of liver and intrahepatic bile duct; J98.4 Other disorders of lung; R91.8 Other nonspecific abnormal finding of lung field; J90 Pleural effusion, not elsewhere classified; Z90.12 Acquired absence of left breast and nipple; R16.1 Splenomegaly, not elsewhere classified; R18.8 Other ascites; C79.51 Secondary malignant neoplasm of bone
CPT/HCPCS: 36415; 74177; 80053; 71260; 82378; 85025; Q9967

== ENCOUNTER 2022-08-25 10:27 | Outpatient (CLI) | payer MEDICARE, SELFPAY ==
[2022-08-25 09:36] LABS: Abs Immature Grans 0.01 10^3/uL (0.0-0.06); Absolute Basophil Count 0.03 10^3/uL (0.0-0.2); Absolute Eosinophil Count 0.07 10^3/uL (0.0-0.7); Absolute Lymphocyte Count 0.79 10^3/uL (1.2-3.4); Absolute Monocyte Count 0.49 10^3/uL (0.1-0.8); Absolute Neutrophil Count 2.09 10^3/uL (1.2-6.7); Basophils % 0.9; HCT 33.4 % (36.0-46.0); HGB 11.1 g/dL (11.2-15.7); Immature Grans % 0.3; Lymphocytes % 22.7; MCH 33.3 pg (27.0-33.0); MCHC 33.2 % (32.0-36.0); MCV 100 fL (80-95); MPV 9.4 fL (8.0-11.0); Monocytes % 14.1; Platelet Count 111 10^3/uL (130-400); RBC 3.33 10^6/uL (3.93-5.22); RDW 15.8 % (11.7-14.6); RDW-SD 57.4 fL; WBC 3.48 10^3/uL (4.4-10.8)
[2022-08-25 09:54] LABS: ALT 33 U/L (14-59); AST 65 U/L (15-37); Alkaline Phosphatase 123 U/L (46-116); Anion Gap 7.4 mmol/L (3-11); BUN 14 mg/dL (7-18); Bilirubin, Total 0.6 mg/dL (0.2-1.0); CO2 27.6 mmol/L (21.0-32.0); CREATININE 0.7 mg/dL (0.55-1.02); Calcium 8.7 mg/dL (8.5-10.1); Chloride 106 mmol/L (98-107); Estimated GFR 91.26 (mL/min/1.73m2); Glucose 133 mg/dL (74-106); Potassium 3.9 mmol/L (3.5-5.1); Sodium 141 mmol/L (136-145); Total Protein 6.6 g/dL (6.4-8.2)
[2022-08-25 23:14] LABS: CEA 3.9 ng/mL (See Note)
== END 2022-08-25 10:28 | disposition home or self-care (01) ==
LOC: LBO 10:28
PROVIDERS: PCP Family Medicine; Visit Provider Internal Medicine Hematology & Oncology
DX: C50.912 Malignant neoplasm of unspecified site of left female breast (principal); C79.31 Secondary malignant neoplasm of brain; C78.7 Secondary malignant neoplasm of liver and intrahepatic bile duct
CPT/HCPCS: 36415; 80053; 82378; 85025

== ENCOUNTER 2022-09-03 01:13 | Outpatient (CLI) | payer MEDICARE, SELFPAY ==
--- NOTE | 2022-09-03 | DI.MRI_ITS ---
Exam(s) MR BRAIN WO/W EXAM: MR BRAIN WO/W CLINICAL HISTORY: BRAIN CANCER C79.31, BREAST CANCER METS TO BRAIN FU AFTER THERAPY. TECHNIQUE: Multiplanar multisequence MRI of the brain was performed. CONTRAST MATERIAL: IV Contrast: 18 ML of Dotarem contrast administered. COMPARISON: MR MR BRAIN WO/W from 05/04/2022 FINDINGS: VENTRICLES AND EXTRA AXIAL SPACES: Normal in size and morphology for the patient's age. HEMORRHAGE: None. CEREBRAL PARENCHYMA: No focus of restricted diffusion to suggest acute infarct. Stable appearance of enhancement in the high right parietal gyrus.. Slight decreased prominence 2 enhancing foci in the high left frontal sulci. Decrease in prominence enhancing lesion in the right frontal lobe. Slight decreased prominence enhancing lesion left temporoparietal region. Slight interval decrease in size in lesion in the inferior right cerebellum. Decreased conspicuity of tiny enhancing focus left cereb ellar hemisphere. No new foci identified. MIDLINE SHIFT: None. CALVARIUM: Left frontal skull lesions unchanged. VISUALIZED PARANASAL SINUSES/MASTOIDS: Clear. IMPRESSION: Interval mild decrease in prominence of previously noted enhancing metastatic foci in the brain and a nterior left skull. No new lesions. DATA REPOSITORY:
[2022-09-03] MEDS: Gadoterate meglumine 20 ML VIAL IVP (15:16)
[2022-09-03] MEDS: Normal Saline Flush 10 ML SYR IVP (15:18)
== END 2022-09-03 01:33 ==
LOC: DI 01:14
PROVIDERS: PCP Family Medicine; Visit Provider Radiology Radiation Oncology
DX: C79.31 Secondary malignant neoplasm of brain (principal); Z85.3 Personal history of malignant neoplasm of breast
CPT/HCPCS: 70553

== ENCOUNTER 2022-09-18 01:09 | Outpatient (RCR) | payer MEDICARE, SELFPAY ==
[2022-09-18] MEDS: Normal Saline Flush 10 ML SYR IVP (10:20)
[2022-09-18 11:04] LABS: Abs Immature Grans 0.01 10^3/uL (0.0-0.06); Absolute Basophil Count 0.02 10^3/uL (0.0-0.2); Absolute Eosinophil Count 0.07 10^3/uL (0.0-0.7); Absolute Lymphocyte Count 0.78 10^3/uL (1.2-3.4); Basophils % 0.5; Eosinophils % 1.7; HCT 34.3 % (36.0-46.0); HGB 11.3 g/dL (11.2-15.7); Immature Grans % 0.2; Lymphocytes % 19.4; MCH 33.1 pg (27.0-33.0); MCHC 32.9 % (32.0-36.0); MCV 101 fL (80-95); MPV 10.9 fL (8.0-11.0); Monocytes % 12.4; Neutrophils % 65.8; Platelet Count 105 10^3/uL (130-400); RBC 3.41 10^6/uL (3.93-5.22); RDW 16.2 % (11.7-14.6); RDW-SD 59.4 fL; WBC 4.02 10^3/uL (4.4-10.8)
[2022-09-18 11:12] LABS: Absolute Neutrophil Count 2.65 10^3/uL (1.2-6.7)
[2022-09-18 11:21] LABS: ALT 50 U/L (14-59); AST 112 U/L (15-37); Albumin 2.9 g/dL (3.4-5.0); Alkaline Phosphatase 140 U/L (46-116); Anion Gap 8.9 mmol/L (3-11); BUN 10 mg/dL (7-18); Bilirubin, Total 1.2 mg/dL (0.2-1.0); CO2 25.1 mmol/L (21.0-32.0); CREATININE 0.7 mg/dL (0.55-1.02); Calcium 8.9 mg/dL (8.5-10.1); Chloride 109 mmol/L (98-107); Estimated GFR 91.26 (mL/min/1.73m2); Glucose 176 mg/dL (74-106); Potassium 3.6 mmol/L (3.5-5.1); Sodium 143 mmol/L (136-145); Total Protein 6.8 g/dL (6.4-8.2)
[2022-09-21 13:50] LABS: Cancer Ag 15-3 42 U/mL (<30)
== END 2022-10-04 23:59 | disposition home or self-care (01) ==
LOC: INF 01:09
PROVIDERS: PCP Family Medicine; Visit Provider Internal Medicine Hematology & Oncology
DX: C50.912 Malignant neoplasm of unspecified site of left female breast (principal); Z45.2 Encounter for adjustment and management of vascular access device
CPT/HCPCS: 36591; 80053; 86304; 85025; 86300

== ENCOUNTER 2022-10-20 01:12 | Outpatient (CLI) | payer MEDICARE, SELFPAY ==
--- NOTE | 2022-10-20 | DI.CT_ITS ---
Exam(s) CT CHEST/ABD/PEL W EXAM: CT CHEST/ABD/PEL W CLINICAL HISTORY: BREAST CANCER METS TO LIVER C50.912 C78.7 RESTAGING TECHNIQUE: Imaging Protocol: Axial computed tomography images with coronal and sagittal reformatted images were created and reviewed CONTRAST MATERIAL: Intravenous: Omnipaque 350 contrast volume:100 mL Oral: Yes COMPARISON: CT CT CHEST/ABD/PEL W from 08/25/2022 FINDINGS: CHEST: Tracheobronchial tree: Patent where visualized. Pulmonary parenchyma: There have been interval increase in size of the pulmonary nodules. There is a 0.6 cm nodule in the right middle lobe previously measuring 3 mm. There is a 0.8 cm peripheral nodu le in the right middle lobe which previously measured 5 mm. There is persistent pleural thickening a nd nodularity in the right lung base. No architectural distortion. Visualized thyroid gland: Unremarkable. Mediastinum and Sheila: No dominant adenopathy or fluid collection. The esophagus is unremarkable. Pleura: There is a persistent small right pleural effusion. No left pleural effusion. No pneumothor ax. Heart: The heart is not dilated. Coronary artery calcification is present. No pericardial effusion. Pulmonary arteries: No pulmonary emboli are identified. Aorta: Thoracic aorta non-dilated. No evidence of dissection. Atherosclerosis is present. Lymph nodes: No significant axillary adenopathy. There are surgical clips seen in the left axilla. Tubes, Catheters, and Lines: There is a right-sided central venous catheter in good position. Soft tissues: The patient is status post left mastectomy. Bones:Findings of sclerotic osseous metastatic disease are present. There is a new compression defor mity of the superior endplate of L1. Loss of less than 10 percent of the height of the vertebral bod y is seen. No central spinal canal stenosis is present. ABDOMEN: Liver: Normal density. There has been interval increase in the number and size of the hepatic metasta ses compared to the prior examination. In the peripheral aspect of the anterior segment of the right lobe of the liver there is a 3.6 x 4.0 cm mass. This compares to 3.7 x 2.5 cm on the prior examinat ion. Portal, Superior Mesenteric, and Splenic Veins: Unremarkable. 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 Gallbladder and Biliary Tract: Status post cholecystectomy. No significant biliary ductal dilatation . Pancreas: Normal density, no abnormal calcifications or inflammatory process. Spleen: Splenomegaly. Adrenals: No masses seen. Kidneys: Normal size, contour and axis. No radiodense stones or obstructive uropathy. Bilateral simpl e renal cysts. No follow-up is recommended. Abdominal Aorta: Abdominal portion non-dilated. Atherosclerosis. Bowel: No obstruction or bowel wall thickening. No evidence of appendicitis. Peritoneal Cavity: Moderate amount of abdominal and pelvic ascites. No free air. Lymph Nodes: Within normal limits. Bones: Within normal limits for the patient's age. Findings of osseous metastatic disease throughout the spine and pelvis. Soft Tissues: Unremarkable. PELVIS: Bladder: Symmetric distention, no gross wall thickening. Reproductive Organs: Unremarkable as visualized. Lymph Nodes: Within normal limits. Bones: Within normal limits. IMPRESSION: 1. Progression of metastatic disease seen in the chest and liver. 2. New compression fracture of the superior endplate of L1. There is loss of less than 10 percent of the height of the vertebral body. No central spinal canal stenosis is present. 3. Moderate amount of abdominal pelvic ascites. RADIATION DOSE DELIVERED: 1,991.4mGy.cm Total DLP DATA REPOSITORY: All CT scans at this facility are submitted to the National Radiology Data Registry (NRDR) Dose Index Registry (DIR) with the [employer] (ACR). RADIATION OPTIMIZATION: All CT scans at this facility use at least one of these dose optimization te chniques: automated exposure control; mA and/or kV adjustment per patient size (includes targeted exa ms where dose is matched to clinical indication); or iterative reconstruction.
[2022-10-20] MEDS: Omnipaque 350 MG/ML 50 ML BTL IJ (09:33)
[2022-10-20] MEDS: Breeza Beverage 473 ML BTL 950 ML PO (09:34)
[2022-10-20] MEDS: Normal Saline - Diluent 50 ML VIAL IJ (11:08)
[2022-10-20] MEDS: Omnipaque 350 MG/ML 500 ML BTL-Imaging package IJ (11:09)
== END 2022-10-20 01:32 ==
PROVIDERS: PCP Family Medicine; Visit Provider Nurse Practitioner Family
DX: C50.912 Malignant neoplasm of unspecified site of left female breast (principal); C78.7 Secondary malignant neoplasm of liver and intrahepatic bile duct
CPT/HCPCS: 74177; 96523; 71260; Q9967

== ENCOUNTER 2022-11-03 03:19 | Outpatient (RCR) | payer MEDICARE, SELFPAY ==
[2022-10-09] MEDS: Normal Saline Flush 10 ML SYR IVP (12:21)
[2022-10-09 12:27] LABS: Abs Immature Grans 0.02 10^3/uL (0.0-0.06); Absolute Basophil Count 0.04 10^3/uL (0.0-0.2); Absolute Eosinophil Count 0.08 10^3/uL (0.0-0.7); Absolute Monocyte Count 0.55 10^3/uL (0.1-0.8); Absolute Neutrophil Count 3.28 10^3/uL (1.2-6.7); Basophils % 0.8; Eosinophils % 1.7; HCT 34.9 % (36.0-46.0); HGB 11.6 g/dL (11.2-15.7); Immature Grans % 0.4; Lymphocytes % 16.8; MCH 33.6 pg (27.0-33.0); MCHC 33.2 % (32.0-36.0); MCV 101 fL (80-95); MPV 10.6 fL (8.0-11.0); Monocytes % 11.5; Neutrophils % 68.8; Platelet Count 112 10^3/uL (130-400); RBC 3.45 10^6/uL (3.93-5.22); RDW 17.6 % (11.7-14.6); RDW-SD 65.6 fL; WBC 4.77 10^3/uL (4.4-10.8)
[2022-10-09 12:42] LABS: ALT 54 U/L (14-59); AST 143 U/L (15-37); Albumin 2.8 g/dL (3.4-5.0); Alkaline Phosphatase 185 U/L (46-116); Anion Gap 8.9 mmol/L (3-11); BUN 13 mg/dL (7-18); Bilirubin, Total 1.6 mg/dL (0.2-1.0); CO2 25.1 mmol/L (21.0-32.0); CREATININE 0.7 mg/dL (0.55-1.02); Calcium 9.5 mg/dL (8.5-10.1); Chloride 107 mmol/L (98-107); Estimated GFR 91.26 (mL/min/1.73m2); Glucose 137 mg/dL (74-106); Potassium 3.5 mmol/L (3.5-5.1); Sodium 141 mmol/L (136-145); Total Protein 6.9 g/dL (6.4-8.2)
[2022-10-12 19:48] LABS: Cancer Ag 15-3 49 U/mL (<30)
[2022-10-20] MEDS: Normal Saline Flush 10 ML SYR IVP (09:24)
[2022-10-20] MEDS: Heparin 500 UNITS/5 ML SYRINGE IV (09:24)
[2022-10-30] MEDS: Normal Saline Flush 10 ML SYR IVP (12:18)
[2022-10-30 12:36] LABS: Abs Immature Grans 0.02 10^3/uL (0.0-0.06); Absolute Basophil Count 0.04 10^3/uL (0.0-0.2); Absolute Eosinophil Count 0.04 10^3/uL (0.0-0.7); Absolute Lymphocyte Count 0.66 10^3/uL (1.2-3.4); Absolute Monocyte Count 0.65 10^3/uL (0.1-0.8); Absolute Neutrophil Count 3.69 10^3/uL (1.2-6.7); Basophils % 0.8; Eosinophils % 0.8; HGB 11.6 g/dL (11.2-15.7); Immature Grans % 0.4; Lymphocytes % 12.9; MCH 33.9 pg (27.0-33.0); MCHC 32.2 % (32.0-36.0); MCV 105 fL (80-95); MPV 9.7 fL (8.0-11.0); Monocytes % 12.7; Neutrophils % 72.4; Platelet Count 104 10^3/uL (130-400); RBC 3.42 10^6/uL (3.93-5.22); RDW 17.3 % (11.7-14.6); RDW-SD 67.7 fL
[2022-10-30 12:52] LABS: ALT 66 U/L (14-59); AST 219 U/L (15-37); Albumin 2.8 g/dL (3.4-5.0); Alkaline Phosphatase 332 U/L (46-116); BUN 17 mg/dL (7-18); Bilirubin, Total 2.4 mg/dL (0.2-1.0); CREATININE 0.8 mg/dL (0.55-1.02); Calcium 9.9 mg/dL (8.5-10.1); Chloride 104 mmol/L (98-107); Estimated GFR 77.75 (mL/min/1.73m2); Glucose 135 mg/dL (74-106); Potassium 4.2 mmol/L (3.5-5.1); Sodium 139 mmol/L (136-145); Total Protein 6.8 g/dL (6.4-8.2)
[2022-11-04 13:17] LABS: Cancer Ag 15-3 49 U/mL (<30)
== END 2022-11-04 23:59 | disposition home or self-care (01) ==
LOC: INF 03:19
PROVIDERS: PCP Family Medicine; Visit Provider Internal Medicine Hematology & Oncology
DX: C78.7 Secondary malignant neoplasm of liver and intrahepatic bile duct (principal); C50.912 Malignant neoplasm of unspecified site of left female breast; Z45.2 Encounter for adjustment and management of vascular access device
CPT/HCPCS: 36591; 80053; 86304; 96523; 85025; 86300